=== PATIENT | male | born 1970 | race Caucasian/White ===

== ENCOUNTER → 2023-06-05 | Outpatient (REF) | payer MEDICAID, SELFPAY ==
[2024-01-28 12:02] LABS: Hematocrit 36.5 % (40-54); Hemoglobin 12.1 g/dL (13.0-16.5); Mean Corp Hgb Conc 33.2 g/dL (32-36); Mean Corpuscular Hgb 30.8 pg (27.0-32.0); Mean Corpuscular Volume 92.9 fL (80-94); Red Blood Count 3.93 M/mm3 (4.6-6.2); White Blood Count 4.3 K/mm3 (4.4-11.0)
[2024-01-28 12:03] LABS: Mean Platelet Vol. 10.4 fl (6.2-12.0); Platelet Count 366 K/mm3 (150-450); RBC Distribution Width CV 13.7 % (11.6-14.6); RBC Distribution Width SD 47.2 fl (35.1-43.9)
[2024-01-29 12:04] LABS: BUN 18 mg/dL (7-18); Glucose 86 mg/dL (74-106)
[2024-01-29 12:05] LABS: Albumin, Serum 2.7 g/dL (3.2-5.0); BUN/Creat Ratio 14.4 RATIO (10-20); Creatinine, Serum 1.25 mg/dL (0.70-1.30); EST Glomerular Filtration Rate 64 mL/min (>60); Est Glom Filt Rate - Afr Amer 78 mL/min (>60); Globulin 3.7 g/dL (2.2-4.2); Protein, Total 6.4 g/dL (6.4-8.2)
[2024-01-29 12:06] LABS: ALB/GLOB Ratio 0.7 RATIO (0.9-2.4); AST(SGOT) 11 U/L (15-37); Alanine Aminotransfer ALT/SGPT 19 U/L (16-61); Alkaline Phosphatase 79 U/L (45-117); Calcium,Total 8.5 mg/dL (8.5-10.1)
[2024-01-29 12:07] LABS: Anion Gap 1 (5-15); Chloride 106 mmol/L (98-107); Potassium 3.8 mmol/L (3.5-5.1); Sodium Level 140 mmol/L (136-145)
== END | disposition home or self-care (01) ==
LOC: OLS.SANC 07:45
PROVIDERS: Visit Provider Internal Medicine
DX: Z79.899 Other long term (current) drug therapy (principal)
CPT/HCPCS: 36415; 80053; 85027

== ENCOUNTER → 2023-07-03 | Outpatient (REF) | payer MEDICAID, SELFPAY ==
[2023-07-03 08:46] LABS: Hematocrit 39.8 % (40-54); Hemoglobin 12.8 g/dL (13.0-16.5); Mean Corp Hgb Conc 32.2 g/dL (32-36); Mean Corpuscular Hgb 29.7 pg (27.0-32.0); Mean Corpuscular Volume 92.3 fL (80-94); Mean Platelet Vol. 10.7 fl (6.2-12.0); Platelet Count 201 K/mm3 (150-450); RBC Distribution Width CV 14.3 % (11.6-14.6); RBC Distribution Width SD 48.9 fl (35.1-43.9); Red Blood Count 4.31 M/mm3 (4.6-6.2); White Blood Count 7.8 K/mm3 (4.4-11.0)
[2023-07-03 09:14] LABS: ALB/GLOB Ratio 0.9 RATIO (0.9-2.4); AST(SGOT) 25 U/L (15-37); Alanine Aminotransfer ALT/SGPT 26 U/L (16-61); Albumin, Serum 3.5 g/dL (3.2-5.0); Alkaline Phosphatase 82 U/L (45-117); Anion Gap 6 (5-15); BUN 21 mg/dL (7-18); BUN/Creat Ratio 16.9 RATIO (10-20); Calcium,Total 8.9 mg/dL (8.5-10.1); Chloride 106 mmol/L (98-107); Cholesterol 145 mg/dL (200); Creatinine, Serum 1.24 mg/dL (0.70-1.30); EST Glomerular Filtration Rate 65 mL/min (>60); Est Glom Filt Rate - Afr Amer 79 mL/min (>60); Globulin 3.8 g/dL (2.2-4.2); Glucose 101 mg/dL (74-106); High Density Lipoprotein 37 mg/dL; Potassium 3.8 mmol/L (3.5-5.1); Protein, Total 7.3 g/dL (6.4-8.2); Sodium Level 138 mmol/L (136-145); Triglycerides 99 mg/dL; Very Low Density Lipoprotein 20 mg/dL (5-40)
== END | disposition home or self-care (01) ==
LOC: OLS.SANC 05:00
PROVIDERS: Visit Provider Internal Medicine
DX: N17.1 Acute kidney failure with acute cortical necrosis (principal)
CPT/HCPCS: 36415; 80053; 80061; 82306; 82746; 85027

== ENCOUNTER → 2023-07-13 | Outpatient (REF) | payer MEDICAID, SELFPAY ==
[2023-07-13 10:40] LABS: Thyroid Stim Hormone (TSH) 1.78 uIU/mL (0.358-3.74)
== END | disposition home or self-care (01) ==
LOC: OLS.SANC 04:00
PROVIDERS: Referring Provider Internal Medicine; Visit Provider Internal Medicine
DX: Z79.899 Other long term (current) drug therapy (principal)
CPT/HCPCS: 36415; 84443

== ENCOUNTER → 2023-08-28 | Outpatient (REF) | payer MEDICAID, SELFPAY ==
[2023-08-28 09:08] LABS: Hemoglobin 11.9 g/dL (13.0-16.5); Mean Corp Hgb Conc 33.1 g/dL (32-36); Mean Corpuscular Hgb 31.2 pg (27.0-32.0); Mean Corpuscular Volume 94.2 fL (80-94); Mean Platelet Vol. 10.1 fl (6.2-12.0); Platelet Count 279 K/mm3 (150-450); RBC Distribution Width CV 13.6 % (11.6-14.6); RBC Distribution Width SD 46.5 fl (35.1-43.9); Red Blood Count 3.82 M/mm3 (4.6-6.2); White Blood Count 6.2 K/mm3 (4.4-11.0)
[2023-08-28 09:34] LABS: Anion Gap 6 (5-15); BUN 16 mg/dL (7-18); BUN/Creat Ratio 13.7 RATIO (10-20); Calcium,Total 9.2 mg/dL (8.5-10.1); Chloride 109 mmol/L (98-107); Creatinine, Serum 1.17 mg/dL (0.70-1.30); EST Glomerular Filtration Rate 70 mL/min (>60); Est Glom Filt Rate - Afr Amer 84 mL/min (>60); Glucose 101 mg/dL (74-106); Sodium Level 143 mmol/L (136-145)
== END | disposition home or self-care (01) ==
LOC: OLS.SANC 05:00
PROVIDERS: Visit Provider Internal Medicine
DX: N17.1 Acute kidney failure with acute cortical necrosis (principal); G35 Multiple sclerosis
CPT/HCPCS: 36415; 80048; 85027

== ENCOUNTER → 2023-09-11 | Outpatient (REF) | payer MEDICAID, SELFPAY ==
[2023-09-11 08:43] LABS: Hematocrit 36.9 % (40-54); Mean Corp Hgb Conc 32.5 g/dL (32-36); Mean Corpuscular Hgb 30.8 pg (27.0-32.0); Mean Corpuscular Volume 94.6 fL (80-94); Mean Platelet Vol. 10.6 fl (6.2-12.0); Platelet Count 247 K/mm3 (150-450); RBC Distribution Width CV 13.4 % (11.6-14.6); RBC Distribution Width SD 46.1 fl (35.1-43.9); White Blood Count 6.4 K/mm3 (4.4-11.0)
[2023-09-11 10:58] LABS: Anion Gap 4 (5-15); BUN 19 mg/dL (7-18); BUN/Creat Ratio 15.4 RATIO (10-20); Chloride 109 mmol/L (98-107); Creatinine, Serum 1.23 mg/dL (0.70-1.30); EST Glomerular Filtration Rate 66 mL/min (>60); Est Glom Filt Rate - Afr Amer 79 mL/min (>60); Glucose 96 mg/dL (74-106); Potassium 3.9 mmol/L (3.5-5.1); Sodium Level 140 mmol/L (136-145)
== END | disposition home or self-care (01) ==
LOC: OLS.SANC 05:00
PROVIDERS: Visit Provider Internal Medicine
DX: N17.1 Acute kidney failure with acute cortical necrosis (principal)
CPT/HCPCS: 36415; 80048; 85027

== ENCOUNTER → 2023-10-09 | Outpatient (REF) | payer MEDICAID, SELFPAY ==
[2023-10-09 09:33] LABS: Hematocrit 41.2 % (40-54); Hemoglobin 13.3 g/dL (13.0-16.5); Mean Corp Hgb Conc 32.3 g/dL (32-36); Platelet Count 246 K/mm3 (150-450); RBC Distribution Width CV 12.9 % (11.6-14.6); RBC Distribution Width SD 44.1 fl (35.1-43.9); Red Blood Count 4.43 M/mm3 (4.6-6.2); White Blood Count 7.1 K/mm3 (4.4-11.0)
[2023-10-09 09:43] LABS: Anion Gap 7 (5-15); BUN 15 mg/dL (7-18); BUN/Creat Ratio 12.2 RATIO (10-20); Calcium,Total 9.1 mg/dL (8.5-10.1); Chloride 103 mmol/L (98-107); Creatinine, Serum 1.23 mg/dL (0.70-1.30); EST Glomerular Filtration Rate 66 mL/min (>60); Est Glom Filt Rate - Afr Amer 79 mL/min (>60); Glucose 104 mg/dL (74-106); Potassium 3.9 mmol/L (3.5-5.1); Sodium Level 139 mmol/L (136-145)
== END | disposition home or self-care (01) ==
LOC: OLS.SANC 05:00
PROVIDERS: Visit Provider Internal Medicine
DX: G35 Multiple sclerosis (principal)
CPT/HCPCS: 36415; 80048; 85027

== ENCOUNTER → 2023-12-03 | Outpatient (REF) | payer MEDICAID, SELFPAY ==
[2023-12-03 10:22] LABS: Basophil# 0.04 X10^3/uL; Eosinophil# 0.34 X10^3/uL; Lymphocyte # 1.99 X10^3/ul (0.83-4.51); Monocyte# 0.87 X10^3/uL
[2024-01-29 12:14] LABS: Immunoglobulin A 320 mg/dL (90-386); Immunoglobulin G 1046 mg/dL (603-1613)
[2024-01-29 12:15] LABS: Hemoglobin 13.5 g/dL (13.0-16.5); Immunoglobulin E 112 IU/mL (6-495); Immunoglobulin M 30 mg/dL (20-172); Red Blood Count 4.68 M/mm3 (4.6-6.2); White Blood Count 6.9 K/mm3 (4.4-11.0)
[2024-01-29 12:16] LABS: Hematocrit 42.5 % (40-54); Mean Corp Hgb Conc 31.8 g/dL (32-36); Mean Corpuscular Hgb 28.8 pg (27.0-32.0); Mean Corpuscular Volume 90.8 fL (80-94); Mean Platelet Vol. 10.7 fl (6.2-12.0); Platelet Count 259 K/mm3 (150-450); RBC Distribution Width CV 12.7 % (11.6-14.6); RBC Distribution Width SD 42.1 fl (35.1-43.9)
[2024-01-29 12:17] LABS: Basophil% 0.6 % (0-1); Lymphocyte % 29.1 % (19-41); Monocyte% 12.7 % (0-10); Neutrophil % 51.3 % (47-70)
[2024-01-29 12:18] LABS: Absolute Lymphocyte Count 1.99 X10^3/uL (0.83-4.51); Absolute Neutrophil Count 3.5 X10^3/uL (2.0-7.7); NRBC Flagged by Analyzer 0 % (0-5); Neutrophil # 3.52 X10^3/uL (2.7-7.7)
[2024-01-29 12:19] LABS: BUN 18 mg/dL (7-18); EST Glomerular Filtration Rate 75 mL/min (>60); Est Glom Filt Rate - Afr Amer 91 mL/min (>60); Glucose 85 mg/dL (74-106)
[2024-01-29 12:20] LABS: Albumin, Serum 3.7 g/dL (3.2-5.0); BUN/Creat Ratio 16.4 RATIO (10-20); Globulin 3.6 g/dL (2.2-4.2); Protein, Total 7.3 g/dL (6.4-8.2)
[2024-01-29 12:21] LABS: AST(SGOT) 14 U/L (15-37); Alanine Aminotransfer ALT/SGPT 23 U/L (16-61); Alkaline Phosphatase 80 U/L (45-117); Calcium,Total 9.2 mg/dL (8.5-10.1)
[2024-01-29 12:22] LABS: Anion Gap 4 (5-15); Chloride 108 mmol/L (98-107); Potassium 3.7 mmol/L (3.5-5.1); Sodium Level 139 mmol/L (136-145)
== END | disposition home or self-care (01) ==
LOC: OLS.SANC 05:00
PROVIDERS: Visit Provider Internal Medicine
DX: G35 Multiple sclerosis (principal); N17.1 Acute kidney failure with acute cortical necrosis; M62.82 Rhabdomyolysis
CPT/HCPCS: 36415; 80053; 82784; 82785; 85025

== ENCOUNTER → 2024-01-09 | Outpatient (REF) | payer MEDICAID, SELFPAY ==
[2024-01-29 12:10] LABS: Hemoglobin 13.4 g/dL (13.0-16.5); Red Blood Count 4.74 M/mm3 (4.6-6.2); White Blood Count 7.5 K/mm3 (4.4-11.0)
[2024-01-29 12:11] LABS: Hematocrit 42.6 % (40-54); Mean Corp Hgb Conc 31.5 g/dL (32-36); Mean Corpuscular Hgb 28.3 pg (27.0-32.0); Mean Corpuscular Volume 89.9 fL (80-94); Mean Platelet Vol. 10.2 fl (6.2-12.0); Platelet Count 287 K/mm3 (150-450); RBC Distribution Width CV 13.1 % (11.6-14.6); RBC Distribution Width SD 42.7 fl (35.1-43.9)
[2024-01-29 12:12] LABS: BUN 13 mg/dL (7-18); Creatinine, Serum 1.24 mg/dL (0.70-1.30); EST Glomerular Filtration Rate 65 mL/min (>60); Est Glom Filt Rate - Afr Amer 79 mL/min (>60); Glucose 107 mg/dL (74-106)
[2024-01-29 12:13] LABS: Anion Gap 2 (5-15); BUN/Creat Ratio 10.5 RATIO (10-20); Calcium,Total 9.3 mg/dL (8.5-10.1); Chloride 107 mmol/L (98-107); Potassium 3.7 mmol/L (3.5-5.1); Sodium Level 137 mmol/L (136-145); Thyroid Stim Hormone (TSH) 2.32 uIU/mL (0.358-3.74)
== END | disposition home or self-care (01) ==
LOC: OLS.SANC 05:00
PROVIDERS: Visit Provider Internal Medicine
DX: G35 Multiple sclerosis (principal); Z79.899 Other long term (current) drug therapy
CPT/HCPCS: 36415; 80048; 84443; 85027

== ENCOUNTER → 2024-01-23 | Outpatient (REF) | payer MEDICAID, SELFPAY ==
[2024-01-29 12:10] LABS: Hemoglobin A1c 5.5 % (3.8-5.6)
== END | disposition home or self-care (01) ==
LOC: OLS.SANC 04:00
PROVIDERS: Referring Provider Internal Medicine; Visit Provider Internal Medicine
DX: G35 Multiple sclerosis (principal)
CPT/HCPCS: 36415; 83036

== ENCOUNTER → 2024-01-30 | Outpatient (REF) | payer MEDICAID, SELFPAY ==
[2024-01-30 08:29] LABS: Absolute Lymphocyte Count 1.92 X10^3/uL (0.83-4.51); Absolute Neutrophil Count 4.2 X10^3/uL (2.0-7.7); Basophil# 0.03 X10^3/uL; Basophil% 0.4 % (0-1); Eosinophil# 0.45 X10^3/uL; Hematocrit 40.1 % (40-54); Hemoglobin 12.8 g/dL (13.0-16.5); Lymphocyte # 1.92 X10^3/ul (0.83-4.51); Lymphocyte % 25.7 % (19-41); Mean Corp Hgb Conc 31.9 g/dL (32-36); Mean Corpuscular Volume 90.7 fL (80-94); Mean Platelet Vol. 10.4 fl (6.2-12.0); Monocyte# 0.86 X10^3/uL; Monocyte% 11.5 % (0-10); NRBC Flagged by Analyzer 0 % (0-5); Neutrophil # 4.15 X10^3/uL (2.7-7.7); Neutrophil % 55.5 % (47-70); Platelet Count 288 K/mm3 (150-450); RBC Distribution Width CV 13.3 % (11.6-14.6); RBC Distribution Width SD 44.1 fl (35.1-43.9); Red Blood Count 4.42 M/mm3 (4.6-6.2); White Blood Count 7.5 K/mm3 (4.4-11.0)
[2024-01-30 08:38] LABS: ALB/GLOB Ratio 0.9 RATIO (0.9-2.4); AST(SGOT) 17 U/L (15-37); Alanine Aminotransfer ALT/SGPT 21 U/L (16-61); Albumin, Serum 3.4 g/dL (3.2-5.0); Alkaline Phosphatase 92 U/L (45-117); Anion Gap 6 (5-15); BUN 13 mg/dL (7-18); BUN/Creat Ratio 10.4 RATIO (10-20); Chloride 106 mmol/L (98-107); Creatinine, Serum 1.25 mg/dL (0.70-1.30); EST Glomerular Filtration Rate 64 mL/min (>60); Est Glom Filt Rate - Afr Amer 78 mL/min (>60); Globulin 3.9 g/dL (2.2-4.2); Glucose 115 mg/dL (74-106); Potassium 3.7 mmol/L (3.5-5.1); Protein, Total 7.3 g/dL (6.4-8.2); Sodium Level 139 mmol/L (136-145)
== END | disposition home or self-care (01) ==
LOC: OLS.SANC 05:00
PROVIDERS: Visit Provider Internal Medicine
DX: G35 Multiple sclerosis (principal); G93.32 Myalgic encephalomyelitis/chronic fatigue syndrome; Z79.899 Other long term (current) drug therapy
CPT/HCPCS: 36415; 80053; 85025

== ENCOUNTER → 2024-02-13 | Outpatient (REF) | payer MEDICAID, SELFPAY ==
[2024-02-13 08:16] LABS: Hematocrit 41.7 % (40-54); Mean Corp Hgb Conc 31.2 g/dL (32-36); Mean Corpuscular Hgb 28.4 pg (27.0-32.0); Mean Corpuscular Volume 91.2 fL (80-94); Mean Platelet Vol. 10.3 fl (6.2-12.0); Platelet Count 287 K/mm3 (150-450); RBC Distribution Width CV 13.4 % (11.6-14.6); RBC Distribution Width SD 45.1 fl (35.1-43.9); Red Blood Count 4.57 M/mm3 (4.6-6.2); White Blood Count 7.6 K/mm3 (4.4-11.0)
[2024-02-13 08:27] LABS: Anion Gap 5 (5-15); BUN 10 mg/dL (7-18); BUN/Creat Ratio 8.5 RATIO (10-20); Chloride 108 mmol/L (98-107); Creatinine, Serum 1.18 mg/dL (0.70-1.30); EST Glomerular Filtration Rate 69 mL/min (>60); Est Glom Filt Rate - Afr Amer 83 mL/min (>60); Glucose 98 mg/dL (74-106); Potassium 3.6 mmol/L (3.5-5.1); Sodium Level 140 mmol/L (136-145)
== END | disposition home or self-care (01) ==
LOC: OLS.SANC 05:00
PROVIDERS: Visit Provider Internal Medicine
DX: G35 Multiple sclerosis (principal)
CPT/HCPCS: 36415; 80048; 85027

== ENCOUNTER → 2024-03-04 | Outpatient (REF) | payer MEDICAID, SELFPAY ==
[2024-03-04 09:57] LABS: Hematocrit 42.5 % (40-54); Hemoglobin 13.4 g/dL (13.0-16.5); Mean Corp Hgb Conc 31.5 g/dL (32-36); Mean Corpuscular Hgb 28.6 pg (27.0-32.0); Mean Corpuscular Volume 90.8 fL (80-94); Mean Platelet Vol. 10.3 fl (6.2-12.0); Platelet Count 298 K/mm3 (150-450); RBC Distribution Width CV 13.3 % (11.6-14.6); RBC Distribution Width SD 44.6 fl (35.1-43.9); Red Blood Count 4.68 M/mm3 (4.6-6.2); White Blood Count 7.2 K/mm3 (4.4-11.0)
[2024-03-04 10:09] LABS: Anion Gap 4 (5-15); BUN 12 mg/dL (7-18); BUN/Creat Ratio 9.2 RATIO (10-20); Calcium,Total 9.3 mg/dL (8.5-10.1); Chloride 107 mmol/L (98-107); EST Glomerular Filtration Rate 61 mL/min (>60); Est Glom Filt Rate - Afr Amer 74 mL/min (>60); Glucose 100 mg/dL (74-106); Potassium 4.2 mmol/L (3.5-5.1); Sodium Level 138 mmol/L (136-145)
== END | disposition home or self-care (01) ==
LOC: OLS.SANC 05:30
PROVIDERS: Visit Provider Internal Medicine
DX: G35 Multiple sclerosis (principal)
CPT/HCPCS: 36415; 80048; 85027

== ENCOUNTER → 2024-03-05 | Outpatient (REF) | payer MEDICAID, SELFPAY ==
[2024-03-05 08:33] LABS: Hematocrit 45.2 % (40-54); Hemoglobin 13.9 g/dL (13.0-16.5); Mean Corp Hgb Conc 30.8 g/dL (32-36); Mean Corpuscular Hgb 28.3 pg (27.0-32.0); Mean Corpuscular Volume 92.1 fL (80-94); Mean Platelet Vol. 10.3 fl (6.2-12.0); Platelet Count 310 K/mm3 (150-450); RBC Distribution Width CV 13.4 % (11.6-14.6); Red Blood Count 4.91 M/mm3 (4.6-6.2); White Blood Count 7.9 K/mm3 (4.4-11.0)
[2024-03-05 08:50] LABS: Anion Gap 7 (5-15); BUN 13 mg/dL (7-18); BUN/Creat Ratio 9.9 RATIO (10-20); Calcium,Total 9.5 mg/dL (8.5-10.1); Chloride 106 mmol/L (98-107); Creatinine, Serum 1.31 mg/dL (0.70-1.30); EST Glomerular Filtration Rate 61 mL/min (>60); Est Glom Filt Rate - Afr Amer 74 mL/min (>60); Glucose 93 mg/dL (74-106); Sodium Level 139 mmol/L (136-145)
== END | disposition home or self-care (01) ==
LOC: OLS.SANC 05:00
PROVIDERS: Visit Provider Internal Medicine
DX: G35 Multiple sclerosis (principal); N17.1 Acute kidney failure with acute cortical necrosis
CPT/HCPCS: 36415; 80048; 85027

== ENCOUNTER → 2024-04-07 | Outpatient (REF) | payer MEDICAID, SELFPAY ==
[2024-04-07 08:18] LABS: Hematocrit 44.8 % (40-54); Hemoglobin 13.9 g/dL (13.0-16.5); Mean Corpuscular Hgb 28.1 pg (27.0-32.0); Mean Corpuscular Volume 90.5 fL (80-94); Mean Platelet Vol. 10.2 fl (6.2-12.0); Platelet Count 323 K/mm3 (150-450); RBC Distribution Width CV 13.8 % (11.6-14.6); RBC Distribution Width SD 45.6 fl (35.1-43.9); Red Blood Count 4.95 M/mm3 (4.6-6.2); White Blood Count 8.9 K/mm3 (4.4-11.0)
[2024-04-07 08:34] LABS: Anion Gap 7 (5-15); BUN 14 mg/dL (7-18); BUN/Creat Ratio 11.8 RATIO (10-20); Calcium,Total 9.7 mg/dL (8.5-10.1); Chloride 106 mmol/L (98-107); Creatinine, Serum 1.19 mg/dL (0.70-1.30); EST Glomerular Filtration Rate 68 mL/min (>60); Est Glom Filt Rate - Afr Amer 82 mL/min (>60); Glucose 99 mg/dL (74-106); Potassium 4.2 mmol/L (3.5-5.1); Sodium Level 138 mmol/L (136-145)
== END | disposition home or self-care (01) ==
LOC: OLS.SANC 05:00
PROVIDERS: Visit Provider Internal Medicine
DX: G35 Multiple sclerosis (principal); M62.82 Rhabdomyolysis
CPT/HCPCS: 36415; 80048; 85027

== ENCOUNTER → 2024-04-10 | Outpatient (REF) | payer MEDICAID, SELFPAY ==
[2024-04-10 08:54] LABS: Hematocrit 43.3 % (40-54); Hemoglobin 13.5 g/dL (13.0-16.5); Mean Corp Hgb Conc 31.2 g/dL (32-36); Mean Corpuscular Hgb 28.1 pg (27.0-32.0); Mean Platelet Vol. 10.6 fl (6.2-12.0); Platelet Count 294 K/mm3 (150-450); RBC Distribution Width SD 46.8 fl (35.1-43.9); Red Blood Count 4.81 M/mm3 (4.6-6.2); White Blood Count 8.4 K/mm3 (4.4-11.0)
[2024-04-10 09:06] LABS: Anion Gap 5 (5-15); BUN 15 mg/dL (7-18); BUN/Creat Ratio 11.8 RATIO (10-20); Chloride 109 mmol/L (98-107); Creatinine, Serum 1.27 mg/dL (0.70-1.30); EST Glomerular Filtration Rate 63 mL/min (>60); Est Glom Filt Rate - Afr Amer 76 mL/min (>60); Glucose 97 mg/dL (74-106); Sodium Level 141 mmol/L (136-145)
== END | disposition home or self-care (01) ==
LOC: OLS.SANC 05:00
PROVIDERS: Visit Provider Internal Medicine
DX: G35 Multiple sclerosis (principal)
CPT/HCPCS: 36415; 80048; 85027

== ENCOUNTER → 2024-06-02 | Outpatient (REF) | payer MEDICAID, SELFPAY ==
[2024-06-02 08:31] LABS: Hematocrit 43.9 % (40-54); Hemoglobin 13.8 g/dL (13.0-16.5); Mean Corp Hgb Conc 31.4 g/dL (32-36); Mean Corpuscular Hgb 27.5 pg (27.0-32.0); Mean Corpuscular Volume 87.6 fL (80-94); Mean Platelet Vol. 10.9 fl (6.2-12.0); Platelet Count 322 K/mm3 (150-450); RBC Distribution Width CV 14.4 % (11.6-14.6); RBC Distribution Width SD 46.1 fl (35.1-43.9); Red Blood Count 5.01 M/mm3 (4.6-6.2); White Blood Count 8.9 K/mm3 (4.4-11.0)
[2024-06-02 08:59] LABS: AST(SGOT) 19 U/L (15-37); Alanine Aminotransfer ALT/SGPT 22 U/L (16-61); Albumin, Serum 3.8 g/dL (3.2-5.0); Alkaline Phosphatase 120 U/L (45-117); Anion Gap 7 (5-15); BUN 9 mg/dL (7-18); BUN/Creat Ratio 7.7 RATIO (10-20); Calcium,Total 8.9 mg/dL (8.5-10.1); Chloride 105 mmol/L (98-107); Creatinine, Serum 1.17 mg/dL (0.70-1.30); EST Glomerular Filtration Rate 69 mL/min (>60); Est Glom Filt Rate - Afr Amer 84 mL/min (>60); Globulin 3.8 g/dL (2.2-4.2); Glucose 102 mg/dL (74-106); Potassium 3.8 mmol/L (3.5-5.1); Protein, Total 7.6 g/dL (6.4-8.2); Sodium Level 138 mmol/L (136-145)
[2024-06-03 05:08] LABS: Immunoglobulin G 1047 mg/dL (603-1613)
== END | disposition home or self-care (01) ==
LOC: OLS.SANC 05:00
PROVIDERS: Visit Provider Internal Medicine
DX: G35 Multiple sclerosis (principal); N17.1 Acute kidney failure with acute cortical necrosis; G93.32 Myalgic encephalomyelitis/chronic fatigue syndrome
CPT/HCPCS: 36415; 80053; 82784; 85027

== ENCOUNTER → 2024-06-09 | Outpatient (REF) | payer MEDICAID, SELFPAY ==
[2024-06-09 08:47] LABS: Absolute Lymphocyte Count 2.49 X10^3/uL (0.83-4.51); Absolute Neutrophil Count 3.3 X10^3/uL (2.0-7.7); Basophil# 0.05 X10^3/uL; Basophil% 0.7 % (0-1); Eosinophil# 0.55 X10^3/uL; Eosinophils% 7.7 % (0-5); Hematocrit 45.4 % (40-54); Hemoglobin 14.2 g/dL (13.0-16.5); Lymphocyte # 2.49 X10^3/ul (0.83-4.51); Mean Corp Hgb Conc 31.3 g/dL (32-36); Mean Corpuscular Hgb 27.4 pg (27.0-32.0); Mean Corpuscular Volume 87.5 fL (80-94); Mean Platelet Vol. 10.4 fl (6.2-12.0); Monocyte# 0.71 X10^3/uL; NRBC Flagged by Analyzer 0 % (0-5); Neutrophil # 3.26 X10^3/uL (2.7-7.7); Neutrophil % 45.9 % (47-70); Platelet Count 335 K/mm3 (150-450); RBC Distribution Width CV 14.5 % (11.6-14.6); RBC Distribution Width SD 46.3 fl (35.1-43.9); Red Blood Count 5.19 M/mm3 (4.6-6.2); White Blood Count 7.1 K/mm3 (4.4-11.0)
== END | disposition home or self-care (01) ==
LOC: OLS.SANC 05:00
PROVIDERS: Visit Provider Internal Medicine
DX: N17.1 Acute kidney failure with acute cortical necrosis (principal); G35 Multiple sclerosis; Z79.899 Other long term (current) drug therapy
CPT/HCPCS: 36415; 85025

== ENCOUNTER → 2024-07-07 | Outpatient (REF) | payer MEDICAID, SELFPAY ==
[2024-07-07 08:39] LABS: Hematocrit 43.3 % (40-54); Hemoglobin 13.5 g/dL (13.0-16.5); Mean Corp Hgb Conc 31.2 g/dL (32-36); Mean Corpuscular Hgb 27.6 pg (27.0-32.0); Mean Corpuscular Volume 88.5 fL (80-94); Mean Platelet Vol. 10.2 fl (6.2-12.0); Platelet Count 320 K/mm3 (150-450); RBC Distribution Width CV 14.7 % (11.6-14.6); RBC Distribution Width SD 47.8 fl (35.1-43.9); Red Blood Count 4.89 M/mm3 (4.6-6.2); White Blood Count 7.7 K/mm3 (4.4-11.0)
[2024-07-07 08:59] LABS: Anion Gap 5 (5-15); BUN 11 mg/dL (7-18); BUN/Creat Ratio 11.4 RATIO (10-20); Chloride 107 mmol/L (98-107); Creatinine, Serum 0.96 mg/dL (0.70-1.30); EST Glomerular Filtration Rate 87 mL/min (>60); Est Glom Filt Rate - Afr Amer 105 mL/min (>60); Glucose 109 mg/dL (74-106); Potassium 3.5 mmol/L (3.5-5.1); Sodium Level 139 mmol/L (136-145)
== END | disposition home or self-care (01) ==
LOC: OLS.SANC 05:00
PROVIDERS: Visit Provider Internal Medicine
DX: G35 Multiple sclerosis (principal)
CPT/HCPCS: 36415; 80048; 85027

== ENCOUNTER → 2024-07-28 | Outpatient (REF) | payer MEDICAID, SELFPAY ==
[2024-07-28 10:03] LABS: Hemoglobin A1c 5.8 % (3.8-5.6)
== END | disposition home or self-care (01) ==
LOC: OLS.SANC 04:00
PROVIDERS: Referring Provider Internal Medicine; Visit Provider Internal Medicine
DX: E11.9 Type 2 diabetes mellitus without complications (principal)
CPT/HCPCS: 36415; 83036

== ENCOUNTER → 2024-08-07 | Outpatient (REF) | payer MEDICAID, SELFPAY ==
[2024-08-07 08:40] LABS: Hematocrit 43.2 % (40-54); Hemoglobin 13.5 g/dL (13.0-16.5); Mean Corp Hgb Conc 31.3 g/dL (32-36); Mean Corpuscular Hgb 27.2 pg (27.0-32.0); Mean Corpuscular Volume 87.1 fL (80-94); Mean Platelet Vol. 10.5 fl (6.2-12.0); Platelet Count 328 K/mm3 (150-450); RBC Distribution Width CV 14.6 % (11.6-14.6); RBC Distribution Width SD 46.7 fl (35.1-43.9); Red Blood Count 4.96 M/mm3 (4.6-6.2); White Blood Count 5.8 K/mm3 (4.4-11.0)
[2024-08-07 08:53] LABS: Anion Gap 6 (5-15); BUN 10 mg/dL (7-18); BUN/Creat Ratio 8.8 RATIO (10-20); Calcium,Total 9.5 mg/dL (8.5-10.1); Chloride 106 mmol/L (98-107); Creatinine, Serum 1.13 mg/dL (0.70-1.30); EST Glomerular Filtration Rate 72 mL/min (>60); Est Glom Filt Rate - Afr Amer 87 mL/min (>60); Glucose 92 mg/dL (74-106); Potassium 3.8 mmol/L (3.5-5.1); Sodium Level 138 mmol/L (136-145)
== END | disposition home or self-care (01) ==
LOC: OLS.SANC 05:00
PROVIDERS: Visit Provider Internal Medicine
DX: N17.1 Acute kidney failure with acute cortical necrosis (principal); K21.9 Gastro-esophageal reflux disease without esophagitis; G35 Multiple sclerosis
CPT/HCPCS: 36415; 80048; 85027

== ENCOUNTER → 2024-09-02 | Outpatient (REF) | payer MEDICAID, SELFPAY ==
[2024-09-02 08:32] LABS: Hematocrit 41.9 % (40-54); Hemoglobin 13.3 g/dL (13.0-16.5); Mean Corp Hgb Conc 31.7 g/dL (32-36); Mean Corpuscular Hgb 27.9 pg (27.0-32.0); Mean Platelet Vol. 10.3 fl (6.2-12.0); Platelet Count 358 K/mm3 (150-450); RBC Distribution Width CV 14.6 % (11.6-14.6); RBC Distribution Width SD 47.1 fl (35.1-43.9); Red Blood Count 4.76 M/mm3 (4.6-6.2); White Blood Count 7.3 K/mm3 (4.4-11.0)
[2024-09-02 08:56] LABS: Anion Gap 8 (5-15); BUN 10 mg/dL (7-18); BUN/Creat Ratio 9.3 RATIO (10-20); Chloride 105 mmol/L (98-107); Creatinine, Serum 1.07 mg/dL (0.70-1.30); EST Glomerular Filtration Rate 77 mL/min (>60); Est Glom Filt Rate - Afr Amer 93 mL/min (>60); Glucose 95 mg/dL (74-106); Potassium 3.8 mmol/L (3.5-5.1); Sodium Level 140 mmol/L (136-145)
== END | disposition home or self-care (01) ==
LOC: OLS.SANC 04:00
PROVIDERS: Referring Provider Internal Medicine; Visit Provider Internal Medicine
DX: G35 Multiple sclerosis (principal); N17.1 Acute kidney failure with acute cortical necrosis
CPT/HCPCS: 36415; 80048; 85027

== ENCOUNTER → 2024-11-05 | Outpatient (REF) | payer MEDICAID, SELFPAY ==
[2024-11-05 09:11] LABS: Hemoglobin 12.9 g/dL (13.0-16.5); Mean Corp Hgb Conc 31.5 g/dL (32-36); Mean Corpuscular Hgb 27.6 pg (27.0-32.0); Mean Corpuscular Volume 87.8 fL (80-94); Mean Platelet Vol. 10.8 fl (6.2-12.0); Platelet Count 306 K/mm3 (150-450); RBC Distribution Width CV 15.7 % (11.6-14.6); RBC Distribution Width SD 50.1 fl (35.1-43.9); Red Blood Count 4.67 M/mm3 (4.6-6.2); White Blood Count 7.4 K/mm3 (4.4-11.0)
[2024-11-05 09:36] LABS: Anion Gap 11 (5-15); BUN 9 mg/dL (4-19); BUN/Creat Ratio 7.6 RATIO (10-20); Calcium,Total 9.1 mg/dL (7.6-11.0); Carbon Dioxide 24.5 mmol/L (21.0-32.0); Chloride 107 mmol/L (98-108); Creatinine, Serum 1.12 mg/dL (0.70-1.20); EST Glomerular Filtration Rate 79 (>60); Glucose 105 mg/dL (70-99); Potassium 3.9 mmol/L (3.3-5.1); Sodium Level 142 mmol/L (133-145)
== END | disposition home or self-care (01) ==
LOC: OLS.SANC 05:00
PROVIDERS: Visit Provider Internal Medicine
DX: G35 Multiple sclerosis (principal); G93.32 Myalgic encephalomyelitis/chronic fatigue syndrome
CPT/HCPCS: 36415; 80048; 85027

== ENCOUNTER → 2024-12-01 | Outpatient (REF) | payer MEDICAID, SELFPAY ==
[2024-12-01 08:52] LABS: Absolute Lymphocyte Count 2.43 X10^3/uL (0.83-4.51); Absolute Neutrophil Count 4.8 X10^3/uL (2.0-7.7); Basophil# 0.04 X10^3/uL; Basophil% 0.5 % (0-1); Eosinophil# 0.29 X10^3/uL; Eosinophils% 3.4 % (0-5); Hematocrit 41.4 % (40-54); Hemoglobin 13.3 g/dL (13.0-16.5); Lymphocyte # 2.43 X10^3/ul (0.83-4.51); Lymphocyte % 28.7 % (19-41); Mean Corp Hgb Conc 32.1 g/dL (32-36); Mean Corpuscular Hgb 27.8 pg (27.0-32.0); Mean Corpuscular Volume 86.6 fL (80-94); Mean Platelet Vol. 10.6 fl (6.2-12.0); Monocyte# 0.82 X10^3/uL; Monocyte% 9.7 % (0-10); NRBC Flagged by Analyzer 0 % (0-5); Neutrophil # 4.83 X10^3/uL (2.7-7.7); Neutrophil % 57.1 % (47-70); Platelet Count 326 K/mm3 (150-450); RBC Distribution Width CV 15.4 % (11.6-14.6); RBC Distribution Width SD 49.5 fl (35.1-43.9); Red Blood Count 4.78 M/mm3 (4.6-6.2); White Blood Count 8.5 K/mm3 (4.4-11.0)
[2024-12-01 09:05] LABS: ALB/GLOB Ratio 1.3 RATIO (0.9-2.4); AST(SGOT) 23 U/L (<=37); Alanine Aminotransfer ALT/SGPT 13 U/L (<=46); Alkaline Phosphatase 120 U/L (40-129); Anion Gap 10 (5-15); BUN 7 mg/dL (4-19); BUN/Creat Ratio 7.2 RATIO (10-20); Calcium,Total 9.5 mg/dL (7.6-11.0); Carbon Dioxide 23.7 mmol/L (21.0-32.0); Chloride 104 mmol/L (98-108); Creatinine, Serum 1.02 mg/dL (0.70-1.20); EST Glomerular Filtration Rate 88 (>60); Globulin 3.1 g/dL (2.2-4.2); Glucose 90 mg/dL (70-99); Potassium 3.9 mmol/L (3.3-5.1); Protein, Total 7.1 g/dL (5.9-8.4); Sodium Level 138 mmol/L (133-145); Total Bilirubin 0.28 mg/dL (0.00-1.30)
[2024-12-02 05:07] LABS: Immunoglobulin G 949 mg/dL (603-1613)
== END | disposition home or self-care (01) ==
LOC: OLS.SANC 05:00
PROVIDERS: Visit Provider Internal Medicine
DX: G35 Multiple sclerosis (principal)
CPT/HCPCS: 36415; 80053; 82784; 85025

== ENCOUNTER → 2024-12-04 | Outpatient (REF) | payer MEDICAID, SELFPAY ==
[2024-12-04 07:42] LABS: Hematocrit 41.1 % (40-54); Hemoglobin 13.1 g/dL (13.0-16.5); Mean Corp Hgb Conc 31.9 g/dL (32-36); Mean Corpuscular Volume 87.8 fL (80-94); Mean Platelet Vol. 10.6 fl (6.2-12.0); Platelet Count 296 K/mm3 (150-450); RBC Distribution Width CV 15.7 % (11.6-14.6); RBC Distribution Width SD 50.6 fl (35.1-43.9); Red Blood Count 4.68 M/mm3 (4.6-6.2); White Blood Count 6.6 K/mm3 (4.4-11.0)
[2024-12-04 11:20] LABS: Anion Gap 10 (5-15); BUN 9 mg/dL (4-19); BUN/Creat Ratio 8.2 RATIO (10-20); Calcium,Total 9.2 mg/dL (7.6-11.0); Chloride 104 mmol/L (98-108); Creatinine, Serum 1.16 mg/dL (0.70-1.20); EST Glomerular Filtration Rate 75 (>60); Glucose 106 mg/dL (70-99); Sodium Level 140 mmol/L (133-145)
== END | disposition home or self-care (01) ==
LOC: OLS.SANC 05:00
PROVIDERS: Visit Provider Internal Medicine
DX: G35 Multiple sclerosis (principal); M62.82 Rhabdomyolysis
CPT/HCPCS: 36415; 80048; 85027

== ENCOUNTER → 2025-01-26 | Outpatient (REF) | payer MEDICAID, SELFPAY ==
--- OUTSIDE RECORDS SUMMARY | 2025-01-26 03:51 | XMS RPT_ITS | CCD ---
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 [address] [place], [address] Glucose [Mass/Vol] 90 mg/dL Normal 70-99 [facility] Comment on above: Order Comment: 112.2 Performed By: #### L 100.0500, L500.2500 #### [facility] [address] [place], [address] Potassium [Moles/Vol] 3.9 mmol/L Normal 3.3-5.1 [facility] Comment on above: Order Comment: 112.2 Result Comment: Hemo lysis present, Results??could be affected. ?? Performed By: #### L 100.0500, L500.2500 #### [facility] [address] [place], [address] Sodium [Moles/Vol] 138 mmol/L Normal 133-145 [facility] Comment on above: Order Comment: 112.2 Performed By: #### L 100.0500, L500.2500 #### [facility] [address] [place], [address] T PROT 7.1 g/dL Normal 5.9-8.4 [facility] Comment on above: Order Comment: 112.2 Performed By: #### L 100.0500, L500.2500 #### [facility] [address] [place], [address] Urea nitrogen [Mass/Vol] 7 mg/dL Normal 4-19 [facility] Comment on above: Order Comment: 112.2 Performed By: #### L 100.0500, L500.2500 #### [facility] [address] [place], [address] Eosinophil percentageOrdered By: Willie Regalado on 12-01-2024 Eosinophils/100 WBC (Bld) 3.4 % 0-5 [facility] Erythrocyte distribution wid th ratioOrdered By: Willie Regalado on 12-01-2024 Erythrocyte distribution width (RBC) [Ratio] 15.4 % High 11.6-14.6 [facility] Erythrocyte distribution wid th standard deviationOrdered By: Willie Regalado on 12-01-2024 Erythrocyte distribution width (RBC) [Ratio] 49.5 fl High 35.1-43.9 [facility] Glomerular filtration rate ( GFR) estimation/1.73 sq m using serum, plasma, or whole bOrdered By: Willie Regalado on 12-01-2024 GFR/1.73 sq M.predicted among non-blacks MDRD (S/P/Bld) [Vol rate/Area] 88 mL/min/{1.73_m2} >60 [facility] Comment on above: mL/min/1.73m2 CKD-EP I Creatinine Equation (2020) Hematocrit Auto (Bld) [Volum e fraction]Ordered By: Willie Regalado on 12-01-2024 Hematocrit (Bld) [Volume fraction] 41.4 % 40-54 [facility] Hemoglobin measurementOrdere d By: Willie Regalado on 12-01-2024 Hemoglobin (Bld) [Mass/Vol] 13.3 g/dL 13.0-16.5 [facility] Immature granulocytes/100 WB C Auto (Bld)Ordered By: Willie Regalado on 12-01-2024 Immature granulocytes/100 WBC (Bld) 0.600 % 0.0-0.9 [facility] Comment on above: IG% - Immature Granu locytes (promyelocytes, myelocytes and metamyelocytes) > 1% indicates that a LEFT SHIFT is Present. Laboratory - Chemistry and C hemistry - challengeOrdered By: Willie Regalado on 12-01-2024 AST [Catalytic activity/Vol] 23 U/L <38 [facility] Comment on above: Hemolysis present, R esults could be affected. MCV (mean corpuscular volume ) determinationOrdered By: Willie Regalado on 12-01-2024 MCV (RBC) [Entitic vol] 86.6 fL 80-94 [facility] Mean corpuscular hemoglobin (MCH) determinationOrdered By: Willie Regalado on 12-01-2024 MCH (RBC) [Entitic mass] 27.8 pg 27.0-32.0 [facility] Mean corpuscular hemoglobin concentration (MCHC) determinationOrdered By: Willie Regalado on 12-01-2024 MCHC (RBC) [Mass/Vol] 32.1 g/dL 32-36 [facility] Mean platelet volume determi nationOrdered By: Willie Regalado on 12-01-2024 Platelet mean volume (Bld) [Entitic vol] 10.6 fL 6.2-12.0 [facility] Monocyte percentageOrdered B y: Willie Regalado on 12-01-2024 Monocytes/100 WBC (Bld) 9.7 % 0-10 [facility] Neutrophil percentageOrdered By: Willie Regalado on 12-01-2024 Neutrophils/100 WBC (Bld) 57.1 % 47-70 [facility] Nucleated red blood cell per centageOrdered By: Willie Regalado on 12-01-2024 Nucleated RBC/100 WBC (Bld) [Ratio] 0 % 0-5 [facility] Platelet countOrdered By: Jatin Sandra on 12-01-2024 Platelets (Bld) [#/Vol] 326 10*3/uL 150-450 [facility] Potassium measurement (mass/ volume)Ordered By: Willie Regalado on 12-01-2024 Potassium (Unsp spec) [Mass/Vol] 3.9 mmol/L 3.3-5.1 [facility] Comment on above: Hemolysis present, R esults could be affected. RBC Auto (Bld) [#/Vol]Ordere d By: Willie Regalado on 12-01-2024 RBC (Bld) [#/Vol] 4.78 10*6/uL 4.6-6.2 [facility] Serum creatinine measurement (mass/volume)Ordered By: Willie Regalado on 12-01-2024 Creatinine [Mass/Vol] 1.02 mg/dL 0.70-1.20 [facility] Serum globulin measurementOr dered By: Willie Regalado on 12-01-2024 Globulin (S) [Mass/Vol] 3.1 g/dL 2.2-4.2 [facility] Serum glucose measurement (m ass/volume)Ordered By: Willie Regalado on 12-01-2024 Glucose [Mass/Vol] 90 mg/dL 70-99 [facility] Serum or plasma IgG measurem ent (mass/volume)Ordered By: Willie Regalado on 12-01-2024 IgG [Mass/Vol] 949 mg/dL 603-1613 [facility] Comment on above: Performed at: [address] [id number] Director: Abiodun Bolton PhD, Phone: [phone] Serum or plasma alanine thomas otransferase (ALT) measurementOrdered By: Willie Regalado on 12-01-2024 ALT [Catalytic activity/Vol] 13 U/L <47 [facility] Serum or plasma albumin emerita urement (mass/volume)Ordered By: Willie Regalado on 12-01-2024 Albumin [Mass/Vol] 4.0 g/dL 3.5-5.0 [facility] Serum or plasma albumin/glob ulin mass ratioOrdered By: Willie Regalado on 12-01-2024 Albumin/Globulin [Mass ratio] 1.3 {ratio} 0.9-2.4 [facility] Serum or plasma alkaline leah sphatase measurementOrdered By: Willie Regalado on 12-01-2024 ALP [Catalytic activity/Vol] 120 U/L 40-129 [facility] Serum or plasma calcium emerita urement (mass/volume)Ordered By: Willie Regalado on 12-01-2024 Calcium [Mass/Vol] 9.5 mg/dL 7.6-11.0 [facility] Serum or plasma urea nitroge n measurement (mass/volume)Ordered By: Willie Regalado on 12-01-2024 Urea nitrogen [Mass/Vol] 7 mg/dL 4-19 [facility] Sodium levelOrdered By: Merrick Regalado on 12-01-2024 Sodium [Moles/Vol] 138 mmol/L 133-145 [facility] Total proteinOrdered By: Daniele Regalado on 12-01-2024 Protein [Mass/Vol] 7.1 g/dL 5.9-8.4 [facility] White blood cell (WBC) count Ordered By: Willie Regalado on 12-01-2024 WBC (Bld) [#/Vol] 8.5 10*3/uL 4.4-11.0 [facility] Anion gap in Serum or Plasma Ordered By: Willie Regalado on 11-05-2024 Anion gap [Moles/Vol] 11 mmol/L 5-15 [facility] Automated blood erythrocyte countOrdered By: Willie Regalado on 11-05-2024 RBC (Bld) [#/Vol] 4.67 10*6/uL Normal 4.6-6.2 [facility] Comment on above: Order Comment: 112.2 Performed By: #### L 500.2500, L100.0500 #### [facility] [address] [place], [address] Automated blood hematocrit ( percentage)Ordered By: Willie Regalado on 11-05-2024 Hematocrit (Bld) [Volume fraction] 41.0 % Normal 40-54 [facility] Comment on above: Order Comment: 112.2 Performed By: #### L 500.2500, L100.0500 #### [facility] [address] [place], [address] BUN/creatinine ratioOrdered By: Willie Regalado on 11-05-2024 Urea nitrogen/Creatinine [Mass ratio] 7.6 mg/mg Low 10-20 [facility] Basic Metabolic Profile (BMP )on 11-05-2024 BUN/CRE 7.6 RATIO Low 10-20 [facility] Comment on above: Order Comment: 112.2 Performed By: #### L 500.2500, L100.0500 #### [facility] [address] [place], [address] GAP 11 Normal 5-15 [facility] Comment on above: Order Comment: 112.2 Performed By: #### L 500.2500, L100.0500 #### [facility] [address] [place], [address] Potassium [Moles/Vol] 3.9 mmol/L Normal 3.3-5.1 [facility] Comment on above: Order Comment: 112.2 Performed By: #### L 500.2500, L100.0500 #### [facility] [address] [place], [address] CBC-Complete Blood Cnt No Di ffon 11-05-2024 RDW SD 50.1 fl High 35.1-43.9 [facility] Comment on above: Order Comment: 112.2 Performed By: #### L 500.2500, L100.0500 #### [facility] [address] [place], [address] Carbon dioxide, total [Moles /volume] in Central venous bloodOrdered By: Willie Regalado on 11-05-2024 CO2 [Moles/Vol] 24.5 mmol/L Normal 21.0-32.0 [facility] Comment on above: Order Comment: 112.2 Performed By: #### L 500.2500, L100.0500 #### [facility] [address] [place], [address] Chloride assayOrdered By: Jatin Sandra on 11-05-2024 Chloride [Moles/Vol] 107 mmol/L Normal 98-108 [facility] Comment on above: Order Comment: 112.2 Performed By: #### L 500.2500, L100.0500 #### [facility] [address] [place], [address] Erythrocyte distribution wid th ratioOrdered By: Willie Regalado on 11-05-2024 Erythrocyte distribution width (RBC) [Ratio] 15.7 % High 11.6-14.6 [facility] Comment on above: Order Comment: 112.2 Performed By: #### L 500.2500, L100.0500 #### [facility] [address] [place], [address] Erythrocyte distribution wid th standard deviationOrdered By: Willie Regalado on 11-05-2024 Erythrocyte distribution width (RBC) [Ratio] 50.1 fl High 35.1-43.9 [facility] Glomerular filtration rate ( GFR) estimation/1.73 sq m using serum, plasma, or whole bOrdered By: Willie Regalado on 11-05-2024 GFR/1.73 sq M.predicted among non-blacks MDRD (S/P/Bld) [Vol rate/Area] 79 mL/min/{1.73_m2} Normal >60 [facility] Comment on above: mL/min/1.73m2 CKD-EP I Creatinine Equation (2020) Order Comment: 112.2 Result Comment: mL/m in/1.73m2 CKD-EPI Creatinine Equation (2020) Performed By: #### L 500.2500, L100.0500 #### [facility] [address] [place], [address] Hemoglobin measurementOrdere d By: Willie Regalado on 11-05-2024 Hemoglobin (Bld) [Mass/Vol] 12.9 g/dL Low 13.0-16.5 [facility] Comment on above: Order Comment: 112.2 Performed By: #### L 500.2500, L100.0500 #### [facility] [address] [place], [address] MCV (mean corpuscular volume ) determinationOrdered By: Willie Regalado on 11-05-2024 MCV (RBC) [Entitic vol] 87.8 fL Normal 80-94 [facility] Comment on above: Order Comment: 112.2 Performed By: #### L 500.2500, L100.0500 #### [facility] [address] [place], [address] Mean corpuscular hemoglobin (MCH) determinationOrdered By: Willie Regalado on 11-05-2024 MCH (RBC) [Entitic mass] 27.6 pg Normal 27.0-32.0 [facility] Comment on above: Order Comment: 112.2 Performed By: #### L 500.2500, L100.0500 #### [facility] [address] [place], [address] Mean corpuscular hemoglobin concentration (MCHC) determinationOrdered By: Willie Regalado on 11-05-2024 MCHC (RBC) [Mass/Vol] 31.5 g/dL Low 32-36 [facility] Comment on above: Order Comment: 112.2 Performed By: #### L 500.2500, L100.0500 #### [facility] [address] [place], [address] Mean platelet volume determi nationOrdered By: Willie Regalado on 11-05-2024 Platelet mean volume (Bld) [Entitic vol] 10.8 fL Normal 6.2-12.0 [facility] Comment on above: Order Comment: 112.2 Performed By: #### L 500.2500, L100.0500 #### [facility] [address] [place], [address] Platelet countOrdered By: Jatin Sandra on 11-05-2024 Platelets (Bld) [#/Vol] 306 10*3/uL Normal 150-450 [facility] Comment on above: Order Comment: 112.2 Performed By: #### L 500.2500, L100.0500 #### [facility] [address] [place], [address] Potassium measurement (mass/ volume)Ordered By: Willie Regalado on 11-05-2024 Potassium (Unsp spec) [Mass/Vol] 3.9 mmol/L 3.3-5.1 [facility] Serum creatinine measurement (mass/volume)Ordered By: Willie Regalado on 11-05-2024 Creatinine [Mass/Vol] 1.12 mg/dL Normal 0.70-1.20 [facility] Comment on above: Order Comment: 112.2 Performed By: #### L 500.2500, L100.0500 #### [facility] [address] [place], [address] Serum glucose measurement (m ass/volume)Ordered By: Willie Regalado on 11-05-2024 Glucose [Mass/Vol] 105 mg/dL High 70-99 [facility] Comment on above: Order Comment: 112.2 Performed By: #### L 500.2500, L100.0500 #### [facility] [address] [place], [address] Serum or plasma calcium emerita urement (mass/volume)Ordered By: Willie Regalado on 11-05-2024 Calcium [Mass/Vol] 9.1 mg/dL Normal 7.6-11.0 [facility] Comment on above: Order Comment: 112.2 Performed By: #### L 500.2500, L100.0500 #### [facility] [address] [place], [address] Serum or plasma urea nitroge n measurement (mass/volume)Ordered By: Willie Regalado on 11-05-2024 Urea nitrogen [Mass/Vol] 9 mg/dL Normal 4-19 [facility] Comment on above: Order Comment: 112.2 Performed By: #### L 500.2500, L100.0500 #### [facility] [address] [place], [address] Sodium levelOrdered By: Merrick Regalado on 11-05-2024 Sodium [Moles/Vol] 142 mmol/L Normal 133-145 [facility] Comment on above: Order Comment: 112.2 Performed By: #### L 500.2500, L100.0500 #### [facility] [address] [place], [address] White blood cell (WBC) count Ordered By: Willie Regalado on 11-05-2024 WBC (Bld) [#/Vol] 7.4 10*3/uL Normal 4.4-11.0 [facility] Comment on above: Order Comment: 112.2 Performed By: #### L 500.2500, L100.0500 #### [facility] [address] [place], [address] Basic Metabolic Profile (BMP )on 09-02-2024 BUN/CRE 9.3 RATIO Low 10-20 [facility] Comment on above: Order Comment: 112.2 Performed By: #### L 100.0500, L500.2500 #### [facility] [address] [place], [address] CA,Total 9.0 mg/dL Normal 8.5-10.1 [facility] Comment on above: Order Comment: 112.2 Performed By: #### L 100.0500, L500.2500 #### [facility] [address] [place], [address] Chloride [Moles/Vol] 105 mmol/L Normal 98-107 [facility] Comment on above: Order Comment: 112.2 Performed By: #### L 100.0500, L500.2500 #### [facility] [address] [place], [address] CO2 [Moles/Vol] 27.0 mmol/L Normal 21.0-32.0 [facility] Comment on above: Order Comment: 112.2 Performed By: #### L 100.0500, L500.2500 #### [facility] [address] [place], [address] Creatinine [Mass/Vol] 1.07 mg/dL Normal 0.70-1.30 [facility] Comment on above: Order Comment: 112.2 Result Comment: The validity of the calculated GFR GFRAA in patients over 70 years has not been determined. Clinical correlation is essential. Performed By: #### L 100.0500, L500.2500 #### [facility] [address] [place], [address] EST GFR - AA 93 mL/min Normal >60 [facility] Comment on above: Order Comment: 112.2 Result Comment: Afri can Somali GFR Calc Performed By: #### L 100.0500, L500.2500 #### [facility] [address] [place], [address] GAP 8 Normal 5-15 [facility] Comment on above: Order Comment: 112.2 Performed By: #### L 100.0500, L500.2500 #### [facility] [address] [place], [address] GFR/1.73 sq M.predicted among non-blacks MDRD (S/P/Bld) [Vol rate/Area] 77 mL/min/{1.73_m2} Normal >60 [facility] Comment on above: Order Comment: 112.2 Result Comment: Non- GFR Calc Performed By: #### L 100.0500, L500.2500 #### [facility] [address] [place], [address] Glucose [Mass/Vol] 95 mg/dL Normal 74-106 [facility] Comment on above: Order Comment: 112.2 Performed By: #### L 100.0500, L500.2500 #### [facility] [address] [place], [address] Potassium [Moles/Vol] 3.8 mmol/L Normal 3.5-5.1 [facility] Comment on above: Order Comment: 112.2 Performed By: #### L 100.0500, L500.2500 #### [facility] [address] [place], [address] Sodium [Moles/Vol] 140 mmol/L Normal 136-145 [facility] Comment on above: Order Comment: 112.2 Performed By: #### L 100.0500, L500.2500 #### [facility] [address] [place], [address] Urea nitrogen [Mass/Vol] 10 mg/dL Normal 7-18 [facility] Comment on above: Order Comment: 112.2 Performed By: #### L 100.0500, L500.2500 #### [facility] [address] [place], [address] Blood urea nitrogen (BUN)/cr eatinine ratioOrdered By: Willie Regalado on 09-02-2024 Urea nitrogen/Creatinine [Mass ratio] 9.3 mg/mg Low 10-20 [facility] CBC-Complete Blood Cnt No Di ffon 09-02-2024 Erythrocyte distribution width (RBC) [Ratio] 14.6 % Normal 11.6-14.6 [facility] Comment on above: Order Comment: 112.2 Performed By: #### L 100.0500, L500.2500 #### [facility] [address] [place], [address] Hematocrit (Bld) [Volume fraction] 41.9 % Normal 40-54 [facility] Comment on above: Order Comment: 112.2 Performed By: #### L 100.0500, L500.2500 #### [facility] [address] [place], [address] Hemoglobin (Bld) [Mass/Vol] 13.3 g/dL Normal 13.0-16.5 [facility] Comment on above: Order Comment: 112.2 Performed By: #### L 100.0500, L500.2500 #### [facility] [address] [place], [address] MCH (RBC) [Entitic mass] 27.9 pg Normal 27.0-32.0 [facility] Comment on above: Order Comment: 112.2 Performed By: #### L 100.0500, L500.2500 #### [facility] [address] [place], [address] MCHC (RBC) [Mass/Vol] 31.7 g/dL Low 32-36 [facility] Comment on above: Order Comment: 112.2 Performed By: #### L 100.0500, L500.2500 #### [facility] [address] [place], [address] MCV (RBC) [Entitic vol] 88.0 fL Normal 80-94 [facility] Comment on above: Order Comment: 112.2 Performed By: #### L 100.0500, L500.2500 #### [facility] [address] [place], [address] Platelet mean volume (Bld) [Entitic vol] 10.3 fL Normal 6.2-12.0 [facility] Comment on above: Order Comment: 112.2 Performed By: #### L 100.0500, L500.2500 #### [facility] [address] [place], [address] Platelets (Bld) [#/Vol] 358 10*3/uL Normal 150-450 [facility] Comment on above: Order Comment: 112.2 Performed By: #### L 100.0500, L500.2500 #### [facility] [address] [place], [address] RBC (Bld) [#/Vol] 4.76 10*6/uL Normal 4.6-6.2 [facility] Comment on above: Order Comment: 112.2 Performed By: #### L 100.0500, L500.2500 #### [facility] [address] [place], [address] RDW SD 47.1 fl High 35.1-43.9 [facility] Comment on above: Order Comment: 112.2 Performed By: #### L 100.0500, L500.2500 #### [facility] [address] [place], [address] WBC (Bld) [#/Vol] 7.3 10*3/uL Normal 4.4-11.0 [facility] Comment on above: Order Comment: 112.2 Performed By: #### L 100.0500, L500.2500 #### [facility] [address] [place], [address] Carbon dioxide measurementOr dered By: Willie Regalado on 09-02-2024 CO2 [Moles/Vol] 27.0 mmol/L 21.0-32.0 [facility] Chloride measurementOrdered By: Willie Regalado on 09-02-2024 Chloride [Moles/Vol] 105 mmol/L 98-107 [facility] Erythrocyte distribution wid th ratioOrdered By: Willie Regalado on 09-02-2024 Erythrocyte distribution width (RBC) [Ratio] 14.6 % 11.6-14.6 [facility] Erythrocyte distribution wid th standard deviationOrdered By: Willie Regalado on 09-02-2024 Erythrocyte distribution width (RBC) [Entitic vol] 47.1 fL High 35.1-43.9 [facility] Erythrocyte distribution width (RBC) [Ratio] 47.1 fl High 35.1-43.9 [facility] Estimated glomerular filtrat ion rate (GFR) AmericanOrdered By: Willie Regalado on 09-02-2024 Estimated GFR (MDRD) Amer 93 mL/min >60 [facility] Comment on above: GFR Calc Glomerular filtration rate ( GFR) estimationOrdered By: Willie Regalado on 09-02-2024 Estimated GFR (MDRD) Non-Af Amer 77 mL/min >60 [facility] Comment on above: Non- GFR Calc GFR/1.73 sq M.predicted among non-blacks MDRD (S/P/Bld) [Vol rate/Area] 77 mL/min/{1.73_m2} >60 [facility] Comment on above: Non- GFR Calc Glucose measurementOrdered B y: Willie Regalado on 09-02-2024 Glucose [Mass/Vol] 95 mg/dL 74-106 [facility] Hematocrit Auto (Bld) [Volum e fraction]Ordered By: Willie Regalado on 09-02-2024 Hematocrit (Bld) [Volume fraction] 41.9 % 40-54 [facility] Hemoglobin measurementOrdere d By: Willie Regalado on 09-02-2024 Hemoglobin (Bld) [Mass/Vol] 13.3 g/dL 13.0-16.5 [facility] MCV (mean corpuscular volume ) determinationOrdered By: Willie Regalado on 09-02-2024 MCV (RBC) [Entitic vol] 88.0 fL 80-94 [facility] Mean corpuscular hemoglobin (MCH) determinationOrdered By: Willie Regalado on 09-02-2024 MCH (RBC) [Entitic mass] 27.9 pg 27.0-32.0 [facility] Mean corpuscular hemoglobin concentration (MCHC) determinationOrdered By: Willie Regalado on 09-02-2024 MCHC (RBC) [Mass/Vol] 31.7 g/dL Low 32-36 [facility] Mean platelet volume determi nationOrdered By: Willie Regalado on 09-02-2024 Platelet mean volume (Bld) [Entitic vol] 10.3 fL 6.2-12.0 [facility] Platelet countOrdered By: Jatin Sandra on 09-02-2024 Platelets (Bld) [#/Vol] 358 10*3/uL 150-450 [facility] Potassium measurementOrdered By: Willie Regalado on 09-02-2024 Potassium [Moles/Vol] 3.8 mmol/L 3.5-5.1 [facility] RBC Auto (Bld) [#/Vol]Ordere d By: Willie Regalado on 09-02-2024 RBC (Bld) [#/Vol] 4.76 10*6/uL 4.6-6.2 [facility] Serum anion gap measurementO rdered By: Willie Regalado on 09-02-2024 Anion gap [Moles/Vol] 8 mmol/L 5-15 [facility] Serum or plasma calcium emerita urement (mass/volume)Ordered By: Willie Regalado on 09-02-2024 Calcium [Mass/Vol] 9.0 mg/dL 8.5-10.1 [facility] Serum or plasma creatinine m easurement (mass/volume)Ordered By: Willie Regalado on 09-02-2024 Creatinine [Mass/Vol] 1.07 mg/dL 0.70-1.30 [facility] Comment on above: The validity of the calculated GFR & GFRAA in patients over 70 years has not been determined. Clinical correlation is essential. Serum or plasma urea nitroge n measurement (mass/volume)Ordered By: Willie Regalado on 09-02-2024 Urea nitrogen [Mass/Vol] 10 mg/dL -18 [facility] Sodium levelOrdered By: Merrick Regalado on 09-02-2024 Sodium [Moles/Vol] 140 mmol/L 136-145 [facility] White blood cell (WBC) count Ordered By: Willie Regalado on 09-02-2024 WBC (Bld) [#/Vol] 7.3 10*3/uL 4.4-11.0 [facility] Automated blood erythrocyte countOrdered By: Willie Regalado on 08-07-2024 RBC (Bld) [#/Vol] 4.96 10*6/uL Normal 4.6-6.2 [facility] Comment on above: Order Comment: 112.2 Performed By: #### L 100.0500, L500.2500 #### [facility] [address] [place], [address] Automated blood hematocrit ( percentage)Ordered By: Willie Regalado on 08-07-2024 Hematocrit (Bld) [Volume fraction] 43.2 % Normal 40-54 [facility] Comment on above: Order Comment: 112.2 Performed By: #### L 100.0500, L500.2500 #### [facility] [address] [place], [address] Basic Metabolic Profile (BMP )on 08-07-2024 BUN/CRE 8.8 RATIO Low 10-20 [facility] Comment on above: Order Comment: 112.2 Performed By: #### L 100.0500, L500.2500 #### [facility] [address] [place], [address] CA,Total 9.5 mg/dL Normal 8.5-10.1 [facility] Comment on above: Order Comment: 112.2 Performed By: #### L 100.0500, L500.2500 #### [facility] [address] [place], [address] EST GFR - AA 87 mL/min Normal >60 [facility] Comment on above: Order Comment: 112.2 Result Comment: Afri can Somali GFR Calc Performed By: #### L 100.0500, L500.2500 #### [facility] [address] [place], [address] GAP 6 Normal 5-15 [facility] Comment on above: Order Comment: 112.2 Performed By: #### L 100.0500, L500.2500 #### [facility] [address] [place], [address] GFR/1.73 sq M.predicted among non-blacks MDRD (S/P/Bld) [Vol rate/Area] 72 mL/min/{1.73_m2} Normal >60 [facility] Comment on above: Order Comment: 112.2 Result Comment: Non- GFR Calc Performed By: #### L 100.0500, L500.2500 #### [facility] [address] [place], [address] Blood urea nitrogen (BUN)/cr eatinine ratioOrdered By: Willie Regalado on 08-07-2024 Urea nitrogen/Creatinine [Mass ratio] 8.8 mg/mg Low 10-20 [facility] CBC-Complete Blood Cnt No Di ffon 08-07-2024 RDW SD 46.7 fl High 35.1-43.9 [facility] Comment on above: Order Comment: 112.2 Performed By: #### L 100.0500, L500.2500 #### [facility] [address] [place], [address] Carbon dioxide measurementOr dered By: Willie Regalado on 08-07-2024 CO2 [Moles/Vol] 26.0 mmol/L Normal 21.0-32.0 [facility] Comment on above: Order Comment: 112.2 Performed By: #### L 100.0500, L500.2500 #### [facility] [address] [place], [address] Chloride measurementOrdered By: Willie Regalado on 08-07-2024 Chloride [Moles/Vol] 106 mmol/L Normal 98-107 [facility] Comment on above: Order Comment: 112.2 Performed By: #### L 100.0500, L500.2500 #### [facility] [address] [place], [address] Erythrocyte distribution wid th ratioOrdered By: Willie Regalado on 08-07-2024 Erythrocyte distribution width (RBC) [Ratio] 14.6 % Normal 11.6-14.6 [facility] Comment on above: Order Comment: 112.2 Performed By: #### L 100.0500, L500.2500 #### [facility] [address] [facility] [phone] Erythrocyte distribution wid th standard deviationOrdered By: Willie Regalado on 08-07-2024 Erythrocyte distribution width (RBC) [Entitic vol] 46.7 fL High 35.1-43.9 [facility] Estimated glomerular filtrat ion rate (GFR) AmericanOrdered By: Willie Regalado on 08-07-2024 Estimated GFR (MDRD) Amer 87 mL/min >60 [facility] Comment on above: GFR Calc Glomerular filtration rate ( GFR) estimationOrdered By: Willie Regalado on 08-07-2024 Estimated GFR (MDRD) Non-Af Amer 72 mL/min >60 [facility] Comment on above: Non- GFR Calc Glucose measurementOrdered B y: Willie Regalado on 08-07-2024 Glucose [Mass/Vol] 92 mg/dL Normal 74-106 [facility] Comment on above: Order Comment: 112.2 Performed By: #### L 100.0500, L500.2500 #### [facility] [address] [facility] [phone] Hemoglobin measurementOrdere d By: Willie Regalado on 08-07-2024 Hemoglobin (Bld) [Mass/Vol] 13.5 g/dL Normal 13.0-16.5 [facility] Comment on above: Order Comment: 112.2 Performed By: #### L 100.0500, L500.2500 #### [facility] [address] [place], [address] MCV (mean corpuscular volume ) determinationOrdered By: Willie Regalado on 08-07-2024 MCV (RBC) [Entitic vol] 87.1 fL Normal 80-94 [facility] Comment on above: Order Comment: 112.2 Performed By: #### L 100.0500, L500.2500 #### [facility] [address] [place], [address] Mean corpuscular hemoglobin (MCH) determinationOrdered By: Willie Regalado on 08-07-2024 MCH (RBC) [Entitic mass] 27.2 pg Normal 27.0-32.0 [facility] Comment on above: Order Comment: 112.2 Performed By: #### L 100.0500, L500.2500 #### [facility] [address] [place], [address] Mean corpuscular hemoglobin concentration (MCHC) determinationOrdered By: Willie Regalado on 08-07-2024 MCHC (RBC) [Mass/Vol] 31.3 g/dL Low 32-36 [facility] Comment on above: Order Comment: 112.2 Performed By: #### L 100.0500, L500.2500 #### [facility] [address] [place], [address] Mean platelet volume determi nationOrdered By: Willie Regalado on 08-07-2024 Platelet mean volume (Bld) [Entitic vol] 10.5 fL Normal 6.2-12.0 [facility] Comment on above: Order Comment: 112.2 Performed By: #### L 100.0500, L500.2500 #### [facility] [address] [place], [address] Platelet countOrdered By: Jatin Sandra on 08-07-2024 Platelets (Bld) [#/Vol] 328 10*3/uL Normal 150-450 [facility] Comment on above: Order Comment: 112.2 Performed By: #### L 100.0500, L500.2500 #### [facility] [address] [place], [address] Potassium measurementOrdered By: Willie Regalado on 08-07-2024 Potassium [Moles/Vol] 3.8 mmol/L Normal 3.5-5.1 [facility] Comment on above: Order Comment: 112.2 Performed By: #### L 100.0500, L500.2500 #### [facility] [address] [place], [address] Serum anion gap measurementO rdered By: Willie Regalado on 08-07-2024 Anion gap [Moles/Vol] 6 mmol/L 5-15 [facility] Serum or plasma calcium emerita urement (mass/volume)Ordered By: Willie Regalado on 08-07-2024 Calcium [Mass/Vol] 9.5 mg/dL 8.5-10.1 [facility] Serum or plasma creatinine m easurement (mass/volume)Ordered By: Willie Regalado on 08-07-2024 Creatinine [Mass/Vol] 1.13 mg/dL Normal 0.70-1.30 [facility] Comment on above: The validity of the calculated GFR & GFRAA in patients over 70 years has not been determined. Clinical correlation is essential. Order Comment: 112.2 Result Comment: The validity of the calculated GFR GFRAA in patients over 70 years has not been determined. Clinical correlation is essential. Performed By: #### L 100.0500, L500.2500 #### [facility] [address] [place], [address] Serum or plasma urea nitroge n measurement (mass/volume)Ordered By: Willie Regalado on 08-07-2024 Urea nitrogen [Mass/Vol] 10 mg/dL Normal 7-18 [facility] Comment on above: Order Comment: 112.2 Performed By: #### L 100.0500, L500.2500 #### [facility] [address] [place], [address] Sodium levelOrdered By: Merrick Regalado on 08-07-2024 Sodium [Moles/Vol] 138 mmol/L Normal 136-145 [facility] Comment on above: Order Comment: 112.2 Performed By: #### L 100.0500, L500.2500 #### [facility] [address] [place], [address] White blood cell (WBC) count Ordered By: Willie Regalado on 08-07-2024 WBC (Bld) [#/Vol] 5.8 10*3/uL Normal 4.4-11.0 [facility] Comment on above: Order Comment: 112.2 Performed By: #### L 100.0500, L500.2500 #### [facility] [address] [place], [address] Hemoglobin A1con 07-28-2024 HbA1c (Bld) [Mass fraction] 5.8 % High 3.8-5.6 [facility] Comment on above: Order Comment: 112.2 Result Comment: Norm al < 5.7 % Prediabetic 5.7 - 6.4 % Diabetic >or= 6.5 % Please note range changes. Performed By: #### L 500.2500, L100.0500 #### [facility] [address] [place], [address] Hemoglobin A1c percentageOrd ered By: Willie Regalado on 07-28-2024 HbA1c (Bld) [Mass fraction] 5.8 % High 3.8-5.6 [facility] Comment on above: Normal < 5.7 % Predi abetic 5.7 - 6.4 % Diabetic >or= 6.5 % Please note range changes. Basic Metabolic Profile (BMP )on 07-07-2024 BUN/CRE 11.4 RATIO Normal 10-20 [facility] Comment on above: Order Comment: 112.2 Performed By: #### L 100.0500, L500.2500 #### [facility] [address] [place], [address] CA,Total 9.0 mg/dL Normal 8.5-10.1 [facility] Comment on above: Order Comment: 112.2 Performed By: #### L 100.0500, L500.2500 #### [facility] [address] [place], [address] Chloride [Moles/Vol] 107 mmol/L Normal 98-107 [facility] Comment on above: Order Comment: 112.2 Performed By: #### L 100.0500, L500.2500 #### [facility] [address] [place], [address] CO2 [Moles/Vol] 27.0 mmol/L Normal 21.0-32.0 [facility] Comment on above: Order Comment: 112.2 Performed By: #### L 100.0500, L500.2500 #### [facility] [address] [place], [address] Creatinine [Mass/Vol] 0.96 mg/dL Normal 0.70-1.30 [facility] Comment on above: Order Comment: 112.2 Result Comment: The validity of the calculated GFR GFRAA in patients over 70 years has not been determined. Clinical correlation is essential. Performed By: #### L 100.0500, L500.2500 #### [facility] [address] [place], [address] EST GFR - AA 105 mL/min Normal >60 [facility] Comment on above: Order Comment: 112.2 Result Comment: Afri can Somali GFR Calc Performed By: #### L 100.0500, L500.2500 #### [facility] [address] [place], [address] GAP 5 Normal 5-15 [facility] Comment on above: Order Comment: 112.2 Performed By: #### L 100.0500, L500.2500 #### [facility] [address] [place], [address] GFR/1.73 sq M.predicted among non-blacks MDRD (S/P/Bld) [Vol rate/Area] 87 mL/min/{1.73_m2} Normal >60 [facility] Comment on above: Order Comment: 112.2 Result Comment: Non- GFR Calc Performed By: #### L 100.0500, L500.2500 #### [facility] [address] [place], [address] Glucose [Mass/Vol] 109 mg/dL High 74-106 [facility] Comment on above: Order Comment: 112.2 Result Comment: Fast ing Glucose result from 100 to 125 mg/dL suggests IMPAIRED HOMEOSTASIS per A.D.A. criteria. Performed By: #### L 100.0500, L500.2500 #### [facility] [address] [place], [address] Potassium [Moles/Vol] 3.5 mmol/L Normal 3.5-5.1 [facility] Comment on above: Order Comment: 112.2 Performed By: #### L 100.0500, L500.2500 #### [facility] [address] [place], [address] Sodium [Moles/Vol] 139 mmol/L Normal 136-145 [facility] Comment on above: Order Comment: 112.2 Performed By: #### L 100.0500, L500.2500 #### [facility] [address] [place], [address] Urea nitrogen [Mass/Vol] 11 mg/dL Normal 7-18 [facility] Comment on above: Order Comment: 112.2 Performed By: #### L 100.0500, L500.2500 #### [facility] [address] [place], [address] Blood urea nitrogen (BUN)/cr eatinine ratioOrdered By: Willie Regalado on 07-07-2024 Urea nitrogen/Creatinine [Mass ratio] 11.4 mg/mg 10-20 [facility] CBC-Complete Blood Cnt No Di ffon 07-07-2024 Erythrocyte distribution width (RBC) [Ratio] 14.7 % High 11.6-14.6 [facility] Comment on above: Order Comment: 112.2 Performed By: #### L 100.0500, L500.2500 #### [facility] [address] [place], [address] Hematocrit (Bld) [Volume fraction] 43.3 % Normal 40-54 [facility] Comment on above: Order Comment: 112.2 Performed By: #### L 100.0500, L500.2500 #### [facility] [address] [place], [address] Hemoglobin (Bld) [Mass/Vol] 13.5 g/dL Normal 13.0-16.5 [facility] Comment on above: Order Comment: 112.2 Performed By: #### L 100.0500, L500.2500 #### [facility] [address] [place], [address] MCH (RBC) [Entitic mass] 27.6 pg Normal 27.0-32.0 [facility] Comment on above: Order Comment: 112.2 Performed By: #### L 100.0500, L500.2500 #### [facility] [address] [place], [address] MCHC (RBC) [Mass/Vol] 31.2 g/dL Low 32-36 [facility] Comment on above: Order Comment: 112.2 Performed By: #### L 100.0500, L500.2500 #### [facility] [address] [place], [address] MCV (RBC) [Entitic vol] 88.5 fL Normal 80-94 [facility] Comment on above: Order Comment: 112.2 Performed By: #### L 100.0500, L500.2500 #### [facility] [address] [place], [address] Platelet mean volume (Bld) [Entitic vol] 10.2 fL Normal 6.2-12.0 [facility] Comment on above: Order Comment: 112.2 Performed By: #### L 100.0500, L500.2500 #### [facility] [address] [place], [address] Platelets (Bld) [#/Vol] 320 10*3/uL Normal 150-450 [facility] Comment on above: Order Comment: 112.2 Performed By: #### L 100.0500, L500.2500 #### [facility] [address] [place], [address] RBC (Bld) [#/Vol] 4.89 10*6/uL Normal 4.6-6.2 [facility] Comment on above: Order Comment: 112.2 Performed By: #### L 100.0500, L500.2500 #### [facility] [address] [place], [address] RDW SD 47.8 fl High 35.1-43.9 [facility] Comment on above: Order Comment: 112.2 Performed By: #### L 100.0500, L500.2500 #### [facility] [address] [place], [address] WBC (Bld) [#/Vol] 7.7 10*3/uL Normal 4.4-11.0 [facility] Comment on above: Order Comment: 112.2 Performed By: #### L 100.0500, L500.2500 #### [facility] [address] [place], [address] Carbon dioxide measurementOr dered By: Willie Regalado on 07-07-2024 CO2 [Moles/Vol] 27.0 mmol/L 21.0-32.0 [facility] Chloride measurementOrdered By: Willie Regalado on 07-07-2024 Chloride [Moles/Vol] 107 mmol/L 98-107 [facility] Erythrocyte distribution wid th ratioOrdered By: Willie Regalado on 07-07-2024 Erythrocyte distribution width (RBC) [Ratio] 14.7 % High 11.6-14.6 [facility] Erythrocyte distribution wid th standard deviationOrdered By: Willie Regalado on 07-07-2024 Erythrocyte distribution width (RBC) [Entitic vol] 47.8 fL High 35.1-43.9 [facility] Estimated glomerular filtrat ion rate (GFR) AmericanOrdered By: Willie Regalado on 07-07-2024 Estimated GFR (MDRD) Amer 105 mL/min >60 [facility] Comment on above: GFR Calc Glomerular filtration rate ( GFR) estimationOrdered By: Willie Regalado on 07-07-2024 Estimated GFR (MDRD) Non-Af Amer 87 mL/min >60 [facility] Comment on above: Non- GFR Calc Glucose measurementOrdered B y: Willie Regalado on 07-07-2024 Glucose [Mass/Vol] 109 mg/dL High 74-106 [facility] Comment on above: Fasting Glucose resu lt from 100 to 125 mg/dL suggests IMPAIRED HOMEOSTASIS per A.D.A. criteria. Hematocrit Auto (Bld) [Volum e fraction]Ordered By: Willie Regalado on 07-07-2024 Hematocrit (Bld) [Volume fraction] 43.3 % 40-54 [facility] Hemoglobin measurementOrdere d By: Willie Regalado on 07-07-2024 Hemoglobin (Bld) [Mass/Vol] 13.5 g/dL 13.0-16.5 [facility] MCV (mean corpuscular volume ) determinationOrdered By: Willie Regalado on 07-07-2024 MCV (RBC) [Entitic vol] 88.5 fL 80-94 [facility] Mean corpuscular hemoglobin (MCH) determinationOrdered By: Willie Regalado on 07-07-2024 MCH (RBC) [Entitic mass] 27.6 pg 27.0-32.0 [facility] Mean corpuscular hemoglobin concentration (MCHC) determinationOrdered By: Willie Regalado on 07-07-2024 MCHC (RBC) [Mass/Vol] 31.2 g/dL Low 32-36 [facility] Mean platelet volume determi nationOrdered By: Willie Regalado on 07-07-2024 Platelet mean volume (Bld) [Entitic vol] 10.2 fL 6.2-12.0 [facility] Platelet countOrdered By: Jatin Sandra on 07-07-2024 Platelets (Bld) [#/Vol] 320 10*3/uL 150-450 [facility] Potassium measurementOrdered By: Willie Regalado on 07-07-2024 Potassium [Moles/Vol] 3.5 mmol/L 3.5-5.1 [facility] RBC Auto (Bld) [#/Vol]Ordere d By: Willie Regalado on 07-07-2024 RBC (Bld) [#/Vol] 4.89 10*6/uL 4.6-6.2 [facility] Serum anion gap measurementO rdered By: Willie Regalado on 07-07-2024 Anion gap [Moles/Vol] 5 mmol/L 5-15 [facility] Serum or plasma calcium emerita urement (mass/volume)Ordered By: Willie Regalado on 07-07-2024 Calcium [Mass/Vol] 9.0 mg/dL 8.5-10.1 [facility] Serum or plasma creatinine m easurement (mass/volume)Ordered By: Willie Regalado on 07-07-2024 Creatinine [Mass/Vol] 0.96 mg/dL 0.70-1.30 [facility] Comment on above: The validity of the calculated GFR & GFRAA in patients over 70 years has not been determined. Clinical correlation is essential. Serum or plasma urea nitroge n measurement (mass/volume)Ordered By: Willie Regalado on 07-07-2024 Urea nitrogen [Mass/Vol] 11 mg/dL 7-18 [facility] Sodium levelOrdered By: Merrick Regalado on 07-07-2024 Sodium [Moles/Vol] 139 mmol/L 136-145 [facility] White blood cell (WBC) count Ordered By: Willie Regalado on 07-07-2024 WBC (Bld) [#/Vol] 7.7 10*3/uL 4.4-11.0 [facility] Absolute neutrophil countOrd ered By: Willie Regalado on 06-09-2024 Neutrophils (Bld) [#/Vol] 3.3 10*3/uL 2.0-7.7 [facility] Basophil percentageOrdered B y: Willie Regalado on 06-09-2024 Basophils/100 WBC (Bld) 0.7 % 0-1 [facility] CBC W/Diff, Automatedon 11-2 5-2023 Absolute Lymph 2.49 X10 3/uL Normal 0.83-4.51 [facility] Comment on above: Order Comment: 112.2 Performed By: #### L 500.2500, L100.0500 #### [facility] [address] [place], [address] Absolute Neut 3.3 X10 3/uL Normal 2.0-7.7 [facility] Comment on above: Order Comment: 112.2 Performed By: #### L 500.2500, L100.0500 #### [facility] [address] [place], [address] Basophils/100 WBC (Bld) 0.7 % Normal 0-1 [facility] Comment on above: Order Comment: 112.2 Performed By: #### L 500.2500, L100.0500 #### [facility] [address] [place], [address] Eosinophils/100 WBC (Bld) 7.7 % High 0-5 [facility] Comment on above: Order Comment: 112.2 Performed By: #### L 500.2500, L100.0500 #### [facility] [address] [place], [address] Erythrocyte distribution width (RBC) [Ratio] 14.5 % Normal 11.6-14.6 [facility] Comment on above: Order Comment: 112.2 Performed By: #### L 500.2500, L100.0500 #### [facility] [address] [place], [address] Hematocrit (Bld) [Volume fraction] 45.4 % Normal 40-54 [facility] Comment on above: Order Comment: 112.2 Performed By: #### L 500.2500, L100.0500 #### [facility] [address] [place], [address] Hemoglobin (Bld) [Mass/Vol] 14.2 g/dL Normal 13.0-16.5 [facility] Comment on above: Order Comment: 112.2 Performed By: #### L 500.2500, L100.0500 #### [facility] [address] [place], [address] IG% 0.700 Normal 0.0-0.9 [facility] Comment on above: Order Comment: 112.2 Result Comment: IG% - Immature Granulocytes (promyelocytes, myelocytes and metamyelocytes) > 1% indicates that a LEFT SHIFT is Present. Performed By: #### L 500.2500, L100.0500 #### [facility] [address] [place], [address] Lymphocytes/100 WBC (Bld) 35.0 % Normal 19-41 [facility] Comment on above: Order Comment: 112.2 Performed By: #### L 500.2500, L100.0500 #### [facility] [address] [place], [address] MCH (RBC) [Entitic mass] 27.4 pg Normal 27.0-32.0 [facility] Comment on above: Order Comment: 112.2 Performed By: #### L 500.2500, L100.0500 #### [facility] [address] [place], [address] MCHC (RBC) [Mass/Vol] 31.3 g/dL Low 32-36 [facility] Comment on above: Order Comment: 112.2 Performed By: #### L 500.2500, L100.0500 #### [facility] [address] [place], [address] MCV (RBC) [Entitic vol] 87.5 fL Normal 80-94 [facility] Comment on above: Order Comment: 112.2 Performed By: #### L 500.2500, L100.0500 #### [facility] [address] [place], [address] Monocytes/100 WBC (Bld) 10.0 % Normal 0-10 [facility] Comment on above: Order Comment: 112.2 Performed By: #### L 500.2500, L100.0500 #### [facility] [address] [place], [address] Neutrophils/100 WBC (Bld) 45.9 % Low 47-70 [facility] Comment on above: Order Comment: 112.2 Performed By: #### L 500.2500, L100.0500 #### [facility] [address] [place], [address] Nucleated RBC (Bld) [#/Vol] 0 10*3/uL Normal 0-5 [facility] Comment on above: Order Comment: 112.2 Performed By: #### L 500.2500, L100.0500 #### [facility] [address] [place], [address] Platelet mean volume (Bld) [Entitic vol] 10.4 fL Normal 6.2-12.0 [facility] Comment on above: Order Comment: 112.2 Performed By: #### L 500.2500, L100.0500 #### [facility] [address] [place], [address] Platelets (Bld) [#/Vol] 335 10*3/uL Normal 150-450 [facility] Comment on above: Order Comment: 112.2 Performed By: #### L 500.2500, L100.0500 #### [facility] [address] [place], [address] RBC (Bld) [#/Vol] 5.19 10*6/uL Normal 4.6-6.2 [facility] Comment on above: Order Comment: 112.2 Performed By: #### L 500.2500, L100.0500 #### [facility] [address] [place], [address] RDW SD 46.3 fl High 35.1-43.9 [facility] Comment on above: Order Comment: 112.2 Performed By: #### L 500.2500, L100.0500 #### [facility] [address] [place], [address] WBC (Bld) [#/Vol] 7.1 10*3/uL Normal 4.4-11.0 [facility] Comment on above: Order Comment: 112.2 Performed By: #### L 500.2500, L100.0500 #### [facility] [address] [place], [address] Eosinophil percentageOrdered By: Willie Regalado on 06-09-2024 Eosinophils/100 WBC (Bld) 7.7 % High 0-5 [facility] Erythrocyte distribution wid th ratioOrdered By: Willie Regalado on 06-09-2024 Erythrocyte distribution width (RBC) [Ratio] 14.5 % 11.6-14.6 [facility] Erythrocyte distribution wid th standard deviationOrdered By: Willie Regalado on 06-09-2024 Erythrocyte distribution width (RBC) [Entitic vol] 46.3 fL High 35.1-43.9 [facility] Hematocrit Auto (Bld) [Volum e fraction]Ordered By: Willie Regalado on 06-09-2024 Hematocrit (Bld) [Volume fraction] 45.4 % 40-54 [facility] Hemoglobin measurementOrdere d By: Willie Regalado on 06-09-2024 Hemoglobin (Bld) [Mass/Vol] 14.2 g/dL 13.0-16.5 [facility] Immature granulocytes/100 WB C Auto (Bld)Ordered By: Willie Regalado on 06-09-2024 Immature granulocytes/100 WBC (Bld) 0.700 % 0.0-0.9 [facility] Comment on above: IG% - Immature Granu locytes (promyelocytes, myelocytes and metamyelocytes) > 1% indicates that a LEFT SHIFT is Present. Lymphocytes Auto (Unsp spec) [#/Vol]Ordered By: Willie Regalado on 06-09-2024 Lymphocytes (Bld) [#/Vol] 2.49 10*3/uL 0.83-4.51 [facility] Lymphocytes/100 WBC Auto (Un sp spec)Ordered By: Willie Regalado on 06-09-2024 Lymphocytes/100 WBC (Bld) 35.0 % 19-41 [facility] MCV (mean corpuscular volume ) determinationOrdered By: Willie Regalado on 06-09-2024 MCV (RBC) [Entitic vol] 87.5 fL 80-94 [facility] Mean corpuscular hemoglobin (MCH) determinationOrdered By: Willie Regalado on 06-09-2024 MCH (RBC) [Entitic mass] 27.4 pg 27.0-32.0 [facility] Mean corpuscular hemoglobin concentration (MCHC) determinationOrdered By: Willie Regalado on 06-09-2024 MCHC (RBC) [Mass/Vol] 31.3 g/dL Low 32-36 [facility] Mean platelet volume determi nationOrdered By: Willie Regalado on 06-09-2024 Platelet mean volume (Bld) [Entitic vol] 10.4 fL 6.2-12.0 [facility] Monocyte percentageOrdered B y: Willie Regalado on 06-09-2024 Monocytes/100 WBC (Bld) 10.0 % 0-10 [facility] Neutrophil percentageOrdered By: Willie Regalado on 06-09-2024 Neutrophils/100 WBC (Bld) 45.9 % Low 47-70 [facility] Nucleated red blood cell per centageOrdered By: Willie Regalado on 06-09-2024 Nucleated RBC/100 WBC (Bld) [Ratio] 0 % 0-5 [facility] Platelet countOrdered By: Jatin Sandra on 06-09-2024 Platelets (Bld) [#/Vol] 335 10*3/uL 150-450 [facility] RBC Auto (Bld) [#/Vol]Ordere d By: Willie Regalado on 06-09-2024 RBC (Bld) [#/Vol] 5.19 10*6/uL 4.6-6.2 [facility] White blood cell (WBC) count Ordered By: Willie Regalado on 06-09-2024 WBC (Bld) [#/Vol] 7.1 10*3/uL 4.4-11.0 [facility] Immunoglobulin Tyron 4 IMMUNOGLOB G QN 1047 mg/dL Normal 603-1613 [facility] Comment on above: Order Comment: 112.2 Result Comment: Perf ormed at: [facility] [address] [id number] Ingot Supervisor: Abiodun Bolton PhD, Phone: [phone] Performed By: #### L 100.0500, L500.2500 #### [facility] [address] [place], [place], [id number] Albumin to globulin ratioOrd ered By: Willie Regalado on 2024 Albumin/Globulin [Mass ratio] 1.0 {ratio} 0.9-2.4 [facility] Bilirubin, totalOrdered By: Willie Regalado on 2024 Bilirubin [Mass/Vol] 0.30 mg/dL 0.20-1.00 [facility] Comment on above: For patients on eltr ombopag therapy, use of Dimension [place] TBIL is not recommended. Blood urea nitrogen (BUN)/cr eatinine ratioOrdered By: Willie Regalado on 2024 Urea nitrogen/Creatinine [Mass ratio] 7.7 mg/mg Low 10-20 [facility] CBC-Complete Blood Cnt No Di ffon 2024 Erythrocyte distribution width (RBC) [Ratio] 14.4 % Normal 11.6-14.6 [facility] Comment on above: Order Comment: 112.2 Performed By: #### L 100.0500, L500.2500 #### [facility] [address] [place], [place], [id number] Hematocrit (Bld) [Volume fraction] 43.9 % Normal 40-54 [facility] Comment on above: Order Comment: 112.2 Performed By: #### L 100.0500, L500.2500 #### [facility] [address] [place], [address] Hemoglobin (Bld) [Mass/Vol] 13.8 g/dL Normal 13.0-16.5 [facility] Comment on above: Order Comment: 112.2 Performed By: #### L 100.0500, L500.2500 #### [facility] [address] [place], [address] MCH (RBC) [Entitic mass] 27.5 pg Normal 27.0-32.0 [facility] Comment on above: Order Comment: 112.2 Performed By: #### L 100.0500, L500.2500 #### [facility] [address] [place], [address] MCHC (RBC) [Mass/Vol] 31.4 g/dL Low 32-36 [facility] Comment on above: Order Comment: 112.2 Performed By: #### L 100.0500, L500.2500 #### [facility] [address] [place], [address] MCV (RBC) [Entitic vol] 87.6 fL Normal 80-94 [facility] Comment on above: Order Comment: 112.2 Performed By: #### L 100.0500, L500.2500 #### [facility] [address] [place], [address] Platelet mean volume (Bld) [Entitic vol] 10.9 fL Normal 6.2-12.0 [facility] Comment on above: Order Comment: 112.2 Performed By: #### L 100.0500, L500.2500 #### [facility] [address] [place], [address] Platelets (Bld) [#/Vol] 322 10*3/uL Normal 150-450 [facility] Comment on above: Order Comment: 112.2 Performed By: #### L 100.0500, L500.2500 #### [facility] [address] [place], [address] RBC (Bld) [#/Vol] 5.01 10*6/uL Normal 4.6-6.2 [facility] Comment on above: Order Comment: 112.2 Performed By: #### L 100.0500, L500.2500 #### [facility] [address] [place], [address] RDW SD 46.1 fl High 35.1-43.9 [facility] Comment on above: Order Comment: 112.2 Performed By: #### L 100.0500, L500.2500 #### [facility] [address] [place], [address] WBC (Bld) [#/Vol] 8.9 10*3/uL Normal 4.4-11.0 [facility] Comment on above: Order Comment: 112.2 Performed By: #### L 100.0500, L500.2500 #### [facility] [address] [place], [address] Carbon dioxide measurementOr dered By: Willie Regalado on 2024 CO2 [Moles/Vol] 27.0 mmol/L 21.0-32.0 [facility] Chloride measurementOrdered By: Willie Regalado on 2024 Chloride [Moles/Vol] 105 mmol/L 98-107 [facility] Comprehensive Metabolic Prof ilon 2024 Albumin [Mass/Vol] 3.8 g/dL Normal 3.2-5.0 [facility] Comment on above: Order Comment: 112.2 Performed By: #### L 100.0500, L500.2500 #### [facility] [address] [place], [address] Albumin/Globulin [Mass ratio] 1.0 {ratio} Normal 0.9-2.4 [facility] Comment on above: Order Comment: 112.2 Performed By: #### L 100.0500, L500.2500 #### [facility] [address] [place], [address] ALK P 120 U/L High 45-117 [facility] Comment on above: Order Comment: 112.2 Performed By: #### L 100.0500, L500.2500 #### [facility] [address] [place], [address] ALT [Catalytic activity/Vol] 22 U/L Normal 16-61 [facility] Comment on above: Order Comment: 112.2 Performed By: #### L 100.0500, L500.2500 #### [facility] [address] [place], [address] AST [Catalytic activity/Vol] 19 U/L Normal 15-37 [facility] Comment on above: Order Comment: 112.2 Result Comment: Slig ht Hemolysis, Result may be falsely increased. Performed By: #### L 100.0500, L500.2500 #### [facility] [address] [place], [address] Bilirubin [Mass/Vol] 0.30 mg/dL Normal 0.20-1.00 [facility] Comment on above: Order Comment: 112.2 Result Comment: For patients on eltrombopag therapy, use of Dimension [place] TBIL is not recommended. Performed By: #### L 100.0500, L500.2500 #### [facility] [address] [place], [address] BUN/CRE 7.7 RATIO Low 10-20 [facility] Comment on above: Order Comment: 112.2 Performed By: #### L 100.0500, L500.2500 #### [facility] [address] [place], [address] CA,Total 8.9 mg/dL Normal 8.5-10.1 [facility] Comment on above: Order Comment: 112.2 Performed By: #### L 100.0500, L500.2500 #### [facility] [address] [place], [address] Chloride [Moles/Vol] 105 mmol/L Normal 98-107 [facility] Comment on above: Order Comment: 112.2 Performed By: #### L 100.0500, L500.2500 #### [facility] [address] [place], [address] CO2 [Moles/Vol] 27.0 mmol/L Normal 21.0-32.0 [facility] Comment on above: Order Comment: 112.2 Performed By: #### L 100.0500, L500.2500 #### [facility] [address] [place], [address] Creatinine [Mass/Vol] 1.17 mg/dL Normal 0.70-1.30 [facility] Comment on above: Order Comment: 112.2 Result Comment: The validity of the calculated GFR GFRAA in patients over 70 years has not been determined. Clinical correlation is essential. Performed By: #### L 100.0500, L500.2500 #### [facility] [address] [place], [address] EST GFR - AA 84 mL/min Normal >60 [facility] Comment on above: Order Comment: 112.2 Result Comment: Afri can Somali GFR Calc Performed By: #### L 100.0500, L500.2500 #### [facility] [address] [place], [address] GAP 7 Normal 5-15 [facility] Comment on above: Order Comment: 112.2 Performed By: #### L 100.0500, L500.2500 #### [facility] [address] [place], [address] GFR/1.73 sq M.predicted among non-blacks MDRD (S/P/Bld) [Vol rate/Area] 69 mL/min/{1.73_m2} Normal >60 [facility] Comment on above: Order Comment: 112.2 Result Comment: Non- GFR Calc Performed By: #### L 100.0500, L500.2500 #### [facility] [address] [place], [address] Globulin (S) [Mass/Vol] 3.8 g/dL Normal 2.2-4.2 [facility] Comment on above: Order Comment: 112.2 Performed By: #### L 100.0500, L500.2500 #### [facility] [address] [place], [address] Glucose [Mass/Vol] 102 mg/dL Normal 74-106 [facility] Comment on above: Order Comment: 112.2 Result Comment: Fast ing Glucose result from 100 to 125 mg/dL suggests IMPAIRED HOMEOSTASIS per A.D.A. criteria. Performed By: #### L 100.0500, L500.2500 #### [facility] [address] [place], [address] Potassium [Moles/Vol] 3.8 mmol/L Normal 3.5-5.1 [facility] Comment on above: Order Comment: 112.2 Result Comment: Slig ht Hemolysis, Result may be falsely increased. Performed By: #### L 100.0500, L500.2500 #### [facility] [address] [place], [address] Sodium [Moles/Vol] 138 mmol/L Normal 136-145 [facility] Comment on above: Order Comment: 112.2 Performed By: #### L 100.0500, L500.2500 #### [facility] [address] [place], [address] T PROT 7.6 g/dL Normal 6.4-8.2 [facility] Comment on above: Order Comment: 112.2 Performed By: #### L 100.0500, L500.2500 #### [facility] [address] [place], [address] Urea nitrogen [Mass/Vol] 9 mg/dL Normal 7-18 [facility] Comment on above: Order Comment: 112.2 Performed By: #### L 100.0500, L500.2500 #### [facility] [address] [place], [address] Erythrocyte distribution wid th ratioOrdered By: Willie Regalado on 2024 Erythrocyte distribution width (RBC) [Ratio] 14.4 % 11.6-14.6 [facility] Erythrocyte distribution wid th standard deviationOrdered By: Willie Regalado on 2024 Erythrocyte distribution width (RBC) [Entitic vol] 46.1 fL High 35.1-43.9 [facility] Estimated glomerular filtrat ion rate (GFR) AmericanOrdered By: Willie Regalado on 2024 Estimated GFR (MDRD) Amer 84 mL/min >60 [facility] Comment on above: GFR Calc Glomerular filtration rate ( GFR) estimationOrdered By: Willie Regalado on 2024 Estimated GFR (MDRD) Non-Af Amer 69 mL/min >60 [facility] Comment on above: Non- GFR Calc Glucose measurementOrdered B y: Willie Regalado on 2024 Glucose [Mass/Vol] 102 mg/dL 74-106 [facility] Comment on above: Fasting Glucose resu lt from 100 to 125 mg/dL suggests IMPAIRED HOMEOSTASIS per A.D.A. criteria. Hematocrit Auto (Bld) [Volum e fraction]Ordered By: Willie Regalado on 2024 Hematocrit (Bld) [Volume fraction] 43.9 % 40-54 [facility] Hemoglobin measurementOrdere d By: Willie Regalado on 2024 Hemoglobin (Bld) [Mass/Vol] 13.8 g/dL 13.0-16.5 [facility] IgG [Mass/Vol]Ordered By: Jatin Sandra on 2024 Immunoglobulin G 1047 mg/dL 603-1612 [facility] Comment on above: Performed at: [address] [id number] Director: Abiodun Bolton PhD, Phone: [phone] Laboratory - Chemistry and C hemistry - challengeOrdered By: Willie Regalado on 2024 AST [Catalytic activity/Vol] 19 U/L 15-37 [facility] Comment on above: Slight Hemolysis, Re sult may be falsely increased. MCV (mean corpuscular volume ) determinationOrdered By: Willie Regalado on 2024 MCV (RBC) [Entitic vol] 87.6 fL 80-94 [facility] Mean corpuscular hemoglobin (MCH) determinationOrdered By: Willie Regalado on 2024 MCH (RBC) [Entitic mass] 27.5 pg 27.0-32.0 [facility] Mean corpuscular hemoglobin concentration (MCHC) determinationOrdered By: Willie Regalado on 2024 MCHC (RBC) [Mass/Vol] 31.4 g/dL Low 32-36 [facility] Mean platelet volume determi nationOrdered By: Willie Regalado on 2024 Platelet mean volume (Bld) [Entitic vol] 10.9 fL 6.2-12.0 [facility] Platelet countOrdered By: Jatin Sandra on 2024 Platelets (Bld) [#/Vol] 322 10*3/uL 150-450 [facility] Potassium measurementOrdered By: Willie Regalado on 2024 Potassium [Moles/Vol] 3.8 mmol/L 3.5-5.1 [facility] Comment on above: Slight Hemolysis, Re sult may be falsely increased. RBC Auto (Bld) [#/Vol]Ordere d By: Willie Regalado on 2024 RBC (Bld) [#/Vol] 5.01 10*6/uL 4.6-6.2 [facility] Serum anion gap measurementO rdered By: Willie Regalado on 2024 Anion gap [Moles/Vol] 7 mmol/L 5-15 [facility] Serum globulin measurementOr dered By: Willie Regalado on 2024 Globulin (S) [Mass/Vol] 3.8 g/dL 2.2-4.2 [facility] Serum or plasma alanine thomas otransferase (ALT) measurementOrdered By: Willie Regalado on 2024 ALT [Catalytic activity/Vol] 22 U/L 16-61 [facility] Serum or plasma albumin emerita urement (mass/volume)Ordered By: Willie Regalado on 2024 Albumin [Mass/Vol] 3.8 g/dL 3.2-5.0 [facility] Serum or plasma alkaline leah sphatase measurementOrdered By: Willie Regalado on 2024 ALP [Catalytic activity/Vol] 120 U/L High 45-117 [facility] Serum or plasma calcium emerita urement (mass/volume)Ordered By: Willie Regalado on 2024 Calcium [Mass/Vol] 8.9 mg/dL 8.5-10.1 [facility] Serum or plasma creatinine m easurement (mass/volume)Ordered By: Willie Regalado on 2024 Creatinine [Mass/Vol] 1.17 mg/dL 0.70-1.30 [facility] Comment on above: The validity of the calculated GFR & GFRAA in patients over 70 years has not been determined. Clinical correlation is essential. Serum or plasma urea nitroge n measurement (mass/volume)Ordered By: Willie Regalado on 2024 Urea nitrogen [Mass/Vol] 9 mg/dL - [facility] Sodium levelOrdered By: Merrick Regalado on 2024 Sodium [Moles/Vol] 138 mmol/L 136-145 [facility] Total proteinOrdered By: Daniele Regalado on 2024 Protein [Mass/Vol] 7.6 g/dL 6.4-8.2 [facility] White blood cell (WBC) count Ordered By: Willie Regalado on 2024 WBC (Bld) [#/Vol] 8.9 10*3/uL 4.4-11.0 [facility] Basic Metabolic Profile (BMP )on 04-10-2024 BUN/CRE 11.8 RATIO Normal 10-20 [facility] Comment on above: Order Comment: 112.2 Performed By: #### L 500.2500, L100.0500 #### [facility] [address] [place], [address] CA,Total 9.0 mg/dL Normal 8.5-10.1 [facility] Comment on above: Order Comment: 112.2 Performed By: #### L 500.2500, L100.0500 #### [facility] [address] [place], [address] Chloride [Moles/Vol] 109 mmol/L High 98-107 [facility] Comment on above: Order Comment: 112.2 Performed By: #### L 500.2500, L100.0500 #### [facility] [address] [place], [address] CO2 [Moles/Vol] 27.0 mmol/L Normal 21.0-32.0 [facility] Comment on above: Order Comment: 112.2 Performed By: #### L 500.2500, L100.0500 #### [facility] [address] [place], [address] Creatinine [Mass/Vol] 1.27 mg/dL Normal 0.70-1.30 [facility] Comment on above: Order Comment: 112.2 Result Comment: The validity of the calculated GFR GFRAA in patients over 70 years has not been determined. Clinical correlation is essential. Performed By: #### L 500.2500, L100.0500 #### [facility] [address] [place], [address] EST GFR - AA 76 mL/min Normal >60 [facility] Comment on above: Order Comment: 112.2 Result Comment: Afri can Somali GFR Calc Performed By: #### L 500.2500, L100.0500 #### [facility] [address] [place], [address] GAP 5 Normal 5-15 [facility] Comment on above: Order Comment: 112.2 Performed By: #### L 500.2500, L100.0500 #### [facility] [address] [place], [address] GFR/1.73 sq M.predicted among non-blacks MDRD (S/P/Bld) [Vol rate/Area] 63 mL/min/{1.73_m2} Normal >60 [facility] Comment on above: Order Comment: 112.2 Result Comment: Non- GFR Calc Performed By: #### L 500.2500, L100.0500 #### [facility] [address] [place], [address] Glucose [Mass/Vol] 97 mg/dL Normal 74-106 [facility] Comment on above: Order Comment: 112.2 Performed By: #### L 500.2500, L100.0500 #### [facility] [address] [place], [address] Potassium [Moles/Vol] 4.0 mmol/L Normal 3.5-5.1 [facility] Comment on above: Order Comment: 112.2 Performed By: #### L 500.2500, L100.0500 #### [facility] [address] [place], [address] Sodium [Moles/Vol] 141 mmol/L Normal 136-145 [facility] Comment on above: Order Comment: 112.2 Performed By: #### L 500.2500, L100.0500 #### [facility] [address] [place], [address] Urea nitrogen [Mass/Vol] 15 mg/dL Normal 7-18 [facility] Comment on above: Order Comment: 112.2 Performed By: #### L 500.2500, L100.0500 #### [facility] [address] [place], [address] CBC-Complete Blood Cnt No Di ffon 04-10-2024 Erythrocyte distribution width (RBC) [Ratio] 14.0 % Normal 11.6-14.6 [facility] Comment on above: Order Comment: 112.2 Performed By: #### L 500.2500, L100.0500 #### [facility] [address] [place], [address] Hematocrit (Bld) [Volume fraction] 43.3 % Normal 40-54 [facility] Comment on above: Order Comment: 112.2 Performed By: #### L 500.2500, L100.0500 #### [facility] [address] [place], [address] Hemoglobin (Bld) [Mass/Vol] 13.5 g/dL Normal 13.0-16.5 [facility] Comment on above: Order Comment: 112.2 Performed By: #### L 500.2500, L100.0500 #### [facility] [address] [place], [address] MCH (RBC) [Entitic mass] 28.1 pg Normal 27.0-32.0 [facility] Comment on above: Order Comment: 112.2 Performed By: #### L 500.2500, L100.0500 #### [facility] [address] [place], [address] MCHC (RBC) [Mass/Vol] 31.2 g/dL Low 32-36 [facility] Comment on above: Order Comment: 112.2 Performed By: #### L 500.2500, L100.0500 #### [facility] [address] [place], [address] MCV (RBC) [Entitic vol] 90.0 fL Normal 80-94 [facility] Comment on above: Order Comment: 112.2 Performed By: #### L 500.2500, L100.0500 #### [facility] [address] [place], [address] Platelet mean volume (Bld) [Entitic vol] 10.6 fL Normal 6.2-12.0 [facility] Comment on above: Order Comment: 112.2 Performed By: #### L 500.2500, L100.0500 #### [facility] [address] [place], [address] Platelets (Bld) [#/Vol] 294 10*3/uL Normal 150-450 [facility] Comment on above: Order Comment: 112.2 Performed By: #### L 500.2500, L100.0500 #### [facility] [address] [place], [address] RBC (Bld) [#/Vol] 4.81 10*6/uL Normal 4.6-6.2 [facility] Comment on above: Order Comment: 112.2 Performed By: #### L 500.2500, L100.0500 #### [facility] [address] [place], [address] RDW SD 46.8 fl High 35.1-43.9 [facility] Comment on above: Order Comment: 112.2 Performed By: #### L 500.2500, L100.0500 #### [facility] [address] [place], [address] WBC (Bld) [#/Vol] 8.4 10*3/uL Normal 4.4-11.0 [facility] Comment on above: Order Comment: 112.2 Performed By: #### L 500.2500, L100.0500 #### [facility] [address] [place], [address] Basic Metabolic Profile (BMP )on 04-07-2024 BUN/CRE 11.8 RATIO Normal 10-20 [facility] Comment on above: Order Comment: 112-2 Performed By: #### L 500.2500, L100.0500 #### [facility] [address] [place], [address] CA,Total 9.7 mg/dL Normal 8.5-10.1 [facility] Comment on above: Order Comment: 112-2 Performed By: #### L 500.2500, L100.0500 #### [facility] [address] [place], [address] Chloride [Moles/Vol] 106 mmol/L Normal 98-107 [facility] Comment on above: Order Comment: 112-2 Performed By: #### L 500.2500, L100.0500 #### [facility] [address] [place], [address] CO2 [Moles/Vol] 25.0 mmol/L Normal 21.0-32.0 [facility] Comment on above: Order Comment: 112-2 Performed By: #### L 500.2500, L100.0500 #### [facility] [address] [place], [address] Creatinine [Mass/Vol] 1.19 mg/dL Normal 0.70-1.30 [facility] Comment on above: Order Comment: 112-2 Result Comment: The validity of the calculated GFR GFRAA in patients over 70 years has not been determined. Clinical correlation is essential. Performed By: #### L 500.2500, L100.0500 #### [facility] [address] [place], [address] EST GFR - AA 82 mL/min Normal >60 [facility] Comment on above: Order Comment: 112-2 Result Comment: Afri can Somali GFR Calc Performed By: #### L 500.2500, L100.0500 #### [facility] [address] [place], [address] GAP 7 Normal 5-15 [facility] Comment on above: Order Comment: 112-2 Performed By: #### L 500.2500, L100.0500 #### [facility] [address] [place], [address] GFR/1.73 sq M.predicted among non-blacks MDRD (S/P/Bld) [Vol rate/Area] 68 mL/min/{1.73_m2} Normal >60 [facility] Comment on above: Order Comment: 112-2 Result Comment: Non- GFR Calc Performed By: #### L 500.2500, L100.0500 #### [facility] [address] [place], [address] Glucose [Mass/Vol] 99 mg/dL Normal 74-106 [facility] Comment on above: Order Comment: 112-2 Performed By: #### L 500.2500, L100.0500 #### [facility] [address] [place], [address] Potassium [Moles/Vol] 4.2 mmol/L Normal 3.5-5.1 [facility] Comment on above: Order Comment: 112-2 Performed By: #### L 500.2500, L100.0500 #### [facility] [address] [place], [address] Sodium [Moles/Vol] 138 mmol/L Normal 136-145 [facility] Comment on above: Order Comment: 112-2 Performed By: #### L 500.2500, L100.0500 #### [facility] [address] [place], [address] Urea nitrogen [Mass/Vol] 14 mg/dL Normal 7-18 [facility] Comment on above: Order Comment: 112-2 Performed By: #### L 500.2500, L100.0500 #### [facility] [address] [place], [address] CBC-Complete Blood Cnt No Di ffon 04-07-2024 Erythrocyte distribution width (RBC) [Ratio] 13.8 % Normal 11.6-14.6 [facility] Comment on above: Order Comment: 112-2 Performed By: #### L 500.2500, L100.0500 #### [facility] [address] [place], [address] Hematocrit (Bld) [Volume fraction] 44.8 % Normal 40-54 [facility] Comment on above: Order Comment: 112-2 Performed By: #### L 500.2500, L100.0500 #### [facility] [address] [place], [address] Hemoglobin (Bld) [Mass/Vol] 13.9 g/dL Normal 13.0-16.5 [facility] Comment on above: Order Comment: 112-2 Performed By: #### L 500.2500, L100.0500 #### [facility] [address] [place], [address] MCH (RBC) [Entitic mass] 28.1 pg Normal 27.0-32.0 [facility] Comment on above: Order Comment: 112-2 Performed By: #### L 500.2500, L100.0500 #### [facility] [address] [place], [address] MCHC (RBC) [Mass/Vol] 31.0 g/dL Low 32-36 [facility] Comment on above: Order Comment: 112-2 Performed By: #### L 500.2500, L100.0500 #### [facility] [address] [place], [address] MCV (RBC) [Entitic vol] 90.5 fL Normal 80-94 [facility] Comment on above: Order Comment: 112-2 Performed By: #### L 500.2500, L100.0500 #### [facility] [address] [place], [address] Platelet mean volume (Bld) [Entitic vol] 10.2 fL Normal 6.2-12.0 [facility] Comment on above: Order Comment: 112-2 Performed By: #### L 500.2500, L100.0500 #### [facility] [address] [place], [address] Platelets (Bld) [#/Vol] 323 10*3/uL Normal 150-450 [facility] Comment on above: Order Comment: 112-2 Performed By: #### L 500.2500, L100.0500 #### [facility] [address] [place], [address] RBC (Bld) [#/Vol] 4.95 10*6/uL Normal 4.6-6.2 [facility] Comment on above: Order Comment: 112-2 Performed By: #### L 500.2500, L100.0500 #### [facility] [address] [place], [address] RDW SD 45.6 fl High 35.1-43.9 [facility] Comment on above: Order Comment: 112-2 Performed By: #### L 500.2500, L100.0500 #### [facility] [address] [place], [address] WBC (Bld) [#/Vol] 8.9 10*3/uL Normal 4.4-11.0 [facility] Comment on above: Order Comment: 112-2 Performed By: #### L 500.2500, L100.0500 #### [facility] [address] [place], [address] Basic Metabolic Profile (BMP )on 03-05-2024 BUN/CRE 9.9 RATIO Low 10-20 [facility] Comment on above: Order Comment: 112.2 Performed By: #### L 500.2500, L100.0500 #### [facility] [address] [place], [address] CA,Total 9.5 mg/dL Normal 8.5-10.1 [facility] Comment on above: Order Comment: 112.2 Performed By: #### L 500.2500, L100.0500 #### [facility] [address] [place], [address] Chloride [Moles/Vol] 106 mmol/L Normal 98-107 [facility] Comment on above: Order Comment: 112.2 Performed By: #### L 500.2500, L100.0500 #### [facility] [address] [place], [address] CO2 [Moles/Vol] 26.0 mmol/L Normal 21.0-32.0 [facility] Comment on above: Order Comment: 112.2 Performed By: #### L 500.2500, L100.0500 #### [facility] [address] [place], [address] Creatinine [Mass/Vol] 1.31 mg/dL High 0.70-1.30 [facility] Comment on above: Order Comment: 112.2 Result Comment: The validity of the calculated GFR GFRAA in patients over 70 years has not been determined. Clinical correlation is essential. Performed By: #### L 500.2500, L100.0500 #### [facility] [address] [place], [address] EST GFR - AA 74 mL/min Normal >60 [facility] Comment on above: Order Comment: 112.2 Result Comment: Afri can Somali GFR Calc Performed By: #### L 500.2500, L100.0500 #### [facility] [address] [place], [address] GAP 7 Normal 5-15 [facility] Comment on above: Order Comment: 112.2 Performed By: #### L 500.2500, L100.0500 #### [facility] [address] [place], [address] GFR/1.73 sq M.predicted among non-blacks MDRD (S/P/Bld) [Vol rate/Area] 61 mL/min/{1.73_m2} Normal >60 [facility] Comment on above: Order Comment: 112.2 Result Comment: Non- GFR Calc Performed By: #### L 500.2500, L100.0500 #### [facility] [address] [place], [address] Glucose [Mass/Vol] 93 mg/dL Normal 74-106 [facility] Comment on above: Order Comment: 112.2 Performed By: #### L 500.2500, L100.0500 #### [facility] [address] [place], [address] Potassium [Moles/Vol] 4.0 mmol/L Normal 3.5-5.1 [facility] Comment on above: Order Comment: 112.2 Performed By: #### L 500.2500, L100.0500 #### [facility] [address] [place], [address] Sodium [Moles/Vol] 139 mmol/L Normal 136-145 [facility] Comment on above: Order Comment: 112.2 Performed By: #### L 500.2500, L100.0500 #### [facility] [address] [place], [address] Urea nitrogen [Mass/Vol] 13 mg/dL Normal 7-18 [facility] Comment on above: Order Comment: 112.2 Performed By: #### L 500.2500, L100.0500 #### [facility] [address] [place], [address] CBC-Complete Blood Cnt No Di ffon 03-05-2024 Erythrocyte distribution width (RBC) [Ratio] 13.4 % Normal 11.6-14.6 [facility] Comment on above: Order Comment: 112.2 Performed By: #### L 500.2500, L100.0500 #### [facility] [address] [place], [address] Hematocrit (Bld) [Volume fraction] 45.2 % Normal 40-54 [facility] Comment on above: Order Comment: 112.2 Performed By: #### L 500.2500, L100.0500 #### [facility] [address] [place], [address] Hemoglobin (Bld) [Mass/Vol] 13.9 g/dL Normal 13.0-16.5 [facility] Comment on above: Order Comment: 112.2 Performed By: #### L 500.2500, L100.0500 #### [facility] [address] [place], [address] MCH (RBC) [Entitic mass] 28.3 pg Normal 27.0-32.0 [facility] Comment on above: Order Comment: 112.2 Performed By: #### L 500.2500, L100.0500 #### [facility] [address] [place], [address] MCHC (RBC) [Mass/Vol] 30.8 g/dL Low 32-36 [facility] Comment on above: Order Comment: 112.2 Performed By: #### L 500.2500, L100.0500 #### [facility] [address] [place], [address] MCV (RBC) [Entitic vol] 92.1 fL Normal 80-94 [facility] Comment on above: Order Comment: 112.2 Performed By: #### L 500.2500, L100.0500 #### [facility] [address] [place], [address] Platelet mean volume (Bld) [Entitic vol] 10.3 fL Normal 6.2-12.0 [facility] Comment on above: Order Comment: 112.2 Performed By: #### L 500.2500, L100.0500 #### [facility] [address] [place], [address] Platelets (Bld) [#/Vol] 310 10*3/uL Normal 150-450 [facility] Comment on above: Order Comment: 112.2 Performed By: #### L 500.2500, L100.0500 #### [facility] [address] [place], [address] RBC (Bld) [#/Vol] 4.91 10*6/uL Normal 4.6-6.2 [facility] Comment on above: Order Comment: 112.2 Performed By: #### L 500.2500, L100.0500 #### [facility] [address] [place], [address] RDW SD 46.0 fl High 35.1-43.9 [facility] Comment on above: Order Comment: 112.2 Performed By: #### L 500.2500, L100.0500 #### [facility] [address] [place], [address] WBC (Bld) [#/Vol] 7.9 10*3/uL Normal 4.4-11.0 [facility] Comment on above: Order Comment: 112.2 Performed By: #### L 500.2500, L100.0500 #### [facility] [address] [place], [address] Basic Metabolic Profile (BMP )on 03-04-2024 BUN/CRE 9.2 RATIO Low - [facility] Comment on above: Performed By: #### L 100.0500, L500.2500 #### [facility] [address] [place], [address] CA,Total 9.3 mg/dL Normal 8.5-10.1 [facility] Comment on above: Performed By: #### L 100.0500, L500.2500 #### [facility] [address] [place], [address] Chloride [Moles/Vol] 107 mmol/L Normal 98-107 [facility] Comment on above: Performed By: #### L 100.0500, L500.2500 #### [facility] [address] [place], [address] CO2 [Moles/Vol] 27.0 mmol/L Normal 21.0-32.0 [facility] Comment on above: Performed By: #### L 100.0500, L500.2500 #### [facility] [address] [place], [address] Creatinine [Mass/Vol] 1.30 mg/dL Normal 0.70-1.30 [facility] Comment on above: Result Comment: The validity of the calculated GFR GFRAA in patients over 70 years has not been determined. Clinical correlation is essential. Performed By: #### L 100.0500, L500.2500 #### [facility] [address] [place], [address] EST GFR - AA 74 mL/min Normal >60 [facility] Comment on above: Result Comment: Afri can Somali GFR Calc Performed By: #### L 100.0500, L500.2500 #### [facility] [address] [place], [address] GAP 4 Low 5-15 [facility] Comment on above: Performed By: #### L 100.0500, L500.2500 #### [facility] [address] [place], [address] GFR/1.73 sq M.predicted among non-blacks MDRD (S/P/Bld) [Vol rate/Area] 61 mL/min/{1.73_m2} Normal >60 [facility] Comment on above: Result Comment: Non- GFR Calc Performed By: #### L 100.0500, L500.2500 #### [facility] [address] [place], [address] Glucose [Mass/Vol] 100 mg/dL Normal 74-106 [facility] Comment on above: Result Comment: Fast ing Glucose result from 100 to 125 mg/dL suggests IMPAIRED HOMEOSTASIS per A.D.A. criteria. Performed By: #### L 100.0500, L500.2500 #### [facility] [address] [place], [address] Potassium [Moles/Vol] 4.2 mmol/L Normal 3.5-5.1 [facility] Comment on above: Performed By: #### L 100.0500, L500.2500 #### [facility] [address] [place], [address] Sodium [Moles/Vol] 138 mmol/L Normal 136-145 [facility] Comment on above: Performed By: #### L 100.0500, L500.2500 #### [facility] [address] [place], [address] Urea nitrogen [Mass/Vol] 12 mg/dL Normal 7-18 [facility] Comment on above: Performed By: #### L 100.0500, L500.2500 #### [facility] [address] [place], [address] CBC-Complete Blood Cnt No Di ffon 03-04-2024 Erythrocyte distribution width (RBC) [Ratio] 13.3 % Normal 11.6-14.6 [facility] Comment on above: Performed By: #### L 100.0500, L500.2500 #### [facility] [address] [place], [address] Hematocrit (Bld) [Volume fraction] 42.5 % Normal 40-54 [facility] Comment on above: Performed By: #### L 100.0500, L500.2500 #### [facility] [address] [place], [address] Hemoglobin (Bld) [Mass/Vol] 13.4 g/dL Normal 13.0-16.5 [facility] Comment on above: Performed By: #### L 100.0500, L500.2500 #### [facility] [address] [place], [address] MCH (RBC) [Entitic mass] 28.6 pg Normal 27.0-32.0 [facility] Comment on above: Performed By: #### L 100.0500, L500.2500 #### [facility] [address] [place], [address] MCHC (RBC) [Mass/Vol] 31.5 g/dL Low 32-36 [facility] Comment on above: Performed By: #### L 100.0500, L500.2500 #### [facility] [address] [place], [address] MCV (RBC) [Entitic vol] 90.8 fL Normal 80-94 [facility] Comment on above: Performed By: #### L 100.0500, L500.2500 #### [facility] [address] [place], [address] Platelet mean volume (Bld) [Entitic vol] 10.3 fL Normal 6.2-12.0 [facility] Comment on above: Performed By: #### L 100.0500, L500.2500 #### [facility] [address] [place], [address] Platelets (Bld) [#/Vol] 298 10*3/uL Normal 150-450 [facility] Comment on above: Performed By: #### L 100.0500, L500.2500 #### [facility] [address] [place], [address] RBC (Bld) [#/Vol] 4.68 10*6/uL Normal 4.6-6.2 [facility] Comment on above: Performed By: #### L 100.0500, L500.2500 #### [facility] [address] [place], [address] RDW SD 44.6 fl High 35.1-43.9 [facility] Comment on above: Performed By: #### L 100.0500, L500.2500 #### [facility] [address] [place], [address] WBC (Bld) [#/Vol] 7.2 10*3/uL Normal 4.4-11.0 [facility] Comment on above: Performed By: #### L 100.0500, L500.2500 #### [facility] [address] [place], [address] Basic Metabolic Profile (BMP )on 02-13-2024 BUN/CRE 8.5 RATIO Low 10-20 [facility] Comment on above: Order Comment: 415-2 Performed By: #### L 100.0500, L500.2500 #### [facility] [address] [place], [address] CA,Total 9.0 mg/dL Normal 8.5-10.1 [facility] Comment on above: Order Comment: 415-2 Performed By: #### L 100.0500, L500.2500 #### [facility] [address] [place], [address] Chloride [Moles/Vol] 108 mmol/L High 98-107 [facility] Comment on above: Order Comment: 415-2 Performed By: #### L 100.0500, L500.2500 #### [facility] [address] [place], [address] CO2 [Moles/Vol] 27.0 mmol/L Normal 21.0-32.0 [facility] Comment on above: Order Comment: 415-2 Performed By: #### L 100.0500, L500.2500 #### [facility] [address] [place], [address] Creatinine [Mass/Vol] 1.18 mg/dL Normal 0.70-1.30 [facility] Comment on above: Order Comment: 415-2 Result Comment: The validity of the calculated GFR GFRAA in patients over 70 years has not been determined. Clinical correlation is essential. Performed By: #### L 100.0500, L500.2500 #### [facility] [address] [place], [address] EST GFR - AA 83 mL/min Normal >60 [facility] Comment on above: Order Comment: 415-2 Result Comment: Afri can Somali GFR Calc Performed By: #### L 100.0500, L500.2500 #### [facility] [address] [place], [address] GAP 5 Normal 5-15 [facility] Comment on above: Order Comment: 415-2 Performed By: #### L 100.0500, L500.2500 #### [facility] [address] [place], [address] GFR/1.73 sq M.predicted among non-blacks MDRD (S/P/Bld) [Vol rate/Area] 69 mL/min/{1.73_m2} Normal >60 [facility] Comment on above: Order Comment: 415-2 Result Comment: Non- GFR Calc Performed By: #### L 100.0500, L500.2500 #### [facility] [address] [place], [address] Glucose [Mass/Vol] 98 mg/dL Normal 74-106 [facility] Comment on above: Order Comment: 415-2 Performed By: #### L 100.0500, L500.2500 #### [facility] [address] [place], [address] Potassium [Moles/Vol] 3.6 mmol/L Normal 3.5-5.1 [facility] Comment on above: Order Comment: 415-2 Performed By: #### L 100.0500, L500.2500 #### [facility] [address] [place], [address] Sodium [Moles/Vol] 140 mmol/L Normal 136-145 [facility] Comment on above: Order Comment: 415-2 Performed By: #### L 100.0500, L500.2500 #### [facility] [address] [place], [address] Urea nitrogen [Mass/Vol] 10 mg/dL Normal 7-18 [facility] Comment on above: Order Comment: 415-2 Performed By: #### L 100.0500, L500.2500 #### [facility] [address] [place], [address] CBC-Complete Blood Cnt No Di ffon 02-13-2024 Erythrocyte distribution width (RBC) [Ratio] 13.4 % Normal 11.6-14.6 [facility] Comment on above: Order Comment: 415-2 Performed By: #### L 100.0500, L500.2500 #### [facility] [address] [place], [address] Hematocrit (Bld) [Volume fraction] 41.7 % Normal 40-54 [facility] Comment on above: Order Comment: 415-2 Performed By: #### L 100.0500, L500.2500 #### [facility] [address] [place], [address] Hemoglobin (Bld) [Mass/Vol] 13.0 g/dL Normal 13.0-16.5 [facility] Comment on above: Order Comment: 415-2 Performed By: #### L 100.0500, L500.2500 #### [facility] [address] [place], [address] MCH (RBC) [Entitic mass] 28.4 pg Normal 27.0-32.0 [facility] Comment on above: Order Comment: 415-2 Performed By: #### L 100.0500, L500.2500 #### [facility] [address] [place], [address] MCHC (RBC) [Mass/Vol] 31.2 g/dL Low 32-36 [facility] Comment on above: Order Comment: 415-2 Performed By: #### L 100.0500, L500.2500 #### [facility] [address] [place], [address] MCV (RBC) [Entitic vol] 91.2 fL Normal 80-94 [facility] Comment on above: Order Comment: 415-2 Performed By: #### L 100.0500, L500.2500 #### [facility] [address] [place], [address] Platelet mean volume (Bld) [Entitic vol] 10.3 fL Normal 6.2-12.0 [facility] Comment on above: Order Comment: 415-2 Performed By: #### L 100.0500, L500.2500 #### [facility] [address] [place], [address] Platelets (Bld) [#/Vol] 287 10*3/uL Normal 150-450 [facility] Comment on above: Order Comment: 415-2 Performed By: #### L 100.0500, L500.2500 #### [facility] [address] [place], [address] RBC (Bld) [#/Vol] 4.57 10*6/uL Low 4.6-6.2 [facility] Comment on above: Order Comment: 415-2 Performed By: #### L 100.0500, L500.2500 #### [facility] [address] [place], [address] RDW SD 45.1 fl High 35.1-43.9 [facility] Comment on above: Order Comment: 415-2 Performed By: #### L 100.0500, L500.2500 #### [facility] [address] [place], [address] WBC (Bld) [#/Vol] 7.6 10*3/uL Normal 4.4-11.0 [facility] Comment on above: Order Comment: 415-2 Performed By: #### L 100.0500, L500.2500 #### [facility] [address] [place], [address] CBC W/Diff, Automatedon - Absolute Lymph 1.92 X10 3/uL Normal 0.83-4.51 [facility] Comment on above: Order Comment: 112.2 Performed By: #### L 500.2500, L100.0500 #### [facility] [address] [place], [address] Absolute Neut 4.2 X10 3/uL Normal 2.0-7.7 [facility] Comment on above: Order Comment: 112.2 Performed By: #### L 500.2500, L100.0500 #### [facility] [address] [place], [address] Basophils/100 WBC (Bld) 0.4 % Normal 0-1 [facility] Comment on above: Order Comment: 112.2 Performed By: #### L 500.2500, L100.0500 #### [facility] [address] [place], [address] Eosinophils/100 WBC (Bld) 6.0 % High 0-5 [facility] Comment on above: Order Comment: 112.2 Performed By: #### L 500.2500, L100.0500 #### [facility] [address] [place], [address] Erythrocyte distribution width (RBC) [Ratio] 13.3 % Normal 11.6-14.6 [facility] Comment on above: Order Comment: 112.2 Performed By: #### L 500.2500, L100.0500 #### [facility] [address] [place], [address] Hematocrit (Bld) [Volume fraction] 40.1 % Normal 40-54 [facility] Comment on above: Order Comment: 112.2 Performed By: #### L 500.2500, L100.0500 #### [facility] [address] [place], [address] Hemoglobin (Bld) [Mass/Vol] 12.8 g/dL Low 13.0-16.5 [facility] Comment on above: Order Comment: 112.2 Performed By: #### L 500.2500, L100.0500 #### [facility] [address] [place], [address] IG% 0.900 Normal 0.0-0.9 [facility] Comment on above: Order Comment: 112.2 Result Comment: IG% - Immature Granulocytes (promyelocytes, myelocytes and metamyelocytes) > 1% indicates that a LEFT SHIFT is Present. Performed By: #### L 500.2500, L100.0500 #### [facility] [address] [place], [address] Lymphocytes/100 WBC (Bld) 25.7 % Normal 19-41 [facility] Comment on above: Order Comment: 112.2 Performed By: #### L 500.2500, L100.0500 #### [facility] [address] [place], [address] MCH (RBC) [Entitic mass] 29.0 pg Normal 27.0-32.0 [facility] Comment on above: Order Comment: 112.2 Performed By: #### L 500.2500, L100.0500 #### [facility] [address] [place], [address] MCHC (RBC) [Mass/Vol] 31.9 g/dL Low 32-36 [facility] Comment on above: Order Comment: 112.2 Performed By: #### L 500.2500, L100.0500 #### [facility] [address] [place], [address] MCV (RBC) [Entitic vol] 90.7 fL Normal 80-94 [facility] Comment on above: Order Comment: 112.2 Performed By: #### L 500.2500, L100.0500 #### [facility] [address] [place], [address] Monocytes/100 WBC (Bld) 11.5 % High 0-10 [facility] Comment on above: Order Comment: 112.2 Performed By: #### L 500.2500, L100.0500 #### [facility] [address] [place], [address] Neutrophils/100 WBC (Bld) 55.5 % Normal 47-70 [facility] Comment on above: Order Comment: 112.2 Performed By: #### L 500.2500, L100.0500 #### [facility] [address] [place], [address] Nucleated RBC (Bld) [#/Vol] 0 10*3/uL Normal 0-5 [facility] Comment on above: Order Comment: 112.2 Performed By: #### L 500.2500, L100.0500 #### [facility] [address] [place], [address] Platelet mean volume (Bld) [Entitic vol] 10.4 fL Normal 6.2-12.0 [facility] Comment on above: Order Comment: 112.2 Performed By: #### L 500.2500, L100.0500 #### [facility] [address] [place], [address] Platelets (Bld) [#/Vol] 288 10*3/uL Normal 150-450 [facility] Comment on above: Order Comment: 112.2 Performed By: #### L 500.2500, L100.0500 #### [facility] [address] [place], [address] RBC (Bld) [#/Vol] 4.42 10*6/uL Low 4.6-6.2 [facility] Comment on above: Order Comment: 112.2 Performed By: #### L 500.2500, L100.0500 #### [facility] [address] [place], [address] RDW SD 44.1 fl High 35.1-43.9 [facility] Comment on above: Order Comment: 112.2 Performed By: #### L 500.2500, L100.0500 #### [facility] [address] [place], [address] WBC (Bld) [#/Vol] 7.5 10*3/uL Normal 4.4-11.0 [facility] Comment on above: Order Comment: 112.2 Performed By: #### L 500.2500, L100.0500 #### [facility] [address] [place], [address] Comprehensive Metabolic Prof [facility] 01-30-2024 Albumin [Mass/Vol] 3.4 g/dL Normal 3.2-5.0 [facility] Comment on above: Order Comment: 112.2 Performed By: #### L 500.2500, L100.0500 #### [facility] [address] [place], [address] Albumin/Globulin [Mass ratio] 0.9 {ratio} Normal 0.9-2.4 [facility] Comment on above: Order Comment: 112.2 Performed By: #### L 500.2500, L100.0500 #### [facility] [address] [place], [address] ALK P 92 U/L Normal 45-117 [facility] Comment on above: Order Comment: 112.2 Performed By: #### L 500.2500, L100.0500 #### [facility] [address] [place], [address] ALT [Catalytic activity/Vol] 21 U/L Normal 16-61 [facility] Comment on above: Order Comment: 112.2 Performed By: #### L 500.2500, L100.0500 #### [facility] [address] [place], [address] AST [Catalytic activity/Vol] 17 U/L Normal 15-37 [facility] Comment on above: Order Comment: 112.2 Performed By: #### L 500.2500, L100.0500 #### [facility] [address] [place], [address] Bilirubin [Mass/Vol] 0.30 mg/dL Normal 0.20-1.00 [facility] Comment on above: Order Comment: 112.2 Result Comment: For patients on eltrombopag therapy, use of Dimension [place] TBIL is not recommended. Performed By: #### L 500.2500, L100.0500 #### [facility] [address] [place], [address] BUN/CRE 10.4 RATIO Normal 10-20 [facility] Comment on above: Order Comment: 112.2 Performed By: #### L 500.2500, L100.0500 #### [facility] [address] [place], [address] CA,Total 9.0 mg/dL Normal 8.5-10.1 [facility] Comment on above: Order Comment: 112.2 Performed By: #### L 500.2500, L100.0500 #### [facility] [address] [place], [address] Chloride [Moles/Vol] 106 mmol/L Normal 98-107 [facility] Comment on above: Order Comment: 112.2 Performed By: #### L 500.2500, L100.0500 #### [facility] [address] [place], [address] CO2 [Moles/Vol] 27.0 mmol/L Normal 21.0-32.0 [facility] Comment on above: Order Comment: 112.2 Performed By: #### L 500.2500, L100.0500 #### [facility] [address] [place], [address] Creatinine [Mass/Vol] 1.25 mg/dL Normal 0.70-1.30 [facility] Comment on above: Order Comment: 112.2 Result Comment: The validity of the calculated GFR GFRAA in patients over 70 years has not been determined. Clinical correlation is essential. Performed By: #### L 500.2500, L100.0500 #### [facility] [address] [place], [address] EST GFR - AA 78 mL/min Normal >60 [facility] Comment on above: Order Comment: 112.2 Result Comment: Afri can Somali GFR Calc Performed By: #### L 500.2500, L100.0500 #### [facility] [address] [place], [address] GAP 6 Normal 5-15 [facility] Comment on above: Order Comment: 112.2 Performed By: #### L 500.2500, L100.0500 #### [facility] [address] [place], [address] GFR/1.73 sq M.predicted among non-blacks MDRD (S/P/Bld) [Vol rate/Area] 64 mL/min/{1.73_m2} Normal >60 [facility] Comment on above: Order Comment: 112.2 Result Comment: Non- GFR Calc Performed By: #### L 500.2500, L100.0500 #### [facility] [address] [place], [address] Globulin (S) [Mass/Vol] 3.9 g/dL Normal 2.2-4.2 [facility] Comment on above: Order Comment: 112.2 Performed By: #### L 500.2500, L100.0500 #### [facility] [address] [place], [address] Glucose [Mass/Vol] 115 mg/dL High 74-106 [facility] Comment on above: Order Comment: 112.2 Result Comment: Fast ing Glucose result from 100 to 125 mg/dL suggests IMPAIRED HOMEOSTASIS per A.D.A. criteria. Performed By: #### L 500.2500, L100.0500 #### [facility] [address] [place], [address] Potassium [Moles/Vol] 3.7 mmol/L Normal 3.5-5.1 [facility] Comment on above: Order Comment: 112.2 Performed By: #### L 500.2500, L100.0500 #### [facility] [address] [place], [address] Sodium [Moles/Vol] 139 mmol/L Normal 136-145 [facility] Comment on above: Order Comment: 112.2 Performed By: #### L 500.2500, L100.0500 #### [facility] [address] [place], [address] T PROT 7.3 g/dL Normal 6.4-8.2 [facility] Comment on above: Order Comment: 112.2 Performed By: #### L 500.2500, L100.0500 #### [facility] [address] [place], [address] Urea nitrogen [Mass/Vol] 13 mg/dL Normal 7-18 [facility] Comment on above: Order Comment: 112.2 Performed By: #### L 500.2500, L100.0500 #### [facility] [address] [place], [address] Hemoglobin A1con 01-29-2024 HbA1c (Bld) [Mass fraction] 5.5 % Normal 3.8-5.6 [facility] Comment on above: Order Comment: 112.2 Result Comment: . Normal < 5.7 % Prediabetic 5.7 - 6.4 % Diabetic >or= 6.5 % Please note range changes. AMENDED REPORT 01/29/24 1210 HGB A1C previously reported as: 5.5 % Performed By: #### L 500.2500, L100.0500 #### [facility] [address] [place], [address] Basophil percentageOrdered B y: Willie Regalado on 10-09-2023 Chloride [Moles/Vol] 103 mmol/L 98-107 [facility] Glucose [Mass/Vol] 104 mg/dL 74-106 [facility] Comment on above: Fasting Glucose resu lt from 100 to 125 mg/dL suggests IMPAIRED HOMEOSTASIS per A.D.A. criteria. Hemoglobin (Bld) [Mass/Vol] 13.3 g/dL 13.0-16.5 [facility] Potassium [Moles/Vol] 3.9 mmol/L 3.5-5.1 [facility] Sodium [Moles/Vol] 139 mmol/L 136-145 [facility] WBC (Bld) [#/Vol] 7.1 10*3/uL 4.4-11.0 [facility] Determination of erythrocyte mean corpuscular volume (MCV)Ordered By: Willie Regalado on 10-09-2023 MCV (RBC) [Entitic vol] 93.0 fL 80-94 [facility] Erythrocyte distribution wid th ratioOrdered By: Willie Regalado on 10-09-2023 Erythrocyte distribution width (RBC) [Ratio] 12.9 % 11.6-14.6 [facility] Erythrocyte distribution wid th standard deviationOrdered By: Willie Regalado on 10-09-2023 Erythrocyte distribution width (RBC) [Entitic vol] 44.1 fL 35.1-43.9 [facility] Hematocrit Auto (Bld) [Volum e fraction]Ordered By: Willie Regalado on 10-09-2023 Hematocrit (Bld) [Volume fraction] 41.2 % 40-54 [facility] - Chemistry and C hemistry - challengeOrdered By: Willie Regalado on 03-26-2024 CO2 [Moles/Vol] 29.0 mmol/L 21.0-32.0 [facility] Urea nitrogen/Creatinine [Mass ratio] 12.2 mg/mg 10-20 [facility] - Hematology and Cell countsOrdered By: Willie Regalado on 10-09-2023 MCH (RBC) [Entitic mass] 30.0 pg 27.0-32.0 [facility] MCHC (RBC) [Mass/Vol] 32.3 g/dL 32-36 [facility] Platelet mean volume (Bld) [Entitic vol] 10.0 fL 6.2-12.0 [facility] Platelets (Bld) [#/Vol] 246 10*3/uL 150-450 [facility] No Panel InformationOrdered By: Willie Regalado on 10-09-2023 Estimated GFR (MDRD) Amer 79 mL/min >60 [facility] Comment on above: GFR Calc Estimated GFR (MDRD) Non-Af Amer 66 mL/min >60 [facility] Comment on above: Non- GFR Calc RBC Auto (Bld) [#/Vol]Ordere d By: Willie Regalado on 10-09-2023 RBC (Bld) [#/Vol] 4.43 10*6/uL 4.6-6.2 [facility] Serum or plasma calcium emerita urement (mass/volume)Ordered By: Willie Regalado on 10-09-2023 Calcium [Mass/Vol] 9.1 mg/dL 8.5-10.1 [facility] Serum or plasma creatinine m easurement (mass/volume)Ordered By: Willie Regalado on 10-09-2023 Creatinine [Mass/Vol] 1.23 mg/dL 0.70-1.30 [facility] Comment on above: The validity of the calculated GFR & GFRAA in patients over 70 years has not been determined. Clinical correlation is essential. Serum or plasma urea nitroge n measurement (mass/volume)Ordered By: Willie Regalado on 10-09-2023 Urea nitrogen [Mass/Vol] 15 mg/dL 7-18 [facility] Thin prep Papanicolaou smear with manual screeningOrdered By: Willie Regalado on 10-09-2023 Thin prep Papanicolaou smear with manual screening 7 5-15 [facility] Basophil percentageOrdered B y: Willie Regalado on 09-11-2023 Chloride [Moles/Vol] 109 mmol/L 98-107 [facility] Glucose [Mass/Vol] 96 mg/dL 74-106 [facility] Hemoglobin (Bld) [Mass/Vol] 12.0 g/dL 13.0-16.5 [facility] Potassium [Moles/Vol] 3.9 mmol/L 3.5-5.1 [facility] Sodium [Moles/Vol] 140 mmol/L 136-145 [facility] WBC (Bld) [#/Vol] 6.4 10*3/uL 4.4-11.0 [facility] Determination of erythrocyte mean corpuscular volume (MCV)Ordered By: Willie Regalado on 09-11-2023 MCV (RBC) [Entitic vol] 94.6 fL 80-94 [facility] Erythrocyte distribution wid th ratioOrdered By: Willie Regalado on 09-11-2023 Erythrocyte distribution width (RBC) [Ratio] 13.4 % 11.6-14.6 [facility] Erythrocyte distribution wid th standard deviationOrdered By: Willie Regalado on 09-11-2023 Erythrocyte distribution width (RBC) [Entitic vol] 46.1 fL 35.1-43.9 [facility] Hematocrit Auto (Bld) [Volum e fraction]Ordered By: Willie Regalado on 09-11-2023 Hematocrit (Bld) [Volume fraction] 36.9 % 40-54 [facility] - Chemistry and C hemistry - challengeOrdered By: Willie Regalado on 09-11-2023 CO2 [Moles/Vol] 27.0 mmol/L 21.0-32.0 [facility] Urea nitrogen/Creatinine [Mass ratio] 15.4 mg/mg 10-20 [facility] - Hematology and Cell countsOrdered By: Willie Regalado on 09-11-2023 MCH (RBC) [Entitic mass] 30.8 pg 27.0-32.0 [facility] MCHC (RBC) [Mass/Vol] 32.5 g/dL 32-36 [facility] Platelet mean volume (Bld) [Entitic vol] 10.6 fL 6.2-12.0 [facility] Platelets (Bld) [#/Vol] 247 10*3/uL 150-450 [facility] No Panel InformationOrdered By: Willie Regalado on 09-11-2023 Estimated GFR (MDRD) Amer 79 mL/min >60 [facility] Comment on above: GFR Calc Estimated GFR (MDRD) Non-Af Amer 66 mL/min >60 [facility] Comment on above: Non- GFR Calc RBC Auto (Bld) [#/Vol]Ordere d By: Willie Regalado on 09-11-2023 RBC (Bld) [#/Vol] 3.90 10*6/uL 4.6-6.2 [facility] Serum or plasma calcium emerita urement (mass/volume)Ordered By: Willie Regalado on 09-11-2023 Calcium [Mass/Vol] 9.0 mg/dL 8.5-10.1 [facility] Serum or plasma creatinine m easurement (mass/volume)Ordered By: Willie Regalado on 09-11-2023 Creatinine [Mass/Vol] 1.23 mg/dL 0.70-1.30 [facility] Comment on above: The validity of the calculated GFR & GFRAA in patients over 70 years has not been determined. Clinical correlation is essential. Serum or plasma urea nitroge n measurement (mass/volume)Ordered By: Willie Regalado on 09-11-2023 Urea nitrogen [Mass/Vol] 19 mg/dL 7-18 [facility] Thin prep Papanicolaou smear with manual screeningOrdered By: Willie Regalado on 09-11-2023 Thin prep Papanicolaou smear with manual screening 4 5-15 [facility] Basophil percentageOrdered B y: Willie Regalado on 08-28-2023 Chloride [Moles/Vol] 109 mmol/L 98-107 [facility] Glucose [Mass/Vol] 101 mg/dL 74-106 [facility] Comment on above: Fasting Glucose resu lt from 100 to 125 mg/dL suggests IMPAIRED HOMEOSTASIS per A.D.A. criteria. Hemoglobin (Bld) [Mass/Vol] 11.9 g/dL 13.0-16.5 [facility] Potassium [Moles/Vol] 4.0 mmol/L 3.5-5.1 [facility] Sodium [Moles/Vol] 143 mmol/L 136-145 [facility] WBC (Bld) [#/Vol] 6.2 10*3/uL 4.4-11.0 [facility] Determination of erythrocyte mean corpuscular volume (MCV)Ordered By: Willie Regalado on 08-28-2023 MCV (RBC) [Entitic vol] 94.2 fL 80-94 [facility] Erythrocyte distribution wid th ratioOrdered By: Willie Regalado on 08-28-2023 Erythrocyte distribution width (RBC) [Ratio] 13.6 % 11.6-14.6 [facility] Erythrocyte distribution wid th standard deviationOrdered By: Willie Regalado on 08-28-2023 Erythrocyte distribution width (RBC) [Entitic vol] 46.5 fL 35.1-43.9 [facility] Hematocrit Auto (Bld) [Volum e fraction]Ordered By: Willie Regalado on 08-28-2023 Hematocrit (Bld) [Volume fraction] 36.0 % 40-54 [facility] - Chemistry and C hemistry - challengeOrdered By: Willie Regalado on 08-28-2023 CO2 [Moles/Vol] 28.0 mmol/L 21.0-32.0 [facility] Urea nitrogen/Creatinine [Mass ratio] 13.7 mg/mg 10-20 [facility] - Hematology and Cell countsOrdered By: Willie Regalado on 08-28-2023 MCH (RBC) [Entitic mass] 31.2 pg 27.0-32.0 [facility] MCHC (RBC) [Mass/Vol] 33.1 g/dL 32-36 [facility] Platelet mean volume (Bld) [Entitic vol] 10.1 fL 6.2-12.0 [facility] Platelets (Bld) [#/Vol] 279 10*3/uL 150-450 [facility] No Panel InformationOrdered By: Willie Regalado on 08-28-2023 Estimated GFR (MDRD) Amer 84 mL/min >60 [facility] Comment on above: GFR Calc Estimated GFR (MDRD) Non-Af Amer 70 mL/min >60 [facility] Comment on above: Non- GFR Calc RBC Auto (Bld) [#/Vol]Ordere d By: Willie Regalado on 08-28-2023 RBC (Bld) [#/Vol] 3.82 10*6/uL 4.6-6.2 [facility] Serum or plasma calcium emerita urement (mass/volume)Ordered By: Willie Regalado on 08-28-2023 Calcium [Mass/Vol] 9.2 mg/dL 8.5-10.1 [facility] Serum or plasma creatinine m easurement (mass/volume)Ordered By: Willie Regalado on 08-28-2023 Creatinine [Mass/Vol] 1.17 mg/dL 0.70-1.30 [facility] Comment on above: The validity of the calculated GFR & GFRAA in patients over 70 years has not been determined. Clinical correlation is essential. Serum or plasma urea nitroge n measurement (mass/volume)Ordered By: Willie Regalado on 08-28-2023 Urea nitrogen [Mass/Vol] 16 mg/dL 7-18 [facility] Thin prep Papanicolaou smear with manual screeningOrdered By: Willie Regalado on 08-28-2023 Thin prep Papanicolaou smear with manual screening 6 -15 [facility] No Panel InformationOrdered By: Willie Regalado on 07-13-2023 Thyroid Stimulating Hormone (TSH) 1.78 uIU/mL 0.358-3.74 [facility] Basophil percentageOrdered B y: Willie Regalado on 07-03-2023 Bilirubin [Mass/Vol] 0.30 mg/dL 0.20-1.00 [facility] Comment on above: For patients on eltr ombopag therapy, use of Dimension [place] TBIL is not recommended. Chloride [Moles/Vol] 106 mmol/L 98-107 [facility] Cholesterol [Mass/Vol] 145 mg/dL <200 [facility] Comment on above: <200 mg/dL Desirable 200-240 mg/dL Borderline >240 mg/dL High Risk Glucose [Mass/Vol] 101 mg/dL 74-106 [facility] Comment on above: Fasting Glucose resu lt from 100 to 125 mg/dL suggests IMPAIRED HOMEOSTASIS per A.D.A. criteria. Potassium [Moles/Vol] 3.8 mmol/L 3.5-5.1 [facility] Protein [Mass/Vol] 7.3 g/dL 6.4-8.2 [facility] Sodium [Moles/Vol] 138 mmol/L 136-145 [facility] Triglyceride [Mass/Vol] 99 mg/dL <199 [facility] Comment on above: The drugs N-Acetylcy steine and Metamizole may falsely depress this assay.Serum Triglycerides Reference Interval Normal <150 mg/dL Borderline high 150 - 199 mg/dL High 200 - 499 mg/dL Very High > or = 500 mg/dL WBC (Bld) [#/Vol] 7.8 10*3/uL 4.4-11.0 [facility] Blood erythrocytes count (nu mber/volume)Ordered By: Willie Regalado on 07-03-2023 RBC (Bld) [#/Vol] 4.31 10*6/uL 4.6-6.2 [facility] Blood hemoglobin measurement (mass/volume)Ordered By: Willie Regalado on 07-03-2023 Hemoglobin (Bld) [Mass/Vol] 12.8 g/dL 13.0-16.5 [facility] Blood platelet mean volumeOr dered By: Willie Regalado on 07-03-2023 Platelet mean volume (Bld) [Entitic vol] 10.7 fL 6.2-12.0 [facility] Determination of erythrocyte mean corpuscular volume (MCV)Ordered By: Willie Regalado on 07-03-2023 MCV (RBC) [Entitic vol] 92.3 fL 80-94 [facility] Hematocrit Auto (Bld) [Volum e fraction]Ordered By: Willie Regalado on 07-03-2023 Hematocrit (Bld) [Volume fraction] 39.8 % 40-54 [facility] Laboratory - Chemistry and C hemistry - challengeOrdered By: Willie Regalado on 07-03-2023 ALP [Catalytic activity/Vol] 82 U/L 45-117 [facility] ALT [Catalytic activity/Vol] 26 U/L 16-61 [facility] CO2 [Moles/Vol] 26.0 mmol/L 21.0-32.0 [facility] Globulin (S) [Mass/Vol] 3.8 g/dL 2.2-4.2 [facility] Urea nitrogen/Creatinine [Mass ratio] 16.9 mg/mg 10-20 [facility] Laboratory - Hematology and Cell countsOrdered By: Willie Regalado on 07-03-2023 Erythrocyte distribution width (RBC) [Entitic vol] 48.9 fL 35.1-43.9 [facility] Erythrocyte distribution width (RBC) [Ratio] 14.3 % 11.6-14.6 [facility] MCH (RBC) [Entitic mass] 29.7 pg 27.0-32.0 [facility] MCHC Auto (RBC) [Mass/Vol]Or dered By: Willie Regalado on 07-03-2023 MCHC (RBC) [Mass/Vol] 32.2 g/dL 32-36 [facility] No Panel InformationOrdered By: Willie Regalado on 07-03-2023 Estimated GFR (MDRD) Amer 79 mL/min >60 [facility] Comment on above: GFR Calc Estimated GFR (MDRD) Non-Af Amer 65 mL/min >60 [facility] Comment on above: Non- GFR Calc Vitamin D 25-Hydroxy 18.0 ng/mL [facility] Comment on above: Vitamin D 25(OH) Sta tus Range Deficiency <20 ng/mL (50nmol/L) Insufficiency 20 - 30 ng/mL (50 - 75 nmol/L) Sufficiency 30 - 100 ng/mL (75 - 250 nmol/L) Toxicity >100 ng/mL (>250 nmol/L) Platelets bldOrdered By: Daniele Regalado on 07-03-2023 Platelets (Bld) [#/Vol] 201 10*3/uL 150-450 [facility] Serum or plasma albumin emerita urement (mass/volume)Ordered By: Willie Regalado on 07-03-2023 Albumin [Mass/Vol] 3.5 g/dL 3.2-5.0 [facility] Serum or plasma albumin/glob ulin mass ratioOrdered By: Willie Regalado on 07-03-2023 Albumin/Globulin [Mass ratio] 0.9 {ratio} 0.9-2.4 [facility] Serum or plasma calcium emerita urement (mass/volume)Ordered By: Willie Regalado on 07-03-2023 Calcium [Mass/Vol] 8.9 mg/dL 8.5-10.1 [facility] Serum or plasma cholesterol in HDL measurement (mass/volume)Ordered By: Willie Regalado on 07-03-2023 Cholesterol in HDL [Mass/Vol] 37 mg/dL >40 [facility] Comment on above: The drugs N-Acetylcy steine and Metamizole may falsely depress this assay. Reference Range HDL <40 mg/dL Low HDL Cholesterol HDL >or= 60 mg/dL High HDL Cholesterol Serum or plasma cholesterol in VLDL measurement (mass/volume)Ordered By: Willie Regalado on 07-03-2023 Cholesterol in VLDL [Mass/Vol] 20 mg/dL 5-40 [facility] Serum or plasma creatinine m easurement (mass/volume)Ordered By: Willie Regalado on 07-03-2023 Creatinine [Mass/Vol] 1.24 mg/dL 0.70-1.30 [facility] Comment on above: The validity of the calculated GFR & GFRAA in patients over 70 years has not been determined. Clinical correlation is essential. Serum or plasma folate measu rement (mass/volume)Ordered By: Willie Regalado on 07-03-2023 Folate [Mass/Vol] 11.80 ng/mL 3.1-55.4 [facility] Serum or plasma low density lipoprotein (LDL) cholesterol measurement (mass/volume)Ordered By: Willie Regalado on 07-03-2023 Cholesterol in LDL [Mass/Vol] 88 mg/dL 0-130 [facility] Serum or plasma urea nitroge n measurement (mass/volume)Ordered By: Willie Regaaldo on 07-03-2023 Urea nitrogen [Mass/Vol] 21 mg/dL 7-18 [facility] Thin prep Papanicolaou smear with manual screeningOrdered By: Willie Regalado on 07-03-2023 Thin prep Papanicolaou smear with manual screening 25 U/L 15-37 [facility] Thin prep Papanicolaou smear with manual screening 6 5-15 [facility] CARECOORDon 06-16-2023 [facility] Patient Choice Patient Name: ALVARO BARRIOSYAYA CEJA Date of : 1970 [facility] Basophil percentageOrdered B y: Willie Regalado on 06-05-2023 Bilirubin [Mass/Vol] 0.50 mg/dL 0.20-1.00 [facility] Comment on above: For patients on eltr ombopag therapy, use of Dimension [place] TBIL is not recommended. Chloride [Moles/Vol] 106 mmol/L 98-107 [facility] Glucose [Mass/Vol] 86 mg/dL 74-106 [facility] Potassium [Moles/Vol] 3.8 mmol/L 3.5-5.1 [facility] Protein [Mass/Vol] 6.4 g/dL 6.4-8.2 [facility] Sodium [Moles/Vol] 140 mmol/L 136-145 [facility] WBC (Bld) [#/Vol] 4.3 10*3/uL 4.4-11.0 [facility] Blood erythrocytes count (nu mber/volume)Ordered By: Willie Regalado on 06-05-2023 RBC (Bld) [#/Vol] 3.93 10*6/uL 4.6-6.2 [facility] Blood hemoglobin measurement (mass/volume)Ordered By: Willie Regalado on 06-05-2023 Hemoglobin (Bld) [Mass/Vol] 12.1 g/dL 13.0-16.5 [facility] Blood platelet mean volumeOr dered By: Willie Regalado on 06-05-2023 Platelet mean volume (Bld) [Entitic vol] 10.4 fL 6.2-12.0 [facility] Determination of erythrocyte mean corpuscular volume (MCV)Ordered By: Willie Regalado on 06-05-2023 MCV (RBC) [Entitic vol] 92.9 fL 80-94 [facility] Hematocrit Auto (Bld) [Volum e fraction]Ordered By: Willie Regalado on 06-05-2023 Hematocrit (Bld) [Volume fraction] 36.5 % 40-54 [facility] Laboratory - Chemistry and C hemistry - challengeOrdered By: Willie Regalado on 06-05-2023 ALP [Catalytic activity/Vol] 79 U/L 45-117 [facility] ALT [Catalytic activity/Vol] 19 U/L 16-61 [facility] CO2 [Moles/Vol] 33.0 mmol/L 21.0-32.0 [facility] Globulin (S) [Mass/Vol] 3.7 g/dL 2.2-4.2 [facility] Urea nitrogen/Creatinine [Mass ratio] 14.4 mg/mg 10-20 [facility] Laboratory - Hematology and Cell countsOrdered By: Willie Regalado on 06-05-2023 Erythrocyte distribution width (RBC) [Entitic vol] 47.2 fL 35.1-43.9 [facility] Erythrocyte distribution width (RBC) [Ratio] 13.7 % 11.6-14.6 [facility] MCH (RBC) [Entitic mass] 30.8 pg 27.0-32.0 [facility] MCHC Auto (RBC) [Mass/Vol]Or dered By: Willie Regalado on 06-05-2023 MCHC (RBC) [Mass/Vol] 33.2 g/dL 32-36 [facility] No Panel InformationOrdered By: Willie Regalado on 06-05-2023 Estimated GFR (MDRD) Amer 78 mL/min >60 [facility] Comment on above: GFR Calc Estimated GFR (MDRD) Non-Af Amer 65 mL/min >60 [facility] Comment on above: Non- GFR Calc Platelets bldOrdered By: Daniele Regalado on 06-05-2023 Platelets (Bld) [#/Vol] 366 10*3/uL 150-450 [facility] Serum or plasma albumin emerita urement (mass/volume)Ordered By: Willie Regalado on 06-05-2023 Albumin [Mass/Vol] 2.7 g/dL 3.2-5.0 [facility] Serum or plasma albumin/glob ulin mass ratioOrdered By: Willie Regalado on 06-05-2023 Albumin/Globulin [Mass ratio] 0.7 {ratio} 0.9-2.4 [facility] Serum or plasma calcium emerita urement (mass/volume)Ordered By: Willie Regalado on 06-05-2023 Calcium [Mass/Vol] 8.5 mg/dL 8.5-10.1 [facility] Serum or plasma creatinine m easurement (mass/volume)Ordered By: Willie Regalado on 06-05-2023 Creatinine [Mass/Vol] 1.25 mg/dL 0.70-1.30 [facility] Comment on above: The validity of the calculated GFR & GFRAA in patients over 70 years has not been determined. Clinical correlation is essential. Serum or plasma urea nitroge n measurement (mass/volume)Ordered By: Willie Regalado on 06-05-2023 Urea nitrogen [Mass/Vol] 18 mg/dL 7-18 [facility] Thin prep Papanicolaou smear with manual screeningOrdered By: Willie Regalado on 06-05-2023 Thin prep Papanicolaou smear with manual screening 11 U/L 15-37 [facility] Thin prep Papanicolaou smear with manual screening 1 5-15 [facility] Basic metabolic 1998 panelon 05-22-2023 Anion gap [Moles/Vol] 20 mmol/L High 3 - 13 mmol/L [facility] Calcium [Mass/Vol] 9.9 mg/dL 8.4 - 10. 4 mg/dL [facility] Chloride [Moles/Vol] 101 mmol/L 98 - 10 7 mmol/L [facility] CO2 [Moles/Vol] 21 mmol/L Low 22 - 30 mmol/L [facility] Creatinine [Mass/Vol] 2.72 mg/dL High 0.66 - 1.25 mg/dL [facility] GFR/1.73 sq M.predicted MDRD (S/P/Bld) [Vol rate/Area] 27.4 mL/min/{1.73_m2} Low - PINF [facility] Comment on above: Calculation based on the Chronic Kidney Disease Epidemiology Collaboration (CKD-EPI) equation refit without adjustment for race Glucose [Mass/Vol] 111 mg/dL High 70 - 100 mg/dL [facility] Interpretation and review of laboratory results Abnormal [facility] Potassium [Moles/Vol] 4.4 mmol/L 3.5 - 5.1 mmol/L [facility] Sodium [Moles/Vol] 141 mmol/L 135 - 145 mmol/L [facility] Urea nitrogen [Mass/Vol] 82 mg/dL High 9 - 20 mg/d L [facility] CARECOORD 05-22-2023 [place]ORD Next Site of Care Admission Date: 05/21/2023 08:39 PM Patient Name: SADIE BARRIOS JR Location: [address] [id number] Date of : 1970 ---- Placement Information ---- Referral Type:Group Home Acute Care [facility] - New Referral ID:[id number] Provider Name:[facility] Address 1:[address] Address 2: City:[place] Selection Factors:Patient/Fam watson Choice State:[facility] [place] S/W, follow up I did visit patient in room to notify of transport time to [facility]. Patient did provide me with the correct number to his father, , to notify of transport tonight. I did speak with patient Father. He is aware and in agreement with transfer to [facility] [place]. Patient Father did note the patient the patient was active with [facility]. The Father could not tell me any contact other than the name Elisabeth I did call [facility] to inquire about Services. I was informed that they discharged the patient on 03/30, due to some issues with patient Father being verbal with their aides. [facility] did inform me that the patient is active with [facility] and his Casemanager is Elisabeth Duque at . I did call Elisabeth, I did LVM informing her of patient transfer this evening and did leave my contact info. Normal [facility] CAR[place]OORD S/W, transport Patient discharged to [facility] [place]. Transport set via [facility] at 630p. 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 DC med list sent via [facility] to [facility]. I did visit patyient in his room to notify of transport time. Normal [facility] CKon 05-22-2023 CK [Catalytic activity/Vol] 7331 U/L High 30-170 [facility] Comment on above: Performed By: #### L [id number], [id number] ####Jailor: SO SOSA ([phone])[facility] ([facility])[address] [place] [address] CK [Catalytic activity/Vol] 7331 U/L High 30 - 170 U/L [facility] COMPLETE URINALYSISon 2022 BACTERIA (#/HPF) IN URINE Few Abnormal Negative [facility] Comment on above: Performed By: #### L [id number] ####Jailor: SO SOSA ([phone])[facility] ([facility])[address] [place] [address] BILIRUBIN, TOTAL PRESENCE IN URINE Negative Normal Negative [facility] Comment on above: Performed By: #### L [id number] ####Jailor: SO FRANKSNAI ([phone])[facility] ([facility])[address] Clarity (U) Slightly Cloudy Abnormal [facility] Comment on above: Performed By: #### L [id number] ####Jailor: SO FRANKSNAI ([phone])[facility] ([facility])[address] Color (U) Yellow Normal Lt. Yellow [facility] Comment on above: Performed By: #### L [id number] ####Jailor: SO SOSA ([phone])[facility] ([facility])[address] GLUCOSE (MG/DL) IN URINE Normal Normal Normal (<70 ) [facility] Comment on above: Performed By: #### L [id number] ####Jailor: SO SOSA ([phone])[facility] ([facility])[address] GRANULAR CASTS (#/LPF) IN URINE 3-5 Abnormal Negative [facility] Comment on above: Performed By: #### L [id number] ####Jailor: SO FRANKSNAI ([phone])[facility] ([facility])[address] HEMOGLOBIN PRESENCE IN URINE >1.0 Abnormal Negative [facility] Comment on above: Performed By: #### L [id number] ####Jailor: SO FRANKSNAI ([phone])[facility] ([facility])[address] HYALINE CASTS (#/LPF) IN URINE SEDIMENT BY MICROSCOPY 11-25 Abnormal Negative [facility] Comment on above: Performed By: #### L [id number] ####Jailor: SO SOSA ([phone])[facility] ([facility])[address] [place] [address] [place] Ketones Ql (U) Trace Abnormal Negative [facility] Comment on above: Performed By: #### L [id number] ####Jailor: SO SOSA ([phone])[facility] ([facility])[address] LEUKOCYTE ESTERASE PRESENCE IN URINE BY TEST STRIP Negative Normal Negative [facility] Comment on above: Performed By: #### L [id number] ####Jailor: SO SOSA ([phone])[facility] ([facility])[address] MUCUS (#/LPF) IN URINE SEDIMENT Moderate Abnormal Negative [facility] Comment on above: Performed By: #### L [id number] ####Jailor: SO SOSA ([phone])[facility] NITRITE PRESENCE IN URINE Negative Normal Negative [facility] Comment on above: Performed By: #### L [id number] ####Jailor: SO SOSA ([phone])[facility] ([facility])[address] pH (U) 5.5 [pH] Normal 5.0-8.0 [facility] Comment on above: Performed By: #### L [id number] ####Jailor: SO SOSA ([phone])[facility] ([facility])[address] Protein (U) [Mass/Vol] 50 mg/dL Abnormal Negative [facility] Comment on above: Performed By: #### L [id number] ####Jailor: SO SOSA ([phone])[facility] ([facility])[address] [place] [address] [place] RBC (#/HPF) IN URINE SEDIMENT 0-2 Normal 0-2 [facility] Comment on above: Performed By: #### L [id number] ####Jailor: SO SOSA ([phone])[facility] ([facility])[address] Specific gravity (U) [Rel density] 1.023 Normal 1.005-1.030 [facility] Comment on above: Performed By: #### L [id number] ####Jailor: SO SOSA ([phone])[facility])[address] SQUAMOUS EPITHELIAL CELLS (#/HPF) IN URINE SEDIMENT 0-2 Normal 3-5 [facility] Comment on above: Performed By: #### L [id number] ####Jailor: SO IAN ([phone])[facility] ([facility])[address] [place] [address] UROBILINOGEN (MG/DL) IN URINE Normal Normal Normal (0-1) [facility] Comment on above: Performed By: #### L [id number] ####Jailor: SO IAN ([phone])[facility] ([facility])[address] [place] [address] WBC (LEUKOCYTE) (#/HPF) IN URINE SEDIMENT 3-5 Normal 0-5 [facility] Comment on above: Performed By: #### L [id number] ####Jailor: SO SOSA ([phone])[facility] ([facility])[address] [place] [address] CT ABDOMEN PELVIS WO IV CONT [facility] 05-22-2023 CT ABDOMEN PELVIS WO IV CONTRAST Patient Name: SADIE BARRIOS JR : 1970 Exam Date/Time: 05/21/2023 22:38 Procedure: CT ABDOMEN PELVIS WO IV CONTRAST Ordering Provider: CLAROS NICHOLAS Reason For Exam: fall,anterior chest/abd injury and wound INDICATION: 52-year-old; fall; anterior chest and abdominal wall pain Scan Parameters: Multiple axial 1mm images were obtained of the chest and 3mm images of the abdomen and pelvis. Coronal and sagittal reconstructions were reviewed as well. Dose reduction was employed with automated exposure control. CONTRAST: No IV contrast COMPARISON: No comparison CT chest, abdomen, pelvis FINDINGS: CHEST: Mild centrilobular emphysema is present. There is no pneumothorax and no confluent consolidation. Scattered subsegmental atelectasis is present. The osseous structures appear intact. The sternum is intact. The thoracic vertebral bodies are intact. The ribs appear intact. There is curvature of the thoracic spine. The thyroid gland contour is normal. The airway is patent. The esophagus is decompressed. The heart is not enlarged. There is no mediastinal or hilar adenopathy. No axillary adenopathy. The patient's hand overlies the thorax, history: Artifact and limiting evaluation. ABDOMEN AND PELVIS: The liver, gallbladder, pancreas, spleen, and adrenal glands are within normal limits. Mild hyperplasia of the adrenal glands without a discrete nodule. There is no hydronephrosis. There is no obstructing ureteral calculus. The bladder contour is within normal limits. The prostate gland is enlarged, correlate with PSA. Fecal retention is present within a distended rectum. The appendix is not clearly identified in the right lower quadrant. Lack of GI contrast likely of intra-abdominal fat limits overall evaluation. A small sliding-type hiatal hernia is present. The lumbar vertebral bodies are intact. The pelvis appears intact. There is curvature of the thoracic spine. A sclerotic focus left sacrum, possible bone island. The aorta contour is within normal limits. The paraspinous muscles are within normal limits. IMPRESSION: CHEST: 1. No acute intrathoracic process. 2. Emphysema. ABDOMEN/PELVIS: No acute intra-abdominal or intrapelvic process, as above. Report Dictated on Electronically Signed By: Radha Farrell MD Electronically Signed Date/Time: 05/21/2023 11:02 PM EST C/o fall earlier today. Pt on ground for unknown amount of time. Voice is raspy. Pt is A&Ox4 a baseline, pt lives alone at home. Normal [facility] CT CERVICAL SPINE WO IV CONT [facility] 05-22-2023 CT CERVICAL SPINE WO IV CONTRAST Patient Name: SADIE BARRIOS JR : 1970 Exam Date/Time: 05/21/2023 22:37 Procedure: CT CERVICAL SPINE WO IV CONTRAST Ordering Provider: CLAROS NICHOLAS Reason For Exam: fall, head injury CT HEAD: CLINICAL INDICATION: Trauma TECHNIQUE: Transaxial CT sequence performed through the head with 3 mm reconstruction. Sagittal and Coronal reconstruction images included. Dose reduction employed with automated exposure control. COMPARISON: 10/09/2017 FINDINGS: Ventricles and Extra-axial spaces: Generalized enlargement of the ventricles and sulci is noted. No abnormal extracerebral collection identified. Cerebral and cerebellar parenchyma: Periventricular low attenuation areas are noted bilaterally, corresponding to chronic microvascular ischemic change, although degenerative or demyelinating changes may be considered. No additional focal mass lesion or evidence for acute infarct is identified throughout the cerebrum or cerebellum. Brainstem: Normal Visualized Paranasal sinuses: Normal. Mastoid air cells: Normal Visualized Orbits: Normal Calvarium and skull base: Normal CT CERVICAL SPINE: TECHNIQUE: Transaxial sequence through the cervical spine. Coronal and sagittal reconstructions included. Dose reduction was employed with automated exposure control. COMPARISON: None FINDINGS: Cervical vertebrae and joints: No fracture, subluxation or other malalignment. Normal cervical lordosis is observed. Facet joints and uncovertebral joints are unremarkable. No suspicious osseous lesion identified. Intervertebral disc spaces and spinal canal: Multilevel discogenic degenerative changes of the cervical spine is noted with anterior predominant osteophytosis observed. No bony encroachment upon the cervical spinal canal. Soft tissues: Surrounding soft tissues of the neck are unremarkable on this noncontrast study. Other: Lung apices are unremarkable. IMPRESSION: Diminished cerebral volume and evidence of chronic microvascular ischemic, degenerative, and/or demyelinating change without acute intracranial abnormality. No acute abnormality identified throughout the cervical spine. Multilevel degenerative changes of the cervical spine as discussed. Report Dictated on Electronically Signed By: Warner Taylor MD Electronically Signed Date/Time: 05/21/2023 10:52 PM EST C/o fall earlier today. Pt on ground for unknown amount of time. Voice is raspy. Pt is A&Ox4 a baseline, pt lives alone at home. Normal [facility] CT CHEST WO IV CONTRASTon CT CHEST WO IV CONTRAST [facility] 1970 [id number] Exam Date/Time: 05/21/2023 22:37 Procedure: CT CHEST WO IV CONTRAST Ordering Provider: CLAROS NICHOLAS Reason For Exam: fall,anterior chest/abd injury and wound INDICATION: 52-year-old; fall; anterior chest and abdominal wall pain Scan Parameters: Multiple axial 1mm images were obtained of the chest and 3mm images of the abdomen and pelvis. Coronal and sagittal reconstructions were reviewed as well. Dose reduction was employed with automated exposure control. CONTRAST: No IV contrast COMPARISON: No comparison CT chest, abdomen, pelvis FINDINGS: CHEST: Mild centrilobular emphysema is present. There is no pneumothorax and no confluent consolidation. Scattered subsegmental atelectasis is present. The osseous structures appear intact. The sternum is intact. The thoracic vertebral bodies are intact. The ribs appear intact. There is curvature of the thoracic spine. The thyroid gland contour is normal. The airway is patent. The esophagus is decompressed. The heart is not enlarged. There is no mediastinal or hilar adenopathy. No axillary adenopathy. The patient's hand overlies the thorax, history: Artifact and limiting evaluation. ABDOMEN AND PELVIS: The liver, gallbladder, pancreas, spleen, and adrenal glands are within normal limits. Mild hyperplasia of the adrenal glands without a discrete nodule. There is no hydronephrosis. There is no obstructing ureteral calculus. The bladder contour is within normal limits. The prostate gland is enlarged, correlate with PSA. Fecal retention is present within a distended rectum. The appendix is not clearly identified in the right lower quadrant. Lack of GI contrast likely of intra-abdominal fat limits overall evaluation. A small sliding-type hiatal hernia is present. The lumbar vertebral bodies are intact. The pelvis appears intact. There is curvature of the thoracic spine. A sclerotic focus left sacrum, possible bone island. The aorta contour is within normal limits. The paraspinous muscles are within normal limits. IMPRESSION: CHEST: 1. No acute intrathoracic process. 2. Emphysema. ABDOMEN/PELVIS: No acute intra-abdominal or intrapelvic process, as above. Report Dictated on Electronically Signed By: Radha Farrell MD Electronically Signed Date/Time: 05/21/2023 11:02 PM EST C/o fall earlier today. Pt on ground for unknown amount of time. Voice is raspy. Pt is A&Ox4 a baseline, pt lives alone at home. Normal [facility] CT HEAD WO IV CONTRASTon CT HEAD WO IV CONTRAST Patient Name: SADIE BARRIOS JR : 1970 [facility]#: [id number] Exam Date/Time: 05/21/2023 22:36 Procedure: CT HEAD WO IV CONTRAST Ordering Provider: CLAROS NICHOLAS Reason For Exam: fall, head injury CT HEAD: CLINICAL INDICATION: Trauma TECHNIQUE: Transaxial CT sequence performed through the head with 3 mm reconstruction. Sagittal and Coronal reconstruction images included. Dose reduction employed with automated exposure control. COMPARISON: 10/09/2017 FINDINGS: Ventricles and Extra-axial spaces: Generalized enlargement of the ventricles and sulci is noted. No abnormal extracerebral collection identified. Cerebral and cerebellar parenchyma: Periventricular low attenuation areas are noted bilaterally, corresponding to chronic microvascular ischemic change, although degenerative or demyelinating changes may be considered. No additional focal mass lesion or evidence for acute infarct is identified throughout the cerebrum or cerebellum. Brainstem: Normal Visualized Paranasal sinuses: Normal. Mastoid air cells: Normal Visualized Orbits: Normal Calvarium and skull base: Normal CT CERVICAL SPINE: TECHNIQUE: Transaxial sequence through the cervical spine. Coronal and sagittal reconstructions included. Dose reduction was employed with automated exposure control. COMPARISON: None FINDINGS: Cervical vertebrae and joints: No fracture, subluxation or other malalignment. Normal cervical lordosis is observed. Facet joints and uncovertebral joints are unremarkable. No suspicious osseous lesion identified. Intervertebral disc spaces and spinal canal: Multilevel discogenic degenerative changes of the cervical spine is noted with anterior predominant osteophytosis observed. No bony encroachment upon the cervical spinal canal. Soft tissues: Surrounding soft tissues of the neck are unremarkable on this noncontrast study. Other: Lung apices are unremarkable. IMPRESSION: Diminished cerebral volume and evidence of chronic microvascular ischemic, degenerative, and/or demyelinating change without acute intracranial abnormality. No acute abnormality identified throughout the cervical spine. Multilevel degenerative changes of the cervical spine as discussed. Report Dictated on Electronically Signed By: Warner Taylor MD Electronically Signed Date/Time: 05/21/2023 10:52 PM EST C/o fall earlier today. Pt on ground for unknown amount of time. Voice is raspy. Pt is A&Ox4 a baseline, pt lives alone at home. Normal [facility] Consulton 05-22-2023 Consult [facility] Wound Care CONSULT Note Sadie Barrios AGE: 52 y.o. GENDER: male : 1970 Subjective: HISTORY of PRESENT ILLNESS HPI Sadie Barrios is a 52 y.o. male with MS who presents for a wound consult. Pt was hospitalized on 05/21/23 with renal insufficiency. States he fell and sustained multiple skin wounds. PAST MEDICAL HISTORY Active Ambulatory Problems Diagnosis Date Noted No Active Ambulatory Problems Resolved Ambulatory Problems Diagnosis Date Noted No Resolved Ambulatory Problems Past Medical History: Diagnosis Date Hyperlipidemia Hypertension MS (multiple sclerosis) (HCC) PAST SURGICAL HISTORY No past surgical history on file. FAMILY HISTORY Family History Problem Relation Name Age of Onset Diabetes Father SOCIAL HISTORY Social History Tobacco Use Smoking status: Some Days Smokeless tobacco: Never Tobacco comments: Quit smokin-2 cigarettes every 2-3 days Substance Use Topics Alcohol use: No Drug use: No ALLERGIES No Known Allergies REVIEW OF SYSTEMS Pertinent items are noted in HPI. Objective: BP 137/72 (BP Location: Right arm, Patient Position: Sitting) Pulse 80 Temp 36.8 ?C (98.2 ?F) (Temporal) Resp 17 Ht 5' 9 (1.753 m) Wt 130 lb 6.4 oz (59.1 kg) SpO2 99% BMI 19.26 kg/m? PHYSICAL EXAM General appearance: in no apparent distress, non-toxic, in no respiratory distress and acyanotic, alert, normal vitals, and cooperative Skin: warm and dry Pulmonary: Normal effort, no respiratory distress, no cyanosis Abdomen: soft, nontender, and nondistended Extremities: no cyanosis, clubbing or edema W: LABS CBC: Lab Results Component Value Date WBC 12.2 (H) 05/21/2023 HGB 17.4 05/21/2023 HCT 51.7 05/21/2023 MCV 90.0 05/21/2023 PLT 206 05/21/2023 BMP: Lab Results Component Value Date NA 143 05/21/2023 NA 141 05/21/2023 K 4.3 05/21/2023 K 4.4 05/21/2023 CL 100 05/21/2023 CL 101 05/21/2023 CO2 25 05/21/2023 CO2 21 (L) 05/21/2023 BUN 85 (H) 05/21/2023 BUN 82 (H) 05/21/2023 CREATININE 2.77 (H) 05/21/2023 CREATININE 2.72 (H) 05/21/2023 PT/INR: Lab Results Component Value Date PROTIME 12.3 (H) 05/21/2023 INR 1.1 05/21/2023 Assessment/Plan: Abrasions of R torso, R elbow, B lower legs, B feet, L heel, L arm Xeroform and foam border to all wounds. Recommend to follow up at [facility] wound care [facility] after hospital discharge. Thank you for the consult! I personally obtained the smith and critical portions of the history and physical exam. I reviewed the labs, imaging studies, and electronic medical record. I reviewed the chart documentation and discussed the patient with treatment team members. I have edited the note to reflect my clinical findings and my assessment and plan. Please note, the time of this note does not reflect the time I saw this patient today, but the time of this documentaton. Portions of this note including HPI, ROS, impression/plan, and examination may have been copied forward from admission to today as to provide important historical information essential in contributing to medical decision making. Documentation has been reviewed and edited as necessary to support clinical decision making for today's visit and to reflect my own independent evaluation of this patient. Decision making for today's visit and to reflect my own independent evaluation of this patient. Normal [facility] Consult Vancomycin therapy has been discontinued by Dr. Powers on 05/22/23. Thank you for the consult. Pharmacy signing off for vancomycin dosing. Fermín Langley [facility], PharmD Date: 05/22/23 Time: 11:26 AM Normal [facility] Consult Pharmacy Note Vancomycin Consult Non-ALLERGIST/IMMUNOLOGIST Sadie Barrios is a 52 y.o. year old male ordered vancomycin for SSTI; consult from Dr. Gonzalez to manage therapy. Patient Active Problem List Diagnosis Date Noted Renal insufficiency 05/22/2023 Patient has no known allergies. CREATININE Date Value Ref Range Status 05/21/2023 2.77 (H) 0.66 - 1.25 mg/dL Final 05/21/2023 2.72 (H) 0.66 - 1.25 mg/dL Final UREA NITROGEN Date Value Ref Range Status 05/21/2023 85 (H) 9 - 20 mg/dL Final 05/21/2023 82 (H) 9 - 20 mg/dL Final Auto WBC Date Value Ref Range Status 05/21/2023 12.2 (H) 3.6 - 10.7 10*3/uL Final Ht Readings from Last 1 Encounters: 05/22/23 1.753 m (5' 9) Wt Readings from Last 1 Encounters: 05/22/23 59.1 kg (130 lb 6.4 oz) Plan: Will initiate vancomycin 750 mg IV every 24 hours based on predicted AUC of 537 mg/L.hr . Goal AUC is 400-600 mg/L.hr. Random level will be scheduled for 05/23@0600. Thank you for the consult. Will continue to follow. Normal [facility] DRUGS OF ABUSEon 05-22-2023 AMPHETAMINE SCREEN Negative Normal [facility] Comment on above: Performed By: #### L [id number] #### Jailor: OS SOSA ([id number]) [facility] ([facility]) [address] [place] [address] BARBITURATES SCREEN Negative Normal [facility] Comment on above: Performed By: #### L [id number] #### Jailor: SO SOSA ([id number]) [facility] ([facility]) [address] [place] [address] BENZODIAZEPINE SCREEN Negative Normal [facility] Comment on above: Performed By: #### L [id number] #### Jailor: SO SOSA ([id number]) [facility] ([facility]) [address] [place] [address] COCAINE METAB. SCREEN Negative Normal [facility] Comment on above: Performed By: #### L [id number] #### Jailor: SO SOSA ([id number]) [facility] ([facility]) [address] METHADONE SCREEN Negative [facility] Comment on above: Performed By: #### L [id number] #### Jailor: SO SOSA ([id number]) [facility] ([facility]) [address] OPIATES SCREEN Negative Normal [facility] Comment on above: Performed By: #### L [id number] #### Jailor: SO SOSA ([id number]) [facility] [address] OXYCODONE SCREEN Negative [facility] Comment on above: Performed By: #### L [id number] #### Jailor: SO SOSA ([id number]) [facility] ([facility] [address] PHENCYCLIDINE SCREEN Negative Normal [facility] Comment on above: Result Comment: QUYEN Callahan COMMENTS: The expected value for all of the drugs listed above is Negative. The following drugs or drug groups have been screened for by Immunoassay at the following thresholds: Amphetamine class (1000 ng/mL) Barbiturates (200 ng/mL) Benzodiazepines (200 ng/mL) Cocaine (300 ng/mL) Methadone (300 ng/mL) Opiates (300 ng/mL) Oxycodone (100 ng/mL) PCP (25 ng/mL) NOTE: These results are for medical treatment only. Analysis performed using non-forensic procedures. POSITIVE results are NOT confirmed by a more specific alternative method unless requested. If confirmation is needed, request confirmation under separate order. Performed By: #### L [id number] #### Jailor: SO SOSA ([id number]) [facility] ([facility]) [address] Drug screen panel, emergency Ordered By: Donny Meek on 05-22-2023 Amphetamines Screen method >1000 ng/mL Ql (U) Negative [facility] Barbiturates Screen method >200 ng/mL Ql (U) Negative [facility] Benzodiazepines Ql (U) Negative [facility] COCAINE METAB. SCREEN Negative [facility] Methadone Screen Ql (U) Negative [facility] Opiates Screen Ql (U) Negative [facility] oxyCODONE Ql (U) Negative [facility]th Phencyclidine Ql (U) Negative [facility] The expected value for all of the drugs listed above is Negative. The following drugs or drug groups have been screened for by Immunoassay at the following thresholds: Amphetamine class (1000 ng/mL) Barbiturates (200 ng/mL) Benzodiazepines (200 ng/mL) Cocaine (300 ng/mL) Methadone (300 ng/mL) Opiates (300 ng/mL) Oxycodone (100 ng/mL) PCP (25 ng/mL) NOTE: These results are for medical treatment only. Analysis performed using non-forensic procedures. POSITIVE results are NOT confirmed by a more specific alternative method unless requested. If confirmation is needed, request confirmation under separate order. [facility] ECG 12 leadon 05-22-2023 Heart rate 78 /min bpm [facility] P [place] 76 degrees [facility] PA Interval 172 ms [facility] QRS [place] 24 degrees [facility] QRSD Interval 71 ms [facility] QT Interval 390 ms [facility] QTC Interval 437 ms [facility] T Wave [place] 32 degrees [facility] Sinus rhythm Atrial premature complexes Borderline low voltage, extremity leads No previous ECG available for comparison Electronically Signed On 05-22-2023 0:19:28 EST by Levy Claros Levy Salas MD - 05/22/2023 IMPRESSION: Sinus rhythm Atrial premature complexes Borderline low voltage, extremity leads No previous ECG available for comparison Electronically Signed On 05-22-2023 0:19:28 EST by Levy Claros [facility] ECG 12-LEADon 05-22-2023 ECG 12-LEAD IMPRESSION: Sinus rhythm Atrial premature complexes Borderline low voltage, extremity leads No previous ECG available for comparison Electronically Signed On 05-22-2023 0:19:28 EST by Levy Claros [facility] ED Nursing Noteon 05-22-2023 ED Nursing Note Pt was incontinent of urine on the bed and not into the urinal. Pt states he did not know he urinated. Pt still refusing straight catheterization. Pt agreeable to external catheter placement. Louisa Love RN 05/22/23 0123 Normal [facility] ED Nursing Note Pt tried using urinal to give sample. Pt unable to go at this time. Pt refusing straight catheterization. Pt requesting to keep urinal so he can keep trying to go. Louisa Love RN 05/22/23 0121 Normal [facility] LACTIC ACID WITH REFLEXon Lactate [Moles/Vol] 1.2 mmol/L Normal 0.7-2.0 [facility] Comment on above: Performed By: #### L [id number] #### Jailor: SO SOSA ([id number]) [facility] ([facility]) [address] [place] [address] Lactate [Moles/Vol] 2.1 mmol/L High 0.7-2.0 [facility] Comment on above: Performed By: #### L [id number] #### Jailor: SO SOSA ([id number]) [facility] ([facility]) [address] [place] [address] Lactic acid with reflexon Interpretation and review of laboratory results Normal [facility] Lactate [Moles/Vol] 1.2 mmol/L 0.7 - 2. 0 mmol/L [facility] Interpretation and review of laboratory results Abnormal [facility] Lactate [Moles/Vol] 2.1 mmol/L High 0.7 - 2. 0 mmol/L [facility] No Panel Informationon 05-22 Interpretation and review of laboratory results Abnormal [facility] Progress Noteon 05-22-2023 Progress Note RN attempted to call report x2, no answer from nurse station. Normal [facility] TROPONIN Ion 05-22-2023 Troponin I.cardiac [Mass/Vol] 0.079 ng/mL High <0.034 [facility] Comment on above: Result Comment: QUYEN Callahan COMMENTS: Patients with high levels of Biotin oral intake (ie >5 mg/day) may have falsely decreased Troponin levels. Performed By: #### L [id number] ####Jailor: SO SOSA ([id number])[facility] ([facility])[address] [place] [address] Troponin - One Time order ON Cruz 05-22-2023 Troponin I.cardiac [Mass/Vol] 0.079 ng/mL High NINF - 0.034 ng/mL [facility] Troponin I.cardiac [Mass/Vol ]on 05-22-2023 Patients with high levels of Biotin oral intake (ie >5 mg/day) may have falsely decreased Troponin levels. [facility] Urinalysis complete panel (U )Ordered By: Martha Mendez on 05-22-2023 Bacteria LM.HPF (Urine sed) [#/Area] Few Abnormal Negative /HPF [facility] Bilirubin Ql (U) Negative Negative mg/dL [facility] Clarity (U) Slightly Cloudy Abnormal Clear [facility] alth Color (U) Yellow Lt. Yellow [facility] Epithelial cells.squamous LM.HPF (Urine sed) [#/Area] 0-2 [facility] Glucose Ql (U) Normal Normal (<70) mg/dL [facility] Granular casts LM.HPF (Urine sed) [#/Area] 3-5 Abnormal Negative /LPF [facility] Hemoglobin Ql (U) >1.0 Abnormal Negative mg/dL [facility] Hyaline casts Auto (Urine sed) [#/Area] 11-25 Abnormal Negative /LPF [facility] Interpretation and review of laboratory results Abnormal [facility] Ketones (U) [Mass/Vol] Trace Abnormal Negat yue mg/dL [facility] Leukocyte esterase Test strip Ql (U) Negative Negative Reva/uL [facility] Mucus LM.HPF (Urine sed) [#/Area] Moderate Abnormal Negative /LPF [facility] Nitrite Ql (U) Negative Negative [facility] pH (U) 5.5 [pH] 5.0 - 8.0 pH [facility] Protein (U) [Mass/Vol] 50 mg/dL Abnormal Negative [facility] RBC LM.HPF (Urine sed) [#/Area] 0-2 [facility] Specific gravity (U) [Rel density] 1.023 1.005 - 1.030 [facility] Urobilinogen (U) [Mass/Vol] Normal Normal (0-1) mg/dL [facility] WBC LM.HPF (Urine sed) [#/Area] 3-5 [facility] BASIC METABOLIC PANELon 11-0 Anion gap [Moles/Vol] 20 mmol/L High 3-13 [facility] Comment on above: Performed By: #### L [id number] #### Jailor: SO SOSA ([id number]) [facility] ([facility]) [address] Calcium [Mass/Vol] 9.9 mg/dL Normal 8.4-10.4 [facility] Comment on above: Performed By: #### L [id number] #### Jailor: SO SOSA ([id number]) [facility] ([facility]) [address] Chloride [Moles/Vol] 101 mmol/L Normal 98-107 [facility] Comment on above: Performed By: #### L [id number] #### Jailor: SO SOSA ([id number]) [facility] ([facility]) [address] [place] [address] [place] CO2 [Moles/Vol] 21 mmol/L Low 22-30 [facility] Comment on above: Performed By: #### L [id number] #### Jailor: SO SOSA ([id number]) [facility] ([facility]) [address] [place] [address] [place] Creatinine [Mass/Vol] 2.72 mg/dL High 0.66-1.25 [facility] Comment on above: Performed By: #### L [id number] #### Jailor: SO SOSA ([id number]) [facility] ([facility]) [address] [place] [address] [place] GLOMERULAR FILTRATION RATE ML/MIN/1.73 SQ M.PREDICTED 27.4 mL/min/1.73m*2 Low >60.0 [facility] Comment on above: Result Comment: Calc ulation based on the Chronic Kidney Disease Epidemiology Collaboration (CKD-EPI) equation refit without adjustment for race Performed By: #### L [id number] #### Jailor: SO SOSA ([id number]) [facility] ([facility]) [address] Glucose [Mass/Vol] 111 mg/dL High 70-100 [facility] Comment on above: Performed By: #### L [id number] #### Jailor: SO SOSA ([id number]) [facility] ([facility]) [address] Potassium [Moles/Vol] 4.4 mmol/L Normal 3.5-5.1 [facility] Comment on above: Performed By: #### L [id number] #### Jailor: SO SOSA ([id number]) [facility] [address] Sodium [Moles/Vol] 141 mmol/L Normal 135-145 [facility] Comment on above: Performed By: #### L [id number] #### Jailor: SO SOSA ([id number]) [facility] ([facility]) [address] Urea nitrogen [Mass/Vol] 82 mg/dL High 9-20 [facility] Comment on above: Performed By: #### L [id number] #### Jailor: SO SOSA ([id number]) [facility] [address] BLOOD CULTUREon 05-21-2023 Bacteria identified Cx Nom (Bld) BLOOD CULTURE Reference No growth at 5 days ORDER COMMENTS: Blood Collection Site: Left Antecubital [ S = SUSCEPTIBLE R = RESISTANT I = INTERMEDIATE S-DD = Susceptible-dose dependent NS = Non-susceptible NO = No Interpretation ] Normal [facility] Comment on above: Performed By: #### L [id number] #### Jailor: CONSTANZA LYON ([id number]) [facility] ([facility]) [address] [place] [address] Bacteria identified Cx Nom (Bld) BLOOD CULTURE Reference No growth at 5 days ORDER COMMENTS: Blood Collection Site: Left Arm [ S = SUSCEPTIBLE R = RESISTANT I = INTERMEDIATE S-DD = Susceptible-dose dependent NS = Non-susceptible NO = No Interpretation ] Normal [facility] Comment on above: Performed By: #### L [id number] ####Jailor: CONSTANZA LYON ([id number])[facility] ([facility])[address] [place] [address] CBC (HEMOGRAM)on 05-21-2023 Erythrocyte distribution width (RBC) [Ratio] 14.2 % Normal 11.5-14.5 [facility] Comment on above: Performed By: #### L [id number] ####Jailor: SO SOSA ([id number])[facility]Anne ([facility])[address] [place] [address] ERYTHROCYTE MEAN CORPUSCULAR HEMOGLOBIN CONCENTRATION (G/DL) BY AUTOMATED 33.7 % Normal 32.0-36.0 [facility] Comment on above: Performed By: #### L [id number] ####Jailor: SO SOSA ([id number])[facility] ([facility])[address] [place] [address] Hematocrit (Bld) [Volume fraction] 51.7 % Normal 40.0-52.0 [facility] Comment on above: Performed By: #### L [id number] ####Jailor: SO SOSA ([id number])[facility] [place] [address] Hemoglobin (Bld) [Mass/Vol] 17.4 g/dL Normal 13.0-18.0 [facility] Comment on above: Performed By: #### L [id number] ####Jailor: SO SOSA ([id number])[facility] ([facility])[address] [place] [address] MCH (RBC) [Entitic mass] 30.3 pg Normal 26.0-34.0 [facility] Comment on above: Performed By: #### L [id number] ####Jailor: SO SOSA ([id number])[facility] ([facility])[address] MCV (RBC) [Entitic vol] 90.0 fL Normal 80.0-98.0 [facility] Comment on above: Performed By: #### L [id number] ####Jailor: SO SOSA ([id number])[facility] ([facility])[address] Platelet mean volume (Bld) [Entitic vol] 9.6 fL Normal 7.4-12.4 [facility] Comment on above: Performed By: #### L [id number] ####Jailor: SO SOSA ([id number])[facility] ([facility])[address] Platelets (Bld) [#/Vol] 206 10*3/uL Normal 140-440 [facility] Comment on above: Performed By: #### L [id number] ####Jailor: SO SOSA ([id number])[facility] ([facility])[address] RBC (Bld) [#/Vol] 5.75 10*6/uL Normal 4.40-5.90 [facility] Comment on above: Performed By: #### L [id number] ####Jailor: SO SOSA ([id number])[facility] ([facility])[address] WBC (Bld) [#/Vol] 12.2 10*3/uL High 3.6-10.7 [facility] Comment on above: Performed By: #### L [id number] ####Jailor: SO SOSA ([id number])[facility] ([facility])[address] CBC panel Auto (Bld)Ordered By: Raghu Sauceda on 05-21-2023 Erythrocyte distribution width (RBC) [Ratio] 14.2 % 11.5 - 14.5 % [facility] Hematocrit (Bld) [Volume fraction] 51.7 % 40.0 - 52.0 % [facility] Hemoglobin (Bld) [Mass/Vol] 17.4 g/dL 13.0 - 18.0 g/dL [facility] Interpretation and review of laboratory results Abnormal [facility] MCH (RBC) [Entitic mass] 30.3 pg 26. 0 - 34.0 pg [facility] MCHC (RBC) [Mass/Vol] 33.7 % 32.0 - 36.0 % [facility] MCV (RBC) [Entitic vol] 90.0 fL 80.0 - 98.0 fL [facility] Platelet mean volume (Bld) [Entitic vol] 9.6 fL 7.4 - 12.4 fL [facility] Platelets (Bld) [#/Vol] 206 10*3/uL 140 - 440 10*3/uL [facility] RBC (Bld) [#/Vol] 5.75 10*6/uL 4.40 - 5.9 0 10*6/uL [facility] WBC (Bld) [#/Vol] 12.2 10*3/uL High 3.6 - 10.7 10*3/uL [facility] CKon 05-21-2023 CK [Catalytic activity/Vol] 23618 U/L High 30-170 [facility] Comment on above: Performed By: #### L [id number] #### Jailor: SO [id number]) [facility]) [address] [place] [address] CK [Catalytic activity/Vol] 24404 U/L High 30 - 170 U/L [facility] CK [Catalytic activity/Vol]o n 05-21-2023 Interpretation and review of laboratory results Abnormal [facility] COMPREHENSIVE METABOLIC PANE Michael 05-21-2023 Albumin [Mass/Vol] 4.9 g/dL Normal 3.5-5.0 [facility] Comment on above: Performed By: #### L [id number] #### Jailor: OS [id number]) [facility] ([facility]) [address] [place] [address] [place] ALP [Catalytic activity/Vol] 94 U/L Normal 38-126 [facility] Comment on above: Performed By: #### L [id number] #### Jailor: SO SOSA ([id number]) [facility] [address] [place] [address] [place] ALT [Catalytic activity/Vol] 65 U/L High 0-49 [facility] Comment on above: Performed By: #### L [id number] #### Jailor: SO SOSA ([id number]) [facility] ([facility]) [address] [place] [address] [place] Anion gap [Moles/Vol] 18 mmol/L High 3-13 [facility] Comment on above: Performed By: #### L [id number] #### Jailor: SO SOSA ([id number]) [facility] [address] [place] [address] [place] AST [Catalytic activity/Vol] 253 U/L High 15-46 [facility] Comment on above: Performed By: #### L [id number] #### Jailor: SO SOSA ([id number]) [facility] [address] [place] [address] [place] Bilirubin [Mass/Vol] 0.9 mg/dL Normal 0.2-1.3 [facility] Comment on above: Performed By: #### L [id number] #### Jailor: SO SOSA ([id number]) [facility] [address] [place] [address] [place] Calcium [Mass/Vol] 9.7 mg/dL Normal 8.4-10.4 [facility] Comment on above: Performed By: #### L [id number] #### Jailor: SO SOSA ([id number]) [facility] [address] [place] [address] [place] Chloride [Moles/Vol] 100 mmol/L Normal 98-107 [facility] Comment on above: Performed By: #### L [id number] #### Jailor: SO SOSA ([id number]) [facility] ([facility]) [address] CO2 [Moles/Vol] 25 mmol/L Normal 22-30 [facility] Comment on above: Performed By: #### L [id number] #### Jailor: SO SOSA ([id number]) [facility] [address] Creatinine [Mass/Vol] 2.77 mg/dL High 0.66-1.25 [facility] Comment on above: Performed By: #### L [id number] #### Jailor: SO SOSA ([id number]) [facility] ([facility]) [address] GLOMERULAR FILTRATION RATE ML/MIN/1.73 SQ M.PREDICTED 26.8 mL/min/1.73m*2 Low >60.0 [facility] Comment on above: Result Comment: Calc ulation based on the Chronic Kidney Disease Epidemiology Collaboration (CKD-EPI) equation refit without adjustment for race Performed By: #### L [id number] #### Jailor: SO SOSA ([id number]) [facility] [address] [place] [address] [place] Glucose [Mass/Vol] 110 mg/dL High 70-100 [facility] Comment on above: Performed By: #### L [id number] #### Jailor: SO SOSA ([id number]) [facility] ([facility]) [address] [place] [address] [place] Potassium [Moles/Vol] 4.3 mmol/L Normal 3.5-5.1 [facility] Comment on above: Performed By: #### L [id number] #### Jailor: SO SOSA ([id number]) [facility] ([facility]) [address] Protein [Mass/Vol] 8.8 g/dL High 6.3-8.2 [facility] Comment on above: Performed By: #### L [id number] #### Jailor: SO SOSA ([id number]) [facility] ([facility]) [address] Sodium [Moles/Vol] 143 mmol/L Normal 135-145 [facility] Comment on above: Performed By: #### L [id number] #### Jailor: SO SOSA ([id number]) [facility] ([facility]) [address] Urea nitrogen [Mass/Vol] 85 mg/dL High 9-20 [facility] Comment on above: Performed By: #### L [id number] #### Jailor: SO SOSA ([id number]) [facility] ([facility]) [address] Abdomen WO contraston [facility] 1970 [id number] Exam Date/Time: 05/21/2023 22:38 Procedure: CT ABDOMEN PELVIS WO IV CONTRAST Ordering Provider: CLAROS NICHOLAS Reason For Exam: fall,anterior chest/abd injury and wound INDICATION: 52-year-old; fall; anterior chest and abdominal wall pain Scan Parameters: Multiple axial 1mm images were obtained of the chest and 3mm images of the abdomen and pelvis. Coronal and sagittal reconstructions were reviewed as well. Dose reduction was employed with automated exposure control. CONTRAST: No IV contrast COMPARISON: No comparison CT chest, abdomen, pelvis FINDINGS: CHEST: Mild centrilobular emphysema is present. There is no pneumothorax and no confluent consolidation. Scattered subsegmental atelectasis is present. The osseous structures appear intact. The sternum is intact. The thoracic vertebral bodies are intact. The ribs appear intact. There is curvature of the thoracic spine. The thyroid gland contour is normal. The airway is patent. The esophagus is decompressed. The heart is not enlarged. There is no mediastinal or hilar adenopathy. No axillary adenopathy. The patient's hand overlies the thorax, history: Artifact and limiting evaluation. ABDOMEN AND PELVIS: The liver, gallbladder, pancreas, spleen, and adrenal glands are within normal limits. Mild hyperplasia of the adrenal glands without a discrete nodule. There is no hydronephrosis. There is no obstructing ureteral calculus. The bladder contour is within normal limits. The prostate gland is enlarged, correlate with PSA. Fecal retention is present within a distended rectum. The appendix is not clearly identified in the right lower quadrant. Lack of GI contrast likely of intra-abdominal fat limits overall evaluation. A small sliding-type hiatal hernia is present. The lumbar vertebral bodies are intact. The pelvis appears intact. There is curvature of the thoracic spine. A sclerotic focus left sacrum, possible bone island. The aorta contour is within normal limits. The paraspinous muscles are within normal limits. [facility] Radha Farrell MD - 05/21/2023 Patient Name: [facility]AD[facility]RIOS JR [facility] 1970 [id number] Exam Date/Time: 05/21/2023 22:38 Procedure: CT ABDOMEN PELVIS WO IV CONTRAST Ordering Provider: CLAROS NICHOLAS Reason For Exam: fall,anterior chest/abd injury and wound INDICATION: 52-year-old; fall; anterior chest and abdominal wall pain Scan Parameters: Multiple axial 1mm images were obtained of the chest and 3mm images of the abdomen and pelvis. Coronal and sagittal reconstructions were reviewed as well. Dose reduction was employed with automated exposure control. CONTRAST: No IV contrast COMPARISON: No comparison CT chest, abdomen, pelvis FINDINGS: CHEST: Mild centrilobular emphysema is present. There is no pneumothorax and no confluent consolidation. Scattered subsegmental atelectasis is present. The osseous structures appear intact. The sternum is intact. The thoracic vertebral bodies are intact. The ribs appear intact. There is curvature of the thoracic spine. The thyroid gland contour is normal. The airway is patent. The esophagus is decompressed. The heart is not enlarged. There is no mediastinal or hilar adenopathy. No axillary adenopathy. The patient's hand overlies the thorax, history: Artifact and limiting evaluation. ABDOMEN AND PELVIS: The liver, gallbladder, pancreas, spleen, and adrenal glands are within normal limits. Mild hyperplasia of the adrenal glands without a discrete nodule. There is no hydronephrosis. There is no obstructing ureteral calculus. The bladder contour is within normal limits. The prostate gland is enlarged, correlate with PSA. Fecal retention is present within a distended rectum. The appendix is not clearly identified in the right lower quadrant. Lack of GI contrast likely of intra-abdominal fat limits overall evaluation. A small sliding-type hiatal hernia is present. The lumbar vertebral bodies are intact. The pelvis appears intact. There is curvature of the thoracic spine. A sclerotic focus left sacrum, possible bone island. The aorta contour is within normal limits. The paraspinous muscles are within normal limits. IMPRESSION: CHEST: 1. No acute intrathoracic process. 2. Emphysema. ABDOMEN/PELVIS: No acute intra-abdominal or intrapelvic process, as above. Report Dictated on Electronically Signed By: Radha Farrell MD Electronically Signed Date/Time: 05/21/2023 11:02 PM [facility] Radiology Study observation (narrative) [facility] adán CT Cervical spine WO [place] [facility] 05-21-2023 Patient Name: [facility]AD[facility]RIOS JR [facility] 1970 [id number] Exam Date/Time: 05/21/2023 22:37 Procedure: CT CERVICAL SPINE WO IV CONTRAST Ordering Provider: CLAROS NICHOLAS Reason For Exam: fall, head injury CT HEAD: CLINICAL INDICATION: Trauma TECHNIQUE: Transaxial CT sequence performed through the head with 3 mm reconstruction. Sagittal and Coronal reconstruction images included. Dose reduction employed with automated exposure control. COMPARISON: 10/09/2017 FINDINGS: Ventricles and Extra-axial spaces: Generalized enlargement of the ventricles and sulci is noted. No abnormal extracerebral collection identified. Cerebral and cerebellar parenchyma: Periventricular low attenuation areas are noted bilaterally, corresponding to chronic microvascular ischemic change, although degenerative or demyelinating changes may be considered. No additional focal mass lesion or evidence for acute infarct is identified throughout the cerebrum or cerebellum. Brainstem: Normal Visualized Paranasal sinuses: Normal. Mastoid air cells: Normal Visualized Orbits: Normal Calvarium and skull base: Normal CT CERVICAL SPINE: TECHNIQUE: Transaxial sequence through the cervical spine. Coronal and sagittal reconstructions included. Dose reduction was employed with automated exposure control. COMPARISON: None FINDINGS: Cervical vertebrae and joints: No fracture, subluxation or other malalignment. Normal cervical lordosis is observed. Facet joints and uncovertebral joints are unremarkable. No suspicious osseous lesion identified. Intervertebral disc spaces and spinal canal: Multilevel discogenic degenerative changes of the cervical spine is noted with anterior predominant osteophytosis observed. No bony encroachment upon the cervical spinal canal. Soft tissues: Surrounding soft tissues of the neck are unremarkable on this noncontrast study. Other: Lung apices are unremarkable. [facility] Warner Taylor MD - 05/21/2023 Patient Name: SADIE BARRIOS JR : 1970 Exam Date/Time: 05/21/2023 22:37 Procedure: CT CERVICAL SPINE WO IV CONTRAST Ordering Provider: CLAROS NICHOLAS Reason For Exam: fall, head injury CT HEAD: CLINICAL INDICATION: Trauma TECHNIQUE: Transaxial CT sequence performed through the head with 3 mm reconstruction. Sagittal and Coronal reconstruction images included. Dose reduction employed with automated exposure control. COMPARISON: 10/09/2017 FINDINGS: Ventricles and Extra-axial spaces: Generalized enlargement of the ventricles and sulci is noted. No abnormal extracerebral collection identified. Cerebral and cerebellar parenchyma: Periventricular low attenuation areas are noted bilaterally, corresponding to chronic microvascular ischemic change, although degenerative or demyelinating changes may be considered. No additional focal mass lesion or evidence for acute infarct is identified throughout the cerebrum or cerebellum. Brainstem: Normal Visualized Paranasal sinuses: Normal. Mastoid air cells: Normal Visualized Orbits: Normal Calvarium and skull base: Normal CT CERVICAL SPINE: TECHNIQUE: Transaxial sequence through the cervical spine. Coronal and sagittal reconstructions included. Dose reduction was employed with automated exposure control. COMPARISON: None FINDINGS: Cervical vertebrae and joints: No fracture, subluxation or other malalignment. Normal cervical lordosis is observed. Facet joints and uncovertebral joints are unremarkable. No suspicious osseous lesion identified. Intervertebral disc spaces and spinal canal: Multilevel discogenic degenerative changes of the cervical spine is noted with anterior predominant osteophytosis observed. No bony encroachment upon the cervical spinal canal. Soft tissues: Surrounding soft tissues of the neck are unremarkable on this noncontrast study. Other: Lung apices are unremarkable. IMPRESSION: Diminished cerebral volume and evidence of chronic microvascular ischemic, degenerative, and/or demyelinating change without acute intracranial abnormality. No acute abnormality identified throughout the cervical spine. Multilevel degenerative changes of the cervical spine as discussed. Report Dictated on Electronically Signed By: Warner Taylor MD Electronically Signed Date/Time: 05/21/2023 10:52 PM [facility] Radiology Study observation (narrative) [facility] alth CT Chest WO contraston 05-21 Patient Name: SADIE BARRIOS JR : 1970 Exam Date/Time: 05/21/2023 22:37 Procedure: CT CHEST WO IV CONTRAST Ordering Provider: CLAROS NICHOLAS Reason For Exam: fall,anterior chest/abd injury and wound INDICATION: 52-year-old; fall; anterior chest and abdominal wall pain Scan Parameters: Multiple axial 1mm images were obtained of the chest and 3mm images of the abdomen and pelvis. Coronal and sagittal reconstructions were reviewed as well. Dose reduction was employed with automated exposure control. CONTRAST: No IV contrast COMPARISON: No comparison CT chest, abdomen, pelvis FINDINGS: CHEST: Mild centrilobular emphysema is present. There is no pneumothorax and no confluent consolidation. Scattered subsegmental atelectasis is present. The osseous structures appear intact. The sternum is intact. The thoracic vertebral bodies are intact. The ribs appear intact. There is curvature of the thoracic spine. The thyroid gland contour is normal. The airway is patent. The esophagus is decompressed. The heart is not enlarged. There is no mediastinal or hilar adenopathy. No axillary adenopathy. The patient's hand overlies the thorax, history: Artifact and limiting evaluation. ABDOMEN AND PELVIS: The liver, gallbladder, pancreas, spleen, and adrenal glands are within normal limits. Mild hyperplasia of the adrenal glands without a discrete nodule. There is no hydronephrosis. There is no obstructing ureteral calculus. The bladder contour is within normal limits. The prostate gland is enlarged, correlate with PSA. Fecal retention is present within a distended rectum. The appendix is not clearly identified in the right lower quadrant. Lack of GI contrast likely of intra-abdominal fat limits overall evaluation. A small sliding-type hiatal hernia is present. The lumbar vertebral bodies are intact. The pelvis appears intact. There is curvature of the thoracic spine. A sclerotic focus left sacrum, possible bone island. The aorta contour is within normal limits. The paraspinous muscles are within normal limits. [facility] Radha Farrell MD - 05/21/2023 Patient Name: SAD[facility]RIOS JR [facility] 1970 [id number] Exam Date/Time: 05/21/2023 22:37 Procedure: CT CHEST WO IV CONTRAST Ordering Provider: CLAROS NICHOLAS Reason For Exam: fall,anterior chest/abd injury and wound INDICATION: 52-year-old; fall; anterior chest and abdominal wall pain Scan Parameters: Multiple axial 1mm images were obtained of the chest and 3mm images of the abdomen and pelvis. Coronal and sagittal reconstructions were reviewed as well. Dose reduction was employed with automated exposure control. CONTRAST: No IV contrast COMPARISON: No comparison CT chest, abdomen, pelvis FINDINGS: CHEST: Mild centrilobular emphysema is present. There is no pneumothorax and no confluent consolidation. Scattered subsegmental atelectasis is present. The osseous structures appear intact. The sternum is intact. The thoracic vertebral bodies are intact. The ribs appear intact. There is curvature of the thoracic spine. The thyroid gland contour is normal. The airway is patent. The esophagus is decompressed. The heart is not enlarged. There is no mediastinal or hilar adenopathy. No axillary adenopathy. The patient's hand overlies the thorax, history: Artifact and limiting evaluation. ABDOMEN AND PELVIS: The liver, gallbladder, pancreas, spleen, and adrenal glands are within normal limits. Mild hyperplasia of the adrenal glands without a discrete nodule. There is no hydronephrosis. There is no obstructing ureteral calculus. The bladder contour is within normal limits. The prostate gland is enlarged, correlate with PSA. Fecal retention is present within a distended rectum. The appendix is not clearly identified in the right lower quadrant. Lack of GI contrast likely of intra-abdominal fat limits overall evaluation. A small sliding-type hiatal hernia is present. The lumbar vertebral bodies are intact. The pelvis appears intact. There is curvature of the thoracic spine. A sclerotic focus left sacrum, possible bone island. The aorta contour is within normal limits. The paraspinous muscles are within normal limits. IMPRESSION: CHEST: 1. No acute intrathoracic process. 2. Emphysema. ABDOMEN/PELVIS: No acute intra-abdominal or intrapelvic process, as above. Report Dictated on Electronically Signed By: Radha Farrell MD Electronically Signed Date/Time: 05/21/2023 11:02 PM [facility] Radiology Study observation (narrative) [facility] CT Head WO contraston 2022 Patient Name: SADIE BARRIOS JR : 1970 Exam Date/Time: 05/21/2023 22:36 Procedure: CT HEAD WO IV CONTRAST Ordering Provider: CLAROS NICHOLAS Reason For Exam: fall, head injury CT HEAD: CLINICAL INDICATION: Trauma TECHNIQUE: Transaxial CT sequence performed through the head with 3 mm reconstruction. Sagittal and Coronal reconstruction images included. Dose reduction employed with automated exposure control. COMPARISON: 10/09/2017 FINDINGS: Ventricles and Extra-axial spaces: Generalized enlargement of the ventricles and sulci is noted. No abnormal extracerebral collection identified. Cerebral and cerebellar parenchyma: Periventricular low attenuation areas are noted bilaterally, corresponding to chronic microvascular ischemic change, although degenerative or demyelinating changes may be considered. No additional focal mass lesion or evidence for acute infarct is identified throughout the cerebrum or cerebellum. Brainstem: Normal Visualized Paranasal sinuses: Normal. Mastoid air cells: Normal Visualized Orbits: Normal Calvarium and skull base: Normal CT CERVICAL SPINE: TECHNIQUE: Transaxial sequence through the cervical spine. Coronal and sagittal reconstructions included. Dose reduction was employed with automated exposure control. COMPARISON: None FINDINGS: Cervical vertebrae and joints: No fracture, subluxation or other malalignment. Normal cervical lordosis is observed. Facet joints and uncovertebral joints are unremarkable. No suspicious osseous lesion identified. Intervertebral disc spaces and spinal canal: Multilevel discogenic degenerative changes of the cervical spine is noted with anterior predominant osteophytosis observed. No bony encroachment upon the cervical spinal canal. Soft tissues: Surrounding soft tissues of the neck are unremarkable on this noncontrast study. Other: Lung apices are unremarkable. [facility] Warner Taylor MD - 05/21/2023 Patient Name: [facility]AD[facility]RIOS JR [facility] 1970 [id number] Exam Date/Time: 05/21/2023 22:36 Procedure: CT HEAD WO IV CONTRAST Ordering Provider: CLAROS NICHOLAS Reason For Exam: fall, head injury CT HEAD: CLINICAL INDICATION: Trauma TECHNIQUE: Transaxial CT sequence performed through the head with 3 mm reconstruction. Sagittal and Coronal reconstruction images included. Dose reduction employed with automated exposure control. COMPARISON: 10/09/2017 FINDINGS: Ventricles and Extra-axial spaces: Generalized enlargement of the ventricles and sulci is noted. No abnormal extracerebral collection identified. Cerebral and cerebellar parenchyma: Periventricular low attenuation areas are noted bilaterally, corresponding to chronic microvascular ischemic change, although degenerative or demyelinating changes may be considered. No additional focal mass lesion or evidence for acute infarct is identified throughout the cerebrum or cerebellum. Brainstem: Normal Visualized Paranasal sinuses: Normal. Mastoid air cells: Normal Visualized Orbits: Normal Calvarium and skull base: Normal CT CERVICAL SPINE: TECHNIQUE: Transaxial sequence through the cervical spine. Coronal and sagittal reconstructions included. Dose reduction was employed with automated exposure control. COMPARISON: None FINDINGS: Cervical vertebrae and joints: No fracture, subluxation or other malalignment. Normal cervical lordosis is observed. Facet joints and uncovertebral joints are unremarkable. No suspicious osseous lesion identified. Intervertebral disc spaces and spinal canal: Multilevel discogenic degenerative changes of the cervical spine is noted with anterior predominant osteophytosis observed. No bony encroachment upon the cervical spinal canal. Soft tissues: Surrounding soft tissues of the neck are unremarkable on this noncontrast study. Other: Lung apices are unremarkable. IMPRESSION: Diminished cerebral volume and evidence of chronic microvascular ischemic, degenerative, and/or demyelinating change without acute intracranial abnormality. No acute abnormality identified throughout the cervical spine. Multilevel degenerative changes of the cervical spine as discussed. Report Dictated on Electronically Signed By: Warner Taylor MD Electronically Signed Date/Time: 05/21/2023 10:52 PM EST [facility] Radiology Study observation (narrative) [facility] metabolic 1998 panelon 05-21-2023 Albumin [Mass/Vol] 4.9 g/dL 3.5 - 5.0 g/dL [facility] ALP [Catalytic activity/Vol] 94 U/L 38 - 126 U/L [facility] ALT [Catalytic activity/Vol] 65 U/L High 0 - 49 U/L [facility] Anion gap [Moles/Vol] 18 mmol/L High 3 - 13 mmol/L [facility] AST [Catalytic activity/Vol] 253 U/L High 15 - 46 U/L [facility] Bilirubin [Mass/Vol] 0.9 mg/dL 0.2 - 1 .3 mg/dL [facility] Calcium [Mass/Vol] 9.7 mg/dL 8.4 - 10. 4 mg/dL [facility] Chloride [Moles/Vol] 100 mmol/L 98 - 10 7 mmol/L [facility] CO2 [Moles/Vol] 25 mmol/L 22 - 30 mmol/L [facility] Creatinine [Mass/Vol] 2.77 mg/dL High 0.66 - 1.25 mg/dL [facility] GFR/1.73 sq M.predicted MDRD (S/P/Bld) [Vol rate/Area] 26.8 mL/min/{1.73_m2} Low - PINF [facility] Comment on above: Calculation based on the Chronic Kidney Disease Epidemiology Collaboration (CKD-EPI) equation refit without adjustment for race Glucose [Mass/Vol] 110 mg/dL High 70 - 100 mg/dL [facility] Interpretation and review of laboratory results Abnormal [facility] Potassium [Moles/Vol] 4.3 mmol/L 3.5 - 5.1 mmol/L [facility] Protein [Mass/Vol] 8.8 g/dL High 6.3 - 8.2 g/dL [facility] Sodium [Moles/Vol] 143 mmol/L 135 - 145 mmol/L [facility] Urea nitrogen [Mass/Vol] 85 mg/dL High 9 - 20 mg/d L [facility] ED Nursing Noteon 05-21-2023 ED Nursing Note Lab called states pt lactic is 5.2. Dr Claros notified Anabella Garces RN 05/21/232144 [facility] ED Nursing Note Bed: 15 Expected date: Expected time: Means of arrival: Comments: BFJaneen Garces RN 05/21/232039 [facility] [facility] ED Nursing Note C/o fall earlier today. Pt on ground for unknown amount of time. Voice is raspy. Pt is A&Ox4 a baseline, pt lives alone at home. [facility] ED Provider Noteon ED Provider Note I did not participate in the care of this patient Dmitry Vazquez MD 05/22/[address] [facility] ED Provider Note Emergency Department Encounter [facility] ED Patient: Sadie Barrios : 1970 Date of Evaluation: 05/21/2023 ED Provider: Levy Claros MD Note: I wore an N95 mask and gloves during this encounter. CHIEF COMPLAINT: Fall HPI: Sadie Barrios is a 52 y.o. 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 Patient reports yesterday he fell, he is unable to explain mechanism for fall, reports he has been laying on the ground for an unknown duration of time, he endorses pain/injury involving the left knee, bilateral elbows, and forehead, denies pain or injury elsewhere including the chest abdomen or pelvis, back, or elsewhere throughout the extremities, he denies numbness or weakness, shortness of breath, fever chills, cough, abdominal pain. REVIEW OF SYSTEMS: Pertinent positives and negatives as per HPI. HISTORIES: PAST MEDICAL HISTORY: as per HPI SOCIAL HISTORY: As per HPI MEDICATIONS: Nursing notes and EMR reviewed ALLERGIES: Nursing notes and EMR reviewed PHYSICAL EXAM: Vital signs: reviewed Gen: Alert, chronically ill-appearing, appears malnourished Eye: normal conjunctiva, pupils midsized, symmetrical Neck: No midline cervical tenderness, step-offs or deformities HEENT: No visible facial trauma, no scalp contusion, no scalp tenderness Respiratory: nonlabored respiration, bilateral breath sounds present, no chest wall tenderness, wound on the anterior chest/abdomen without surrounding erythema warmth drainage, or palpable deformity or tenderness Cardiovascular: Normal rate, regular rhythm, distal pulses palpable in all extremities Gastrointestinal: Soft, nontender, nondistended Integumentary: stage I gluteal decubitus wound without surrounding erythema warmth or drainage Musculoskeletal: Tolerates range of motion bilateral shoulders, elbows, wrists RUE: Abrasion wounds in the right elbow without palpable bony deformity, no tenderness or deformity elsewhere throughout the right upper extremity LUE: Abrasion wounds on the left elbow without palpable bony deformity, no tenderness or deformity elsewhere throughout the left upper extremity RLE: Subacute/chronic wound on the right heel without surrounding erythema warmth or drainage, no tenderness or deformity elsewhere throughout the right lower extremity LLE: subacute appearing wound inferior to the left patella without palpable bony deformity, no erythema warmth or drainage Back: No midline thoracic or lumbar tenderness step-offs or deformities Neurologic: GCS 15, full strength bilateral shoulder flexion, full strength bilateral ankle plantarflexion, gross sensory intact all extremities, seemingly answering questions appropriately, no facial asymmetry, follows commands, [id number] dysmetria present MEDICAL DECISION MAKING: Medications Tdap (BoostRIX) vaccine 0.5 mL (has no administration in time range) acetaminophen (Tylenol) tablet 1,000 mg (has no administration in time range) sodium chloride 0.9 % bolus 1,000 mL (has no administration in time range) Sadie Barrios is a 52 y.o. male who presents as above, reports fall yesterday, wounds/injury bilateral elbows left knee, wound on the anterior abdomen, reports head injury, unknown downtime on the ground, he appears chronically ill and malnourished, presentation concerning for traumatic injuries, metabolic disturbance, dysrhythmia, will obtain work-up to evaluate including CT head, cervical spine, chest admitted pelvis, bilateral elbows, left knee, broad laboratory valuation, EKG. We will treat with IV fluids, Tylenol, tetanus update, thiamine. Labs obtained, interpreted by me, notable for creatinine 2.77 no recent labs available for comparison, mild AST transaminitis otherwise unremarkable LFTs, WBC 12.2, lactate 5.2-will trend following IV fluids -given possibility of an infectious process we will treat with empiric vancomycin and cefepime pending further work-up results, viral panel negative for COVID influenza and RSV, VBG without acidosis, anion gap 18, bicarb 25 urinalysis pending, CK 11,866 -treating with IV fluids EKG obtained, per my interpretation, notable for this rhythm, PAC, no acute ischemic ST segment changes. Troponin 0.056, will require further cardiac evaluation as an inpatient, suspect component related to renal dysfunction CT head per radiologist interpretation, no acute findings CT C-spine per radiologist interpretation, no acute findings CT chest abdomen pelvis per radiologist interpretation no acute findings B/L elbows x-ray obtained, interpreted per radiologist no acute findings Left knee x-ray obtained, interpreted per radiologist no acute osseous abnormality of the left knee, mild degenerative narrowing involving the medial compartment of the knee, trace suprapatellar effusion Patient require hospitalizat (more content not included)... Normal [facility] ETHANOLon 05-21-2023 ETHANOL IN SER/PLAS <0.010 Normal 0.000-0.010 [facility] Comment on above: Result Comment: QUYEN Callahan COMMENTS: NOTE: This result is for medical treatment only. Analysis performed using non-forensic procedures. Performed By: #### L [id number] #### Jailor: SO SOSA ([id number]) [facility] ([facility]) [address] [place] [address] Ethanol (Bld) [Mass/Vol]on 07-21-2022 Ethanol [Mass/Vol] g/dL 0.000 - 0 .010 g/dL [facility] Interpretation and review of laboratory results Normal [facility] FREE T4on 05-21-2023 Free T4 [Mass/Vol] 1.26 ng/dL Normal 0.78-2.19 [facility] Comment on above: Performed By: #### L [id number] #### Jailor: SO SOSA ([id number]) [facility] ([facility]) [address] [place] [address] Free T4 [Mass/Vol]on 023 Free T4 Dialysis [Mass/Vol] 1.26 ng/dL 0.78 - 2.19 ng/dL [facility] Interpretation and review of laboratory results Normal [facility] LACTIC ACID WITH REFLEXon Lactate [Moles/Vol] 5.2 mmol/L Critically high 0.7-2.0 [facility] Comment on above: Performed By: #### L [id number] ####Jailor: SO SOSA ([phone])[facility] [place] [address] Lactic acid with reflexOrder ed By: Nkechi Bliss on 05-21-2023 Interpretation and review of laboratory results Abnormal [facility] Lactate [Moles/Vol] 5.2 mmol/L Critically high 0.7 - 2.0 mmol/L [facility] No Panel Informationon 05-21 CHEST: 1. No acute intrathoracic process. 2. Emphysema. ABDOMEN/PELVIS: No acute intra-abdominal or intrapelvic process, as above. Report Dictated on Electronically Signed By: Radha Farrell MD Electronically Signed Date/Time: 05/21/2023 11:02 PM [facility] Diminished cerebral volume and evidence of chronic microvascular ischemic, degenerative, and/or demyelinating change without acute intracranial abnormality. No acute abnormality identified throughout the cervical spine. Multilevel degenerative changes of the cervical spine as discussed. Report Dictated on Electronically Signed By: Warner Taylor MD Electronically Signed Date/Time: 05/21/2023 10:52 PM [facility] No Panel InformationOrdered By: Radha Farrell on 05-21-2023 [facility] Work Phone: No Panel InformationOrdered By: Warner Taylor on 05-21-2023 [facility] Work Phone: POCT venous blood gason Base excess Calc (BldV) [Moles/Vol] -2.3000 mmol/L -3 - 3 mmol/L [facility] CO2 (BldV) [Partial pressure] 48.6 mm[Hg] [facility] FIO2 [facility] HCO3 (Bld) [Moles/Vol] 24.7 mmol/L 23.0 - 27.0 mmol/L [facility] Interpretation and review of laboratory results Abnormal [facility] Oxygen (BldV) [Partial pressure] 34.9 mm[Hg] [facility] Oxygen saturation in Venous blood 61.1 % 60.0 - 80.0 % [facility] Comment on above: Performed by CLIA ID : [id number] [place], [place] ?Device: [id number] Milk Condenser ID: [id number] pH (BldV) 7.314 [pH] Low 7.330 - 7.430 pH [facility] Performed by: [facility], [address] [facility] [place] [address] CLIA ID: [id number] [facility] PROTHROMBIN TIMEon INR Coag (PPP) [Relative time] 1.1 {INR} Normal 0.9-1.1 [facility] Comment on above: Result Comment: Billy mmended Anticoagulant Therapy: SEE BELOW ----- INR of 2.0 - 3.0 : - Prophylaxis of Venous Thrombosis (high-risk surgery) - Treatment of Venous Thrombosis - Treatment of Pulmonary Embolism (Includes tissue heart valves, Acute Myocardial Infarction to prevent systemic embolism, Valvular Heart Disease, and Atrial Fibrillation) ----- INR of 2.5 - 3.5 : - Mechanical Prosthetic Valves (high risk) - If oral anticoagulant therapy is used to prevent Myocardial Infarction Performed By: #### L [id number] #### Jailor: SO SOSA ([phone]) [facility] ([facility]) [address] PT Coag (PPP) [Time] 12.3 s High 9.0-12.0 [facility] Comment on above: Performed By: #### L [id number] #### Jailor: SO SOSA ([id number]) [facility] ([facility]) [address] [place] [address] [place] PT Coag (Bld) [Time]on 05-21 INR Coag (PPP) [Relative time] 1.1 {INR} 0.9 - 1.1 [facility] Comment on above: Recommended Anticoag ulant Therapy: SEE BELOW ----- INR of 2.0 - 3.0 : - Prophylaxis of Venous Thrombosis (high-risk surgery) - Treatment of Venous Thrombosis - Treatment of Pulmonary Embolism (Includes tissue heart valves, Acute Myocardial Infarction to prevent systemic embolism, Valvular Heart Disease, and Atrial Fibrillation) ----- INR of 2.5 - 3.5 : - Mechanical Prosthetic Valves (high risk) - If oral anticoagulant therapy is used to prevent Myocardial Infarction Interpretation and review of laboratory results Abnormal [facility] Protime-INRon 05-21-2023 PT Coag (Bld) [Time] 12.3 s High 9.0 - 12.0 s [facility] SARS-COV-2, FLU A/B, AND RSV COMBOon 05-21-2023 SARS-CoV-2 (COVID-19) RNA ELIAZAR+probe Ql (Unsp spec) SARS-COV-2 Reference Not Detected Not Detected RESPIRATORY SYNCYTIAL VIRUS Reference Not Detected Not Detected INFLUENZA A (CEPHEID) Reference Not Detected Not Detected INFLUENZA B (CEPHEID) Reference Not Detected Not Detected ORDER COMMENTS: Methodology: real-time, RT-PCR The SARS-CoV-2, Flu A/B, and RSV Combo assay is intended for in vitro diagnostic use under the FDA Emergency Use Authorization (EUA). This test has not been FDA cleared or approved. In compliance with this authorization, please visit www.fda.gov/media/7 15272/download or www.fda.gov/media/5 81600/download to access the applicable information sheets. Normal [facility] Comment on above: Performed By: #### L [id number] ####Jailor: SO SOSA ([phone])[facility] ([facility])[address] [place] [address] SARS-CoV-2, Flu A/B, and RSV Comboon 05-21-2023 FLUAV RNA ELIAZAR+probe Ql (Resp) Not detected Not Detected [facility] FLUBV RNA ELIAZAR+probe Ql (Resp) Not detected Not Detected [facility] Interpretation and review of laboratory results Normal [facility] RSV RNA ELIAZAR+probe Ql (Resp) Not detected Not Detected [facility] SARS-CoV-2 (COVID-19) RNA ELIAZAR+probe Ql (Resp) Not detected Not Detected [facility] SARS-CoV-2 (COVID-19) RNA ELIAZAR+probe Ql (Unsp spec) Methodology: real-time, RT-PCR The SARS-CoV-2, Flu A/B, and RSV Combo assay is intended for in vitro diagnostic use under the FDA Emergency Use Authorization (EUA). This test has not been FDA cleared or approved. In compliance with this authorization, please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 Expected End: 06/05/23 Mobility Patient will increase ROM/strength of BUE to be able to increase strength required for transfers. Start: 05/22/23 Expected End: 06/05/23 Toileting Patient will complete toileting tasks at bedside commode with mod assist. Start: 05/22/23 Expected End: 06/05/23 Transfers Patient will complete functional transfer with rolling walker with mod assist in order to prepare for ambulation. Start: 05/22/23 Expected End: 06/05/23 Patient will perform bed mobility with min assist in order to improve independence and prepare for out of bed mobility. Start: 05/22/23 Expected End: 06/05/23 Therapy Time Individual Co-treatment Time In 1124 Time Out 1136 Minutes 12 Jesenia Shea OT Patient's Occupational Therapy Plan of Care supervision is transferred to a [facility] Therapy Services Occupational Therapist. Goals and/or treatment plan was established in collaboration with patient/family/other representatives. Images from the original note were not included. PHYSICAL THERAPY [facility] Initial Evaluation Name/MRN: Sadie Barrios ([id number]) Evaluation Date: 05/22/2023 Date of : 1970 Admission Date: 05/21/2023 8:39 PM Age: 52 y.o. Room/Bed: / A Discharge Recommendation: SNF Equipment Needed: TBD at next level of care Assessment IMPRESSION: Pt is a 52 y.o. male admitted 05/21 s/p fall at home, reports down for over a day or more per H&P. Imaging (-). Noted to have multiple sores on body. Pt has significant past medical history as indicated impacting pt's current clinical presentation. Pt was previously independent with functional mobility with rollator vs electric w/c. Pt is currently requiring max A x2 person for supine<->sit, mod A x1 for static sitting balance EOB. Pt is currently limited by weakness, fatigue, endurance and is at an increased risk for falls. Pt will benefit from acute skilled PT to address current deficits. Recommend SNF. Diagnosis: admitted 05/21 s/p fall at home, reports down for over a day or more per H&P. Imaging (-). Prognosis: fair Performance Deficits /Impairments: Decreased Functional Mobility, Decreased ROM, Decreased Strength, Decreased Endurance, Decreased Balance, and Decreased Posture Decision Making: Medium Complexity Subjective Pt pleasant and agreeable to therapy session Per RN fiona for therapy O2 NC intact, PIV Pain: Pt denies any current pain. Past Medical History: Past Medical History: Diagnosis Date Hyperlipidemia Hypertension MS (multiple sclerosis) (HCC) dx 1997 Past Surgical History: No past surgical history on file. Admission Diagnosis: Patient Active Problem List Diagnosis Date Noted Renal insufficiency 05/22/2023 Medical Precautions: No active isolations Proper PPE donned/doffed in accordance with facility standards. Fall Risk: Schmidt Fall Risk Score: 65 (Medium Risk) Precautions/Restrictions: N/A Family/Caregiver Present: none Overall Cognitive Status: WFL- pt followed commands and answered questions appropriately however, pt questionable historian. Overall Orientation Status: Oriented x4 Vision: wears glasses at all times and and are NOT being used during the eval Hearing: normal Social/Functional History Patient admitted from home. Lives With: Alone Type of Home: single family home Home Layout: Two Level Home and Able to Live on Main Level Home Access: Stairs to Enter with Rails (# of stairs: 4) Bathroom Shower/Tub: Shower Chair with Back, Walk in Shower, and Grab Bars Toilet: Standard Home Equipment: rollator and wheelchair - manual Homemaking Responsibilities: Independent Receives Help From: Family and Friend(s) Active Senior Adults Director: Yes Prior Level of Function ADL Assistance: Independent Ambulation Assistance: Independent Device(s) used: rollator vs electric w/c Transfer Assistance: Independent Objective Lower Extremity Assessment AROM: Impaired: Grossly decreased in BLE. Strength: Lower Extremity Strength Right Left Hip Flexion 2- 1 Hip Abduction Hip Extension Hip External Rotation (ER) Hip Internal Rotation (IR) Knee Extension Knee Flexion 2- 1+ Ankle Dorsiflexion (DF) 2- 1 Ankle Plantarflexion (PF) Inversion Eversion Bed Mobility: Supine to sit: Max Assist, x2 Person Assist Sit to supine: Max Assist, x2 Person Assist Pt completes supine<->sit requiring max A x2 person assist for trunk and BLE management. Increased time to complete. Minimal initiation of task. Transfers Unsafe to attempt due to LE weakness, poor sitting balance. Ambulation Did not assess this session. Sensation: WFL Balance: Posture: poor Sitting - Static: Mod Assist Pt demos significant forward flexed posture once in sitting requiring verbal cues and physical assist to correct with poor initiation. Pt requires mod A for static sitting balance EOB with BUE assist. Pt tolerates ~2 minutes sitting EOB then requests return to supine. Outcome Measures AM-PAC How much HELP from another person do you currently need Turning from your back to your side while in a flat bed without using bedrails?: A Little Moving from lying on your back to sitting on the side of a flat bed without using bedrails?: A Lot Moving to and from a bed to a chair (including a wheelchair)?: Total Standing up from a chair using your arms (wheelchair or bedside chair)?: Total Walking in a hospital room?: Total Stair climbing assessed?: No AM-PAC Inpatient Mobility Raw Score (No Stairs) : 8 Plan Pt would benefit from skilled acute PT services to address Strengthening, Balance Training, Functional Mobility Training, Endurance Training, Wheelchair Mobility Training, Neuromuscular Re-Education Training, Pain Management, Safety Education and Training, Patient/Caregiver Training, Equipment Evaluation/Education, and Positioning. Frequency: 5 visits during current hospital admission or until additional recommendations are made Barriers: Decreased endurance, Upper extremity weakness, Lower extremity weakness, and Long standing deficits Safety/Education Safety Safety Devices in place: All fall risk precautions in place, call light within reach, left in bed, patient at risk for falls, and no alarms engaged upon entry Restraints: N/A Education Education Given To: patient Education Provided: PT Role, PT Goals, Plan of Care, and Benefits of Increasing Activity Education Method: Verbal Barriers to Learning: None Education Outcome: Verbalized Understanding, Demonstrated Understanding, and Continued Education Needed Goals Patient Stated Goal: Pt did not state. Encounter Problems Encounter Problems (Active) Balance Patient will maintain static sitting balance for 3 minutes with mod assist in order to demonstrate improved postural control and prepare for out of bed mobility. Start: 05/22/23 Expected End: 05/29/23 Patient will maintain dynamic sitting balance for 2 minutes with mod assist in order to demonstrate improved postural control and prepare for out of bed mobility. Start: 05/22/23 Expected End: 05/29/23 Exercise Patient will complete lower extremity exercises for 1-2 sets / 5-10 reps in order to improve strength and activity tolerance for mobility. Start: 05/22/23 Expected End: 05/29/23 Mobility Transfers Patient will perform bed mobility with mod assist in order to improve independence and prepare for out of bed mobility. Start: 05/22/23 Expected End: 05/29/23 Patient will complete functional transfer with least restrictive device with max assist in order to prepare for ambulation. Start: 05/22/23 Expected End: 05/29/23 Therapy Time Individual Co-treatment Time In 1123 (co-eval with OT) Time Out 1136 Minutes 13 Brenda Li PT Patient's Physical Therapy Plan of Care supervision is transferred to a [facility] Therapy Services Physical Therapist. Goals and/or treatment plan was established in collaboration with patient/family/other representatives. documented in this encounter [facility] 05-22-2023 Note Discharge Summary Sadie Barrios : 1970 ADMIT DATE: 05/21/2023 DISCHARGE DATE: 05/22/2023 PRIMARY CARE PHYSICIAN: Gregorio Black MD VISIT STATUS: inpatient CODE STATUS: Full Code DISCHARGE DIAGNOSES: Rhabdomyolysis S/P fall MARA Dehydration Demand ischemia Multiple skin wounds Multiple sclerosis HTN Hyperlipidemia Leukocytosis Transaminitis HOSPITAL COURSE: 52 year old presented with increasing weakness. He was found down by his family. He was admitted and placed on empiric antibiotics. He was found to have MARA and increased CPKs and was placed on IVF. He was seen by wound care and PT/OT. Antibiotics were discontinued and he is to be observed closely off them. He was determined to be a good LTAC candidate, was accepted and transferred. SIGNIFICANT DIAGNOSTIC STUDIES: Left knee xray, bilateral elbow xray, CT head, CT c spine, CT chest, CT abd/pelvis CONSULTANTS: Wound care RECOMMENDED NEXT STEPS: Continue IVF and monitor CPK. Transferred to [facility] for further care and treatment. Physical Exam: Vitals: BP 122/80 Pulse 79 Temp 37.1 ?C (98.7 ?F) (Axillary) Resp 19 Ht 5' 9 (1.753 m) Wt 130 lb 6.4 oz (59.1 kg) SpO2 100% BMI 19.26 kg/m? Pulse Ox: SpO2 Av.2 % Min: 95 % Max: 100 % General appearance: alert, cooperative and no distress Mental Status: oriented to person, place and time and normal affect Lungs: clear to auscultation bilaterally, normal effort Heart: regular rate and rhythm, no murmur Abdomen: soft, nontender, nondistended, bowel sounds present, no masses Extremities: no edema, redness, tenderness in the calves Skin: multiple skin lesions as described in the H&P LABS: CBC: Recent Labs 05/21/232113 WBC 12.2* RBC 5.75 HGB 17.4 HCT 51.7 MCV 90.0 RDW 14.2 PLT 206 BMP: Recent Labs 05/21/232113 NA 141 143 K 4.4 4.3 CL 101 100 CO2 21* 25 BUN 82* 85* CREATININE 2.72* 2.77* GLUCOSE 111* 110* CALCIUM 9.9 9.7 ANIONGAP 20* 18* LIVER PROFILE: Recent Labs 05/21/232113 AST 253* ALT 65* BILITOT 0.9 ALKPHOS 94 PROT 8.8* PT/INR: Recent Labs 05/21/232113 PROTIME 12.3* INR 1.1 CARDIAC ENZYMES: Recent Labs 05/21/23211305/22/23 0308 TROPONINI 0.056* 0.079* DISCHARGE MEDICATIONS: Medication List START taking these medications acetaminophen 325 MG tablet Commonly known as: Tylenol Take 2 tablets (650 mg) by mouth every 6 hours as needed for mild pain (1-3) or fever (For temp greater than 100.4 F (38 C)) for up to 10 days. enoxaparin 30 MG/0.3ML solution prefilled syringe Commonly known as: Lovenox Inject 0.3 mL (30 mg) under the skin every 24 hours. sodium chloride 0.9 % solution Infuse 150 mL/hr into a venous catheter continuous. Where to Get Your Medications Information about where to get these medications is not yet available Ask your nurse or doctor about these medications acetaminophen 325 MG tablet enoxaparin 30 MG/0.3ML solution prefilled syringe sodium chloride 0.9 % solution DIET: Adult diet Regular ACTIVITY: No heavy lifting. up with assist COMPLEXITY OF FOLLOW UP: [] Moderate Complexity: follow up within 7-14 calendar days (07726) [] Severe Complexity: follow up within 7 calendar days (27300) FOLLOW UP TESTING, PENDING RESULTS OR REFERRALS AT TRANSITIONAL CARE VISIT: [] Yes [] No PENDING STUDIES: No DISPOSITION: LTAC FACILITY/HOME CARE AGENCY NAME: [facility] INSTRUCTIONS TO MA/SW: Please call patient on day after discharge (must document patient contacted within 2 business days of discharge). FOLLOW UP QUESTIONS FOR MA/SW: 1. Did you get medications filled and taking them as instructed from discharge? 2. Are you following your discharge instructions from your hospital stay? 3. Please confirm patient is scheduled for a follow up appointment within the above time frame. DISCHARGE TIME: > 35 minutes SIGNED: GEOFF POWERS MD 05/22/2023, 2:56 PM [facility] 05-22-2023 Note OCCUPATIONAL THERAPY [facility] Initial Evaluation Name/MRN: Sadie Barrios ([id number]) Evaluation Date: 05/22/2023 Date of : 1970 Admission Date: 05/21/2023 8:39 PM Age: 52 y.o. Room[facility]Bed: [facility] Discharge Recommendation: SNF Equipment Needed: TBD at next level of care Assessment IMPRESSION: Pt admitted with fall, found to have rhabdo and multiple wounds on body, h/o MS. Per pt, prior to admission, pt was independent in Adls, transfers and mobility with rollator/ power chair. Pt now requires mod-total A for Adls, and max A for x2 for bed mobility and mod A for sitting balance. Pt is limited by impaired balance, endurance and strength. Pt should benefit from skilled OT services in order to increase safety and independence in occupational participation. Performance Deficits /Impairments: Decreased Functional Mobility, Decreased ADL status, Decreased ROM, Decreased Strength, Decreased Safety Awareness, Decreased Cognition, Decreased Endurance, Decreased Balance, Decreased High Level IADLs, and Decreased Posture Prognosis: Fair Decision Making: Medium Complexity Subjective Pt pleasant and cooperative. Per RN, ok for pt to participate in OT eval. Co-eval with PT as pt is 2-person assist to safely mobilize. Wounds present throughout body in various stages of healing. Pain: Pt denies any current pain. Past Medical History: Past Medical History: Diagnosis Date Hyperlipidemia Hypertension MS (multiple sclerosis) (HCC) dx 1997 Past Surgical History: No past surgical history on file. Admission Diagnosis: Patient Active Problem List Diagnosis Date Noted Renal insufficiency 05/22/2023 Medical Precautions: No active isolations Proper PPE donned/doffed in accordance with facility standards. Fall Risk: Schmidt Fall Risk Score: 65 (High Risk) Precautions/Restrictions: N/A Family/Caregiver Present: none Overall Cognitive Status: Pt answered questions and followed commands appropriately, however, pt is questionable historian. Overall Orientation Status: Oriented x4 Social/Functional History Patient admitted from home. Lives With: Alone Type of Home: single family home Home Layout: Two Level Home and Able to Live on Main Level Home Access: Stairs to Enter with Rails (# of stairs: 4) Bathroom Shower/Tub: Shower Chair with Back, Walk in Shower, and Grab Bars Toilet: Standard Home Equipment: wheelchair - manual Homemaking Responsibilities: Independent Receives Help From: Family and Friend(s) Active Senior Adults Director: Yes Prior Level of Function ADL Assistance: Independent Ambulation Assistance: Independent Device(s) used: rollator and wheelchair - electric Transfer Assistance: Independent Objective ADLs Pt with decreased ROM/strength, impaired functional reach as well as impaired sitting balance requiring increased assist for full body ADLs. Upper Extremity Assessment AROM: Impaired: Observed functionally, shld ~80, distal WFL Strength: Exceptions: <3/5 within given range Vision: no visual deficits Hearing: normal Bed Mobility Supine to sit: Max Assist, x2 Person Assist Sit to supine: Max Assist, x2 Person Assist Scooting: Max Assist, x2 Person Assist Pt required VC for initiation and sequencing with increased time and use of bed features. Pt complete sup<>sit with max A x2 with BLE and trunk management. Denied dizziness with changes in positioning. Pt required max Ax2 to scoot to EOB and to HOB. Transfers/Functional Mobility Sitting balance: Mod Assist Pt tolerated sitting at EOB ~2 min with mod A to correct d/t L lateral lean and retrograde lean. Pt with increased fatigue and dizziness, requesting to return to supine. Device(s) used: none AM-PAC AM-PAC Inpatient Daily Activity Raw Score: 11 ADL Inpatient CMS G-Code Modifier: CL Plan Pt would benefit from skilled acute OT services to address Strengthening, ROM, Balance Training, Functional Mobility Training, Endurance Training, Pain Management, Safety Education and Training, Patient/Caregiver Training, Equipment Evaluation/Education, Positioning, and Self-Care/ADL Training. Frequency: 7 visits during current hospital admission or until additional recommendations are made Barriers: Decreased endurance, Upper extremity weakness, Lower extremity weakness, and Long standing deficits Prognosis: good Safety/Education Safety Safety Devices in place: All fall risk precautions in place, call light within reach, left in bed, patient at risk for falls, nurse notified, and no alarms engaged upon entry Restraints: No Education Education Given To: patient Education Provided: OT Role, Plan of Care, and bed mobility/sitting balance Education Method: Verbal Barriers to Learning: None Education Outcome: Verbalized Understanding, Demonstrated Understanding, and Continued Education Needed Goals Patient Stated Goal: to get stronger. Encounter Problems (more content not included)... [facility] 05-22-2023 Consult note Formatting of th is note is different from the original. Images from the original note were not included. [facility] Wound Care CONSULT Note Sadie Barrios AGE: 52 y.o. GENDER: male : 1970 Subjective: HISTORY of PRESENT ILLNESS HPI Sadie Barrios is a 52 y.o. male with MS who presents for a wound consult. Pt was hospitalized on 05/21/23 with renal insufficiency. States he fell and sustained multiple skin wounds. PAST MEDICAL HISTORY Active Ambulatory Problems Diagnosis Date Noted No Active Ambulatory Problems Resolved Ambulatory Problems Diagnosis Date Noted No Resolved Ambulatory Problems Past Medical History: Diagnosis Date Hyperlipidemia Hypertension MS (multiple sclerosis) (HCC) PAST SURGICAL HISTORY No past surgical history on file. FAMILY HISTORY Family History Problem Relation Name Age of Onset Diabetes Father SOCIAL HISTORY Social History Tobacco Use Smoking status: Some Days Smokeless tobacco: Never Tobacco comments: Quit smokin-2 cigarettes every 2-3 days Substance Use Topics Alcohol use: No Drug use: No ALLERGIES No Known Allergies REVIEW OF SYSTEMS Pertinent items are noted in HPI. Objective: BP 137/72 (BP Location: Right arm, Patient Position: Sitting) Pulse 80 Temp 36.8 C (98.2 F) (Temporal) Resp 17 Ht 5' 9 (1.753 m) Wt 130 lb 6.4 oz (59.1 kg) SpO2 99% BMI 19.26 kg/m PHYSICAL EXAM General appearance: in no apparent distress, non-toxic, in no respiratory distress and acyanotic, alert, normal vitals, and cooperative Skin: warm and dry Pulmonary: Normal effort, no respiratory distress, no cyanosis Abdomen: soft, nontender, and nondistended Extremities: no cyanosis, clubbing or edema W: LABS CBC: Lab Results Component Value Date WBC 12.2 (H) 05/21/2023 HGB 17.4 05/21/2023 HCT 51.7 05/21/2023 MCV 90.0 05/21/2023 PLT 206 05/21/2023 BMP: Lab Results Component Value Date NA 143 05/21/2023 NA 141 05/21/2023 K 4.3 05/21/2023 K 4.4 05/21/2023 CL 100 05/21/2023 CL 101 05/21/2023 CO2 25 05/21/2023 CO2 21 (L) 05/21/2023 BUN 85 (H) 05/21/2023 BUN 82 (H) 05/21/2023 CREATININE 2.77 (H) 05/21/2023 CREATININE 2.72 (H) 05/21/2023 PT/INR: Lab Results Component Value Date PROTIME 12.3 (H) 05/21/2023 INR 1.1 05/21/2023 Assessment/Plan: Abrasions of R torso, R elbow, B lower legs, B feet, L heel, L arm Xeroform and foam border to all wounds. Recommend to follow up at [facility] wound care center after hospital discharge. Thank you for the consult! I personally obtained the smith and critical portions of the history and physical exam. I reviewed the labs, imaging studies, and electronic medical record. I reviewed the chart documentation and discussed the patient with treatment team members. I have edited the note to reflect my clinical findings and my assessment and plan. Please note, the time of this note does not reflect the time I saw this patient today, but the time of this documentaton. Portions of this note including HPI, ROS, impression/plan, and examination may have been copied forward from admission to today as to provide important historical information essential in contributing to medical decision making. Documentation has been reviewed and edited as necessary to support clinical decision making for today's visit and to reflect my own independent evaluation of this patient. Decision making for today's visit and to reflect my own independent evaluation of this patient. [facility] [employer] Work Phone: 05-22-2023 Consult note Formatting of th is note is different from the original. Images from the original note were not included. [facility] Wound Care CONSULT Note Sadie Barrios AGE: 52 y.o. GENDER: male : 1970 Subjective: HISTORY of PRESENT ILLNESS HPI Sadie Barrios is a 52 y.o. male with MS who presents for a wound consult. Pt was hospitalized on 05/21/23 with renal insufficiency. States he fell and sustained multiple skin wounds. PAST MEDICAL HISTORY Active Ambulatory Problems Diagnosis Date Noted No Active Ambulatory Problems Resolved Ambulatory Problems Diagnosis Date Noted No Resolved Ambulatory Problems Past Medical History: Diagnosis Date Hyperlipidemia Hypertension MS (multiple sclerosis) (HCC) PAST SURGICAL HISTORY No past surgical history on file. FAMILY HISTORY Family History Problem Relation Name Age of Onset Diabetes Father SOCIAL HISTORY Social History Tobacco Use Smoking status: Some Days Smokeless tobacco: Never Tobacco comments: Quit smokin-2 cigarettes every 2-3 days Substance Use Topics Alcohol use: No Drug use: No ALLERGIES No Known Allergies REVIEW OF SYSTEMS Pertinent items are noted in HPI. Objective: BP 137/72 (BP Location: Right arm, Patient Position: Sitting) Pulse 80 Temp 36.8 C (98.2 F) (Temporal) Resp 17 Ht 5' 9 (1.753 m) Wt 130 lb 6.4 oz (59.1 kg) SpO2 99% BMI 19.26 kg/m PHYSICAL EXAM General appearance: in no apparent distress, non-toxic, in no respiratory distress and acyanotic, alert, normal vitals, and cooperative Skin: warm and dry Pulmonary: Normal effort, no respiratory distress, no cyanosis Abdomen: soft, nontender, and nondistended Extremities: no cyanosis, clubbing or edema W: LABS CBC: Lab Results Component Value Date WBC 12.2 (H) 05/21/2023 HGB 17.4 05/21/2023 HCT 51.7 05/21/2023 MCV 90.0 05/21/2023 PLT 206 05/21/2023 BMP: Lab Results Component Value Date NA 143 05/21/2023 NA 141 05/21/2023 K 4.3 05/21/2023 K 4.4 05/21/2023 CL 100 05/21/2023 CL 101 05/21/2023 CO2 25 05/21/2023 CO2 21 (L) 05/21/2023 BUN 85 (H) 05/21/2023 BUN 82 (H) 05/21/2023 CREATININE 2.77 (H) 05/21/2023 CREATININE 2.72 (H) 05/21/2023 PT/INR: Lab Results Component Value Date PROTIME 12.3 (H) 05/21/2023 INR 1.1 05/21/2023 Assessment/Plan: Abrasions of R torso, R elbow, B lower legs, B feet, L heel, L arm Xeroform and foam border to all wounds. Recommend to follow up at [facility] wound care center after hospital discharge. Thank you for the consult! I personally obtained the smith and critical portions of the history and physical exam. I reviewed the labs, imaging studies, and electronic medical record. I reviewed the chart documentation and discussed the patient with treatment team members. I have edited the note to reflect my clinical findings and my assessment and plan. Please note, the time of this note does not reflect the time I saw this patient today, but the time of this documentaton. Portions of this note including HPI, ROS, impression/plan, and examination may have been copied forward from admission to today as to provide important historical information essential in contributing to medical decision making. Documentation has been reviewed and edited as necessary to support clinical decision making for today's visit and to reflect my own independent evaluation of this patient. Decision making for today's visit and to reflect my own independent evaluation of this patient. Vancomycin therapy has been discontinued by Dr. Powers on 05/22/23. Thank you for the consult. Pharmacy signing off for vancomycin dosing. Fermín Langley RPh, PharmD Date: 05/22/23 Time: 11:26 AM Pharmacy Note Vancomycin Consult Non-ALLERGIST/IMMUNOLOGIST Sadie Barrios is a 52 y.o. year old male ordered vancomycin for SSTI; consult from Dr. Gonzalez to manage therapy. Patient Active Problem List Diagnosis Date Noted Renal insufficiency 05/22/2023 Patient has no known allergies. CREATININE Date Value Ref Range Status 05/21/2023 2.77 (H) 0.66 - 1.25 mg/dL Final 05/21/2023 2.72 (H) 0.66 - 1.25 mg/dL Final UREA NITROGEN Date Value Ref Range Status 05/21/2023 85 (H) 9 - 20 mg/dL Final 05/21/2023 82 (H) 9 - 20 mg/dL Final Auto WBC Date Value Ref Range Status 05/21/2023 12.2 (H) 3.6 - 10.7 10*3/uL Final Ht Readings from Last 1 Encounters: 05/22/23 1.753 m (5' 9) Wt Readings from Last 1 Encounters: 05/22/23 59.1 kg (130 lb 6.4 oz) Plan: Will initiate vancomycin 750 mg IV every 24 hours based on predicted AUC of 537 mg/L.hr . Goal AUC is 400-600 mg/L.hr. Random level will be scheduled for 05/23@0600. Thank you for the consult. Will continue to follow. documented in this encounter [facility] 05-22-2023 Note Formatting of this n ote might be different from the original. S/W, follow up I did visit patient in room to notify of transport time to [facility]. Patient did provide me with the correct number to his father, , to notify of transport tonight. I did speak with patient Father. He is aware and in agreement with transfer to [facility]. Patient Father did note the patient the patient was active with [facility]. The Father could not tell me any contact other than the name Elisabeth I did call [facility] to inquire about Services. I was informed that they discharged the patient on 03/30, due to some issues with patient Father being verbal with their aides. [facility] did inform me that the patient is active with [facility] and his Casemanager is Elisabeth Duque at . I did call Elisabeth, I did LVM informing her of patient transfer this evening and did leave my contact info. [facility] 05-22-2023 Miscellaneous Notes Formattin g of this note might be different from the original. S/W, follow up I did visit patient in room to notify of transport time to [facility]. Patient did provide me with the correct number to his father, , to notify of transport tonight. I did speak with patient Father. He is aware and in agreement with transfer to [facility]. Patient Father did note the patient the patient was active with [facility]. The Father could not tell me any contact other than the name Elisabeth I did call [facility] to inquire about Services. I was informed that they discharged the patient on 9/15, due to some issues with patient Father being verbal with their aides. [facility] did inform me that the patient is active with [facility] and his Casemanager is Elisabeth Duque at . I did call Elisabeth, I did LVM informing her of patient transfer this evening and did leave my contact info. S/W, transport Patient discharged to [facility]. Transport set via [facility] at 630p. 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 DC med list sent via [facility] to [facility]. I did visit patyient in his room to notify of transport time. Patient Choice Patient Name: SADIE BARRIOS JR Date of : 1970 All Providers Sent Referral Name: [facility] Phone: [phone] Address: [address] [place] [address] documented in this encounter [facility] 05-22-2023 Note Formatting of this n ote might be different from the original. S/W, transport Patient discharged to [facility]. Transport set via [facility] at 630p. 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 DC med list sent via [facility] to [facility]. I did visit patyient in his room to notify of transport time. [facility] 05-22-2023 Note Formatting of this n ote might be different from the original. Patient Choice Patient Name: SADIE BARRIOS JR Date of : 1970 All Providers Sent Referral Name: [facility] Phone: [phone] Address: [address] [place] [address] [facility] 05-22-2023 Hospital Discharg e instructions Geoff Powers MD - 05/22/2023 2:56 PM EST Continuity of Care Form Patient Name: Sadie Barrios : 1970 Admit date: 05/21/2023 Discharge date: Code Status Order: Full Code Advance Directives: N Admitting Physician: Sathish Gonzalez MD PCP: Gregorio Black MD Discharging Nurse: Discharging Hospital Unit/Room#: 232-07/232-07 A Discharging Unit Phone Number: Emergency Contact: Extended Emergency Contact Information Primary Emergency Contact: Sadie Barrios Relation: Child Past Surgical History: No past surgical history on file. Immunization History: Immunization History Administered Date(s) Administered Tdap 05/21/2023 Active Problems: Medical Problems Problem List * (Principal) Renal insufficiency Isolation/Infection: No active isolations No active infections Nurse Assessment: Last Vital Signs: BP 122/80 Pulse 79 Temp 37.1 C (98.7 F) (Axillary) Resp 19 Ht 5' 9 (1.753 m) Wt 130 lb 6.4 oz (59.1 kg) SpO2 100% BMI 19.26 kg/m Last documented pain score (0-10 scale): Last Weight: Wt Readings from Last 1 Encounters: 05/22/23 130 lb 6.4 oz (59.1 kg) Mental Status: {KATHERINE Patient Mental Status:86981} IV Access: {KATHERINE IV Access:14417} Nursing Mobility/ADLs: Walking {CRUZ ADL:::Independent} Transfer {CRUZ ADL:::Independent} Bathing {CRUZ ADL:80906::Independent} Dressing {CRUZ ADL:44636::Independent} Toileting {CRUZ ADL:45382::Independent} Feeding {CRUZ ADL:58879::Independent} Solution Strategist {CRUZ ADL:::Independent} Med Delivery {yes/no:19799} Wound Care Documentation and Therapy: Wound/Incision 05/21/23 Knee Anterior;Left (Active) Number of days: 0 Wound/Incision 05/21/23 Skin Tear Abdomen - Upper Quadrant Right (Active) Site Assessment [place];Red 05/22/23 1100 Drainage Amount None 05/22/23 1100 Treatments Cleansed 05/22/23 1100 Primary Dressing Foam 05/22/23 1100 Dressing Status Clean, dry & intact 05/22/23 1100 Number of days: 0 Wound/Incision 05/21/23 Skin Tear Forearm Left;Proximal;Dorsal (Active) Site Assessment Dry;[place];Red 05/22/23 1100 Drainage Amount None 05/22/23 1100 Treatments Cleansed 05/22/23 1100 Primary Dressing Foam 05/22/23 1100 Dressing Status Clean, dry & intact 05/22/23 1100 Number of days: 0 Wound/Incision 05/21/23 Skin Tear Forearm Proximal;Right;Dorsal (Active) Site Assessment Dry;[place];Red 05/22/23 1100 Drainage Amount None 05/22/23 1100 Treatments Cleansed 05/22/23 1100 Primary Dressing Foam 05/22/23 1100 Dressing Status Clean, dry & intact 05/22/23 1100 Number of days: 0 Wound/Incision Pressure Injury Sacrum (Active) Site Assessment Clean;Dry;[place];Red 05/22/23 1100 Drainage Amount None 05/22/23 1100 Treatments Cleansed 05/22/23 1100 Primary Dressing Foam 05/22/23 1100 Dressing Status Clean, dry & intact 05/22/23 1100 Number of days: Elimination: Continence: Bowel: {yes/no:07117} Bladder: {yes/no:74845} Urinary Catheter: {KATHERINE Urinary Catheter:91596} Colostomy/Ileostomy/Ileal Conduit: {YES / NO:} Date of Last BM: Intake/Output Summary (Last 24 hours) at 05/22/2023 1455 Last data filed at 05/22/2023 0253 Gross per 24 hour Intake 250 ml Output -- Net 250 ml I/O last 3 completed shifts: In: 250 (4.2 mL/kg) [IV Piggyback:250] Out: - (0 mL/kg) Weight: 59.1 kg Safety Concerns: {KATHERINE Safety Concerns:81362} Impairments/Disabilities: {KATHERINE Impairments/Disabilities:25292} Nutrition Therapy: Current Nutrition Therapy: {KATHERINE Diet List:49597} Routes of Feeding: {routes of feedin} Liquids: {liquid consistency:93938} Daily Fluid Restriction: {daily fluid restriction:96153} Last Modified Barium Swallow with Video (Video Swallowing Test): {done not done:06285} Treatments at the Time of Hospital Discharge: Respiratory Treatments: Oxygen Therapy: {Therapy; copd oxygen:24449} Ventilator: {KATHERINE Ventilator:80546} Rehab Therapies: {GEN THERAPY DISCIPLINE SCAL:2033385} Weight Bearing Status/Restrictions: {POD WEIGHT BEARIN} Other Medical Equipment (for information only, NOT a DME order): {Assistive Devices DME:77603} Other Treatments: Patient's personal belongings (please select all that are sent with patient): {KATHERINE Patient Belongings:68265} RN SIGNATURE: {E-signature:58067} CASE MANAGEMENT/SOCIAL WORK SECTION Inpatient Status Date: Readmission Risk Assessment Score: @READMISSIONRISKDETAILS@ Discharging to Facility/ Agency Name: Address: Phone: Fax: Dialysis Facility (if applicable) Name: Address: Dialysis Schedule: Phone: Fax: [employer] signature: {E-signature:39967} PHYSICIAN SECTION Prognosis: good Condition at Discharge: stable Rehab Potential (if transferring to Rehab): good Recommended Labs or Other Treatments After Discharge: CMP/CBC/CPK in am 05/23/2023 Physician Certification: I certify the above information and transfer of Sadie Barrios is necessary for the continuing treatment of the diagnosis listed and that he requires LTAC for less than 30 days. Update Admission H&P: No change in H&P PHYSICIAN SIGNATURE: documented in this encounter [facility] 05-22-2023 Note PHYSICAL THERAPY [facility] Initial Evaluation Name/MRN: Sadie Barrios ([id number]) Evaluation Date: 05/22/2023 Date of : 1970 Admission Date: 05/21/2023 8:39 PM Age: 52 y.o. Room/Bed: 232-07/232-07 A Discharge Recommendation: SNF Equipment Needed: TBD at next level of care Assessment IMPRESSION: Pt is a 52 y.o. male admitted 05/21 s/p fall at home, reports down for over a day or more per H&P. Imaging (-). Noted to have multiple sores on body. Pt has significant past medical history as indicated impacting pt's current clinical presentation. Pt was previously independent with functional mobility with rollator vs electric w/c. Pt is currently requiring max A x2 person for supine<->sit, mod A x1 for static sitting balance EOB. Pt is currently limited by weakness, fatigue, endurance and is at an increased risk for falls. Pt will benefit from acute skilled PT to address current deficits. Recommend SNF. Diagnosis: admitted 05/21 s/p fall at home, reports down for over a day or more per H&P. Imaging (-). Prognosis: fair Performance Deficits /Impairments: Decreased Functional Mobility, Decreased ROM, Decreased Strength, Decreased Endurance, Decreased Balance, and Decreased Posture Decision Making: Medium Complexity Subjective Pt pleasant and agreeable to therapy session Per CHRIS jaimes for therapy O2 NC intact, PIV Pain: Pt denies any current pain. Past Medical History: Past Medical History: Diagnosis Date Hyperlipidemia Hypertension MS (multiple sclerosis) (HCC) dx 1997 Past Surgical History: No past surgical history on file. Admission Diagnosis: Patient Active Problem List Diagnosis Date Noted Renal insufficiency 05/22/2023 Medical Precautions: No active isolations Proper PPE donned/doffed in accordance with facility standards. Fall Risk: Schmidt Fall Risk Score: 65 (Medium Risk) Precautions/Restrictions: N/A Family/Caregiver Present: none Overall Cognitive Status: WFL- pt followed commands and answered questions appropriately however, pt questionable historian. Overall Orientation Status: Oriented x4 Vision: wears glasses at all times and and are NOT being used during the eval Hearing: normal Social/Functional History Patient admitted from home. Lives With: Alone Type of Home: single family home Home Layout: Two Level Home and Able to Live on Main Level Home Access: Stairs to Enter with Rails (# of stairs: 4) Bathroom Shower/Tub: Shower Chair with Back, Walk in Shower, and Grab Bars Toilet: Standard Home Equipment: rollator and wheelchair - manual Homemaking Responsibilities: Independent Receives Help From: Family and Friend(s) Active Senior Adults Director: Yes Prior Level of Function ADL Assistance: Independent Ambulation Assistance: Independent Device(s) used: rollator vs electric w/c Transfer Assistance: Independent Objective Lower Extremity Assessment AROM: Impaired: Grossly decreased in BLE. Strength: Lower Extremity Strength Right Left Hip Flexion 2- 1 Hip Abduction Hip Extension Hip External Rotation (ER) Hip Internal Rotation (IR) Knee Extension Knee Flexion 2- 1+ Ankle Dorsiflexion (DF) 2- 1 Ankle Plantarflexion (PF) Inversion Eversion Bed Mobility: Supine to sit: Max Assist, x2 Person Assist Sit to supine: Max Assist, x2 Person Assist Pt completes supine<->sit requiring max A x2 person assist for trunk and BLE management. Increased time to complete. Minimal initiation of task. Transfers Unsafe to attempt due to LE weakness, poor sitting balance. Ambulation Did not assess this session. Sensation: WFL Balance: Posture: poor Sitting - Static: Mod Assist Pt demos significant forward flexed posture once in sitting requiring verbal cues and physical assist to correct with poor initiation. Pt requires mod A for static sitting balance EOB with BUE assist. Pt tolerates ~2 minutes sitting EOB then requests return to supine. Outcome Measures AM-PAC How much HELP from another person do you currently need Turning from your back to your side while in a flat bed without using bedrails?: A Little Moving from lying on your back to sitting on the side of a flat bed without using bedrails?: A Lot Moving to and from a bed to a chair (including a wheelchair)?: Total Standing up from a chair using your arms (wheelchair or bedside chair)?: Total Walking in a hospital room?: Total Stair climbing assessed?: No AM-PAC Inpatient Mobility Raw Score (No Stairs) : 8 Plan Pt would benefit from skilled acute PT services to address Strengthening, Balance Training, Functional Mobility Training, Endurance Training, Wheelchair Mobility Training, Neuromuscular Re-Education Training, Pain Management, Safety Education and Training, Patient/Caregiver Training, Equipment Evaluation/Education, and Positioning. Frequency: 5 visits during current hospital admission or until additional recommendations are made (more content not included)... [facility] 05-22-2023 Consult note Formatting of th is note might be different from the original. Vancomycin therapy has been discontinued by Dr. Powers on 05/22/23. Thank you for the consult. Pharmacy signing off for vancomycin dosing. Fermín Langley RPh, PharmD Date: 05/22/23 Time: 11:26 AM [facility] 05-22-2023 Consult note Formatting of th is note is different from the original. Pharmacy Note Vancomycin Consult Non-ALLERGIST/IMMUNOLOGIST Sadie Barrios is a 52 y.o. year old male ordered vancomycin for SSTI; consult from Dr. Gonzalez to manage therapy. Patient Active Problem List Diagnosis Date Noted Renal insufficiency 05/22/2023 Patient has no known allergies. CREATININE Date Value Ref Range Status 05/21/2023 2.77 (H) 0.66 - 1.25 mg/dL Final 05/21/2023 2.72 (H) 0.66 - 1.25 mg/dL Final UREA NITROGEN Date Value Ref Range Status 05/21/2023 85 (H) 9 - 20 mg/dL Final 05/21/2023 82 (H) 9 - 20 mg/dL Final Auto WBC Date Value Ref Range Status 05/21/2023 12.2 (H) 3.6 - 10.7 10*3/uL Final Ht Readings from Last 1 Encounters: 05/22/23 1.753 m (5' 9) Wt Readings from Last 1 Encounters: 05/22/23 59.1 kg (130 lb 6.4 oz) Plan: Will initiate vancomycin 750 mg IV every 24 hours based on predicted AUC of 537 mg/L.hr . Goal AUC is 400-600 mg/L.hr. Random level will be scheduled for 05/23@0600. Thank you for the consult. Will continue to follow. [facility] 05-22-2023 Note History and Physical [facility] Sadie Barrios : 1970 AGE 52 y.o. YEARS Note Date 05/22/2023 Primary Care Physician:Gregorio Black MD Phone None Fax None Current Providers as of 05/21/2023 PCP: Gregorio Black MD Referring Provider: not found, starting on SunMay 21, 2023 12:00 AM Attending Provider: Levy Claros MD, starting on SunMay 21, 2023 8:44 PM (Active) Attending Provider: Dmitry Vazquez MD, starting on SunMay 21, 2023 11:26 PM (Active) Registered Nurse: Louisa Love RN, starting on SunMay 21, 2023 10:08 PM, ending on SunMay 22, 2023 1:52 AM (Inactive) Chief Complaint: Fall HPI: He has MS and sees the [facility] for Ocrevus infusions He reports he is weak all over chronically He had some use of his bilateral upper extremities but can barely move his lower legs This weakness has not changed much recently He was found down by his family, he reports he gets help from his parents at home He reports he as down for over a day or more When I asked how he got on the ground he does not really answer he does not provide a lot of details. He is alert I think he is just holding back information. I ask him about passing out or if he heard any part of his body such as head neck or his joints. He denies. He does admit to being on the ground for a while he does admit to being too weak to get up He does not recall how long he was down He does states he does not take any other medications besides his injections through the old clinic He also admits to feeling very weak He has several areas of sores on his body see below and redness that he does not quantify how long they have been there ER nursing reports that he had extensively bathe him when he presented to the hospital as he was disheveled and unclean Review of Systems: General: Skin: HEENT: Cardiovascular Fever n Rashes n Difficulty chewing n Chest Pain n Chills n Sores n Appetite Loss n Chest Pressure n Fatigue Epistaxis n Orthopnea n Sweats n Hearing loss n Palpitations n GI: Tinnitus GERD n Vision quality RESP: Abdominal Pain n : SOB/GLORIA y Nausea n Hematuria n Cough y Vomiting n Dysuria Productive/Sputum n Hematemesis n NEURO: Urgency Hemoptysis Diarrhea n Headaches n Frequency Wheezing Constipation n Seizures n Times at night urinating Heamatochezia Neuropathy n catheter present MSK: Melena Focal weakness Chronic lower greater than upper extremity weakness Hesitancy Focal Numbness n Incontinence Acute joint pain n Dizzy/Vertigo n Redness n Difficulty speaking nn Heme/Lymph Swelling n Difficulty walking Lymphadenopathy Myalgia n Ataxia Chronic joint pain y Past Medical History: Diagnosis Date Hyperlipidemia Hypertension MS (multiple sclerosis) (HCC) dx 1997 No past surgical history on file. No Known Allergies Medications Prior to Admission: Ocrevious infusions Social History Social History Tobacco Use Smoking status: Some Days Smokeless tobacco: Never Tobacco comments: Quit smokin-2 cigarettes every 2-3 days Substance Use Topics Alcohol use: No Family History Family History Problem Relation Name Age of Onset Diabetes Father Physical Exam Temp (24hrs), Av.7 ?C (98.1 ?F), Min:36.7 ?C (98.1 ?F), Max:36.7 ?C (98.1 ?F) Body mass index is 19.26 kg/m?.BMI Classification: Normal Weight (BMI 18.5-24.9) BP (!) 140/90 Pulse 84 Temp 36.7 ?C (98.1 ?F) (Oral) Resp 15 Ht 5' 9 (1.753 m) Wt 130 lb 6.4 oz (59.1 kg) SpO2 100% BMI 19.26 kg/m? Pulse Ox: SpO2 Av.5 % Min: 95 % Max: 100 % Supplemental O2: O2 Flow Rate (L/min): 2 L/min General appearance: No apparent distress, appears stated age and cooperative with exam HEENT: Normal cephalic, atraumatic without obvious deformity. Pupils equal, round, and reactive to light. Extra ocular muscles intact. Conjunctivae/corneas clear. Neck: Supple, with full range of motion. No jugular venous distention. Trachea midline. No lymphadenopathy. Respiratory: Normal respiratory effort. Clear to auscultation, bilaterally without Rales/Wheezes/Rhonchi. Cardiovascular: Regular rate and rhythm with normal S1/S2 without murmurs, rubs or gallops. Abdomen: Soft, non-tender, non-distended with normal bowel sounds. No rebound or guarding. Musculoskeletal: No clubbing, cyanosis or edema bilaterally. Full range of motion without deformity. Skin: Neurologic: Neurovascularly intact without any focal sensory/motor deficits. Cranial nerves grossly intact. Labs Admission on 05/21/2023 Component Date Value Auto WBC 05/21/2023 12.2 (H) RBC 05/21/2023 5.75 Hemoglobin 05/21/2023 17.4 Hematocrit 05/21/2023 51.7 MCV 05/21/2023 90.0 MCH 05/21/2023 30.3 MCHC 05/21/2023 33.7 RDW 05/21/2023 14.2 Platelets 05/21/2023 206 MPV 05/21/2023 9.6 SODIUM 05/21/2023 143 POTASSIUM 05/21/2023 4.3 CHLORIDE 05/21/2023 100 CARBON DIOXIDE 05/21/2023 25 ANION GAP (more content not included)... [facility] 05-22-2023 History and physical note Images from the original note were not included. [facility] 1970 AGE 52 y.o. YEARS Note Date 05/22/2023 Primary Care Physician:Gregorio lBack MD Phone None Fax None Current Providers as of 05/21/2023 PCP: Gregorio Black MD Referring Provider: not found, starting on SunMay 21, 2023 12:00 AM Attending Provider: Levy Claros MD, starting on SunMay 21, 2023 8:44 PM (Active) Attending Provider: Dmitry Vazquez MD, starting on SunMay 21, 2023 11:26 PM (Active) Registered Nurse: Louisa Love RN, starting on SunMay 21, 2023 10:08 PM, ending on SunMay 22, 2023 1:52 AM (Inactive) Chief Complaint: Fall HPI: He has MS and sees the [facility] for Ocrevus infusions He reports he is weak all over chronically He had some use of his bilateral upper extremities but can barely move his lower legs This weakness has not changed much recently He was found down by his family, he reports he gets help from his parents at home He reports he as down for over a day or more When I asked how he got on the ground he does not really answer he does not provide a lot of details. He is alert I think he is just holding back information. I ask him about passing out or if he heard any part of his body such as head neck or his joints. He denies. He does admit to being on the ground for a while he does admit to being too weak to get up He does not recall how long he was down He does states he does not take any other medications besides his injections through the old clinic He also admits to feeling very weak He has several areas of sores on his body see below and redness that he does not quantify how long they have been there ER nursing reports that he had extensively bathe him when he presented to the hospital as he was disheveled and unclean Review of Systems: General: Skin: HEENT: Cardiovascular Fever n Rashes n Difficulty chewing n Chest Pain n Chills n Sores n Appetite Loss n Chest Pressure n Fatigue Epistaxis n Orthopnea n Sweats n Hearing loss n Palpitations n GI: Tinnitus GERD n Vision quality RESP: Abdominal Pain n : SOB/GLORIA y Nausea n Hematuria n Cough y Vomiting n Dysuria Productive/Sputum n Hematemesis n NEURO: Urgency Hemoptysis Diarrhea n Headaches n Frequency Wheezing Constipation n Seizures n Times at night urinating Heamatochezia Neuropathy n catheter present MSK: Melena Focal weakness Chronic lower greater than upper extremity weakness Hesitancy Focal Numbness n Incontinence Acute joint pain n Dizzy/Vertigo n Redness n Difficulty speaking nn Heme/Lymph Swelling n Difficulty walking Lymphadenopathy Myalgia n Ataxia Chronic joint pain y Past Medical History: Diagnosis Date Hyperlipidemia Hypertension MS (multiple sclerosis) (HCC) dx 1997 No past surgical history on file. No Known Allergies Medications Prior to Admission: Ocrevious infusions Social History Social History Tobacco Use Smoking status: Some Days Smokeless tobacco: Never Tobacco comments: Quit smokin-2 cigarettes every 2-3 days Substance Use Topics Alcohol use: No Family History Family History Problem Relation Name Age of Onset Diabetes Father Physical Exam Temp (24hrs), Av.7 C (98.1 F), Min:36.7 C (98.1 F), Max:36.7 C (98.1 F) Body mass index is 19.26 kg/m .BMI Classification: Normal Weight (BMI 18.5-24.9) BP (!) 140/90 Pulse 84 Temp 36.7 C (98.1 F) (Oral) Resp 15 Ht 5' 9 (1.753 m) Wt 130 lb 6.4 oz (59.1 kg) SpO2 100% BMI 19.26 kg/m Pulse Ox: SpO2 Av.5 % Min: 95 % Max: 100 % Supplemental O2: O2 Flow Rate (L/min): 2 L/min General appearance: No apparent distress, appears stated age and cooperative with exam HEENT: Normal cephalic, atraumatic without obvious deformity. Pupils equal, round, and reactive to light. Extra ocular muscles intact. Conjunctivae/corneas clear. Neck: Supple, with full range of motion. No jugular venous distention. Trachea midline. No lymphadenopathy. Respiratory: Normal respiratory effort. Clear to auscultation, bilaterally without Rales/Wheezes/Rhonchi. Cardiovascular: Regular rate and rhythm with normal S1/S2 without murmurs, rubs or gallops. Abdomen: Soft, non-tender, non-distended with normal bowel sounds. No rebound or guarding. Musculoskeletal: No clubbing, cyanosis or edema bilaterally. Full range of motion without deformity. Skin: Neurologic: Neurovascularly intact without any focal sensory/motor deficits. Cranial nerves grossly intact. Labs Admission on 05/21/2023 Component Date Value Auto WBC 05/21/2023 12.2 (H) RBC 05/21/2023 5.75 Hemoglobin 05/21/2023 17.4 Hematocrit 05/21/2023 51.7 MCV 05/21/2023 90.0 MCH 05/21/2023 30.3 MCHC 05/21/2023 33.7 RDW 05/21/2023 14.2 Platelets 05/21/2023 206 MPV 05/21/2023 9.6 SODIUM 05/21/2023 143 POTASSIUM 05/21/2023 4.3 CHLORIDE 05/21/2023 100 CARBON DIOXIDE 05/21/2023 25 ANION GAP 05/21/2023 18 (H) UREA NITROGEN 05/21/2023 85 (H) CREATININE 05/21/2023 2.77 (H) GLUCOSE 05/21/2023 110 (H) CALCIUM 05/21/2023 9.7 AST (SGOT) 05/21/2023 253 (H) ALT 05/21/2023 65 (H) ALKALINE PHOSPHATASE 05/21/2023 94 ALBUMIN 05/21/2023 4.9 BILIRUBIN, TOTAL 05/21/2023 0.9 TOTAL PROTEIN 05/21/2023 8.8 (H) eGFR 05/21/2023 26.8 (L) ETHANOL IN SER/PLAS 05/21/2023 <0.010 TROPONIN I 05/21/2023 0.056 (H) PROTHROMBIN TIME 05/21/2023 12.3 (H) INR 05/21/2023 1.1 CK 05/21/2023 11,866 (H) THYROID STIMULATING HORM* 05/21/2023 5.225 (H) FREE T4 05/21/2023 1.26 LACTIC ACID 05/21/2023 5.2 (HH) SARS-CoV-2 05/21/2023 Not Detected Respiratory Syncytial Vi* 05/21/2023 Not Detected Influenza A 05/21/2023 Not Detected Influenza B 05/21/2023 Not Detected pH, Venous 05/21/2023 7.314 (L) pCO2, Venous 05/21/2023 48.6 pO2, Venous 05/21/2023 34.9 HCO3, Venous 05/21/2023 24.7 Base Excess, Venous 05/21/2023 -2.3 SO2, Venous 05/21/2023 61.1 Heart Rate 05/22/2023 78 QRSD Interval 05/22/2023 71 QT Interval 05/22/2023 390 QTC Interval 05/22/2023 437 P Largo 05/22/2023 76 QRS Largo 05/22/2023 24 T Wave Largo 05/22/2023 32 PA Interval 05/22/2023 172 EKG Encounter Date: 05/21/23 ECG 12 lead Result Value Heart Rate 78 QRSD Interval 71 QT Interval 390 QTC Interval 437 P Largo 76 QRS Largo 24 T Wave Largo 32 PA Interval 172 Impression Sinus rhythm Atrial premature complexes Borderline low voltage, extremity leads No previous ECG available for comparison Electronically Signed On 05-22-2023 0:19:28 EST by Levy Claros Patient recently received an antibiotic (last 12 hours) Date/Time Action Medication Dose Rate 05/22/23 0045 New Bag vancomycin IVPB 1250 mg in 250 mL NS (premix) 1,250 mg 167 mL/hr 05/21/23 2249 New Bag cefepime (Maxipime) 2,000 mg in sodium chloride 0.9 % 50 mL IVPB Mini-Bag Plus 2,000 mg Pending Labs Order Current Status Blood gas, venous Collected (05/21/232113) Blood culture Site #1 - Suspected Infection In process Blood culture Site #2 - Suspected Infection In process Lactic acid with reflex In process Assessment/Plan and Medical Decision Making Found down ? Fall or cellulitis/sepsis from sores 52-year-old presents from home after being found down He has MS and has a lot of weakness and is covered in disheveled and has multiple sores on his body. Clearly this is a safety issue about him not able to care for himself at home and needs to be admitted He does have redness of his lower extremities multiple sores that could be infected and I agree with covering with antibiotics. As far as infectious labs He was afebrile, he had 1 pulse of 92 otherwise respiratory rate blood pressure normal His white blood cell count was elevated at 12.2 his lactic acid was initially elevated at 5.2 but has since normalized His urine did not appear to be grossly infected on imaging He had x-rays of his knee showing a trace effusion x-rays of his elbow not showing any sign of infection CT of his cervical spine and head were done in the emergency room CAT scan of his chest showed emphysema only CAT scan of his abdomen pelvis did not show any sign of active infection. Which leaves the main source of infection present if any of cellulitis Broad-spectrum coverage of vancomycin and Zosyn Wound nurse consult Rhabdo Patient CK significantly elevated close to 11,000 on admission He also has decreased creatinine of 2.7 recent creatinine not available so I am unsure if he has acute or chronic renal failure Nevertheless his CKs likely due to being down on the ground we will treat him aggressively with fluids And follow his CK He already received some boluses in the emergency room and we will continue him on fluids at 150 cc/h He does have a condom cath present and is producing urine Elevated creatinine Unknown if acute or chronic renal insufficiency He is being hydrated above due to his elevated CK/rhabdo Lab Results Component Value Date CREATININE 2.77 (H) 05/21/2023 History of multiple sclerosis He sees the [facility] for Ocrevus and injections My understanding is symptoms are fairly stable but at baseline he does have very poor physical functioning dispo Likely will need alternative discharge plan/place. He is telling me that his family does help amount at home but he is not providing very detailed information from my understanding his parents help him but do not supervise him 24 hours. -DVT prophylaxis: [x] Lovenox [] Heparin [] SCDs [x] Encourage ambulation [] Already on Anticoagulation [] Pharmocologic prophylaxis on hold to due risk bleed/procedure 05/22/2023 Sadie Barrios [id number] Any scheduled follow up appointments Extended Emergency Contact Information Primary Emergency Contact: Sadie Barrios Relation: Child Portions of this note may be electronically transcribed. Please forward a copy of this H&P to the primary care physician. [facility] Phone: 05-22-2023 History and physical note Images from the original note were not included. History and Physical [facility] Sadie Barrios : 1970 AGE 52 y.o. YEARS Note Date 05/22/2023 Primary Care Physician:Gregorio Black MD Phone None Fax None Current Providers as of 05/21/2023 PCP: Gregorio Black MD Referring Provider: not found, starting on SunMay 21, 2023 12:00 AM Attending Provider: Levy Claros MD, starting on SunMay 21, 2023 8:44 PM (Active) Attending Provider: Dmitry Vazquez MD, starting on SunMay 21, 2023 11:26 PM (Active) Registered Nurse: Louisa Love RN, starting on SunMay 21, 2023 10:08 PM, ending on SunMay 22, 2023 1:52 AM (Inactive) Chief Complaint: Fall HPI: He has MS and sees the [facility] for Ocrevus infusions He reports he is weak all over chronically He had some use of his bilateral upper extremities but can barely move his lower legs This weakness has not changed much recently He was found down by his family, he reports he gets help from his parents at home He reports he as down for over a day or more When I asked how he got on the ground he does not really answer he does not provide a lot of details. He is alert I think he is just holding back information. I ask him about passing out or if he heard any part of his body such as head neck or his joints. He denies. He does admit to being on the ground for a while he does admit to being too weak to get up He does not recall how long he was down He does states he does not take any other medications besides his injections through the old clinic He also admits to feeling very weak He has several areas of sores on his body see below and redness that he does not quantify how long they have been there ER nursing reports that he had extensively bathe him when he presented to the hospital as he was disheveled and unclean Review of Systems: General: Skin: HEENT: Cardiovascular Fever n Rashes n Difficulty chewing n Chest Pain n Chills n Sores n Appetite Loss n Chest Pressure n Fatigue Epistaxis n Orthopnea n Sweats n Hearing loss n Palpitations n GI: Tinnitus GERD n Vision quality RESP: Abdominal Pain n : SOB/GLORIA y Nausea n Hematuria n Cough y Vomiting n Dysuria Productive/Sputum n Hematemesis n NEURO: Urgency Hemoptysis Diarrhea n Headaches n Frequency Wheezing Constipation n Seizures n Times at night urinating Heamatochezia Neuropathy n catheter present MSK: Melena Focal weakness Chronic lower greater than upper extremity weakness Hesitancy Focal Numbness n Incontinence Acute joint pain n Dizzy/Vertigo n Redness n Difficulty speaking nn Heme/Lymph Swelling n Difficulty walking Lymphadenopathy Myalgia n Ataxia Chronic joint pain y Past Medical History: Diagnosis Date Hyperlipidemia Hypertension MS (multiple sclerosis) (HCC) dx 1998 No past surgical history on file. No Known Allergies Medications Prior to Admission: Ocrevious infusions Social History Social History Tobacco Use Smoking status: Some Days Smokeless tobacco: Never Tobacco comments: Quit smokin-2 cigarettes every 2-3 days Substance Use Topics Alcohol use: No Family History Family History Problem Relation Name Age of Onset Diabetes Father Physical Exam Temp (24hrs), Av.7 C (98.1 F), Min:36.7 C (98.1 F), Max:36.7 C (98.1 F) Body mass index is 19.26 kg/m .BMI Classification: Normal Weight (BMI 18.5-24.9) BP (!) 140/90 Pulse 84 Temp 36.7 C (98.1 F) (Oral) Resp 15 Ht 5' 9 (1.753 m) Wt 130 lb 6.4 oz (59.1 kg) SpO2 100% BMI 19.26 kg/m Pulse Ox: SpO2 Av.5 % Min: 95 % Max: 100 % Supplemental O2: O2 Flow Rate (L/min): 2 L/min General appearance: No apparent distress, appears stated age and cooperative with exam HEENT: Normal cephalic, atraumatic without obvious deformity. Pupils equal, round, and reactive to light. Extra ocular muscles intact. Conjunctivae/corneas clear. Neck: Supple, with full range of motion. No jugular venous distention. Trachea midline. No lymphadenopathy. Respiratory: Normal respiratory effort. Clear to auscultation, bilaterally without Rales/Wheezes/Rhonchi. Cardiovascular: Regular rate and rhythm with normal S1/S2 without murmurs, rubs or gallops. Abdomen: Soft, non-tender, non-distended with normal bowel sounds. No rebound or guarding. Musculoskeletal: No clubbing, cyanosis or edema bilaterally. Full range of motion without deformity. Skin: Neurologic: Neurovascularly intact without any focal sensory/motor deficits. Cranial nerves grossly intact. Labs Admission on 05/21/2023 Component Date Value Auto WBC 05/21/2023 12.2 (H) RBC 05/21/2023 5.75 Hemoglobin 05/21/2023 17.4 Hematocrit 05/21/2023 51.7 MCV 05/21/2023 90.0 MCH 05/21/2023 30.3 MCHC 05/21/2023 33.7 RDW 05/21/2023 14.2 Platelets 05/21/2023 206 MPV 05/21/2023 9.6 SODIUM 05/21/2023 143 POTASSIUM 05/21/2023 4.3 CHLORIDE 05/21/2023 100 CARBON DIOXIDE 05/21/2023 25 ANION GAP 05/21/2023 18 (H) UREA NITROGEN 05/21/2023 85 (H) CREATININE 05/21/2023 2.77 (H) GLUCOSE 05/21/2023 110 (H) CALCIUM 05/21/2023 9.7 AST (SGOT) 05/21/2023 253 (H) ALT 05/21/2023 65 (H) ALKALINE PHOSPHATASE 05/21/2023 94 ALBUMIN 05/21/2023 4.9 BILIRUBIN, TOTAL 05/21/2023 0.9 TOTAL PROTEIN 05/21/2023 8.8 (H) eGFR 05/21/2023 26.8 (L) ETHANOL IN SER/PLAS 05/21/2023 <0.010 TROPONIN I 05/21/2023 0.056 (H) PROTHROMBIN TIME 05/21/2023 12.3 (H) INR 05/21/2023 1.1 CK 05/21/2023 11,866 (H) THYROID STIMULATING HORM* 05/21/2023 5.225 (H) FREE T4 05/21/2023 1.26 LACTIC ACID 05/21/2023 5.2 (HH) SARS-CoV-2 05/21/2023 Not Detected Respiratory Syncytial Vi* 05/21/2023 Not Detected Influenza A 05/21/2023 Not Detected Influenza B 05/21/2023 Not Detected pH, Venous 05/21/2023 7.314 (L) pCO2, Venous 05/21/2023 48.6 pO2, Venous 05/21/2023 34.9 HCO3, Venous 05/21/2023 24.7 Base Excess, Venous 05/21/2023 -2.3 SO2, Venous 05/21/2023 61.1 Heart Rate 05/22/2023 78 QRSD Interval 05/22/2023 71 QT Interval 05/22/2023 390 QTC Interval 05/22/2023 437 P Largo 05/22/2023 76 QRS Largo 05/22/2023 24 T Wave Largo 05/22/2023 32 PA Interval 05/22/2023 172 EKG Encounter Date: 05/21/23 ECG 12 lead Result Value Heart Rate 78 QRSD Interval 71 QT Interval 390 QTC Interval 437 P Largo 76 QRS Largo 24 T Wave Largo 32 PA Interval 172 Impression Sinus rhythm Atrial premature complexes Borderline low voltage, extremity leads No previous ECG available for comparison Electronically Signed On 05-22-2023 0:19:28 EST by Levy Claros Patient recently received an antibiotic (last 12 hours) Date/Time Action Medication Dose Rate 05/22/23 0045 New Bag vancomycin IVPB 1250 mg in 250 mL NS (premix) 1,250 mg 167 mL/hr 05/21/23 2389 New Bag cefepime (Maxipime) 2,000 mg in sodium chloride 0.9 % 50 mL IVPB Mini-Bag Plus 2,000 mg Pending Labs Order Current Status Blood gas, venous Collected (05/21/232113) Blood culture Site #1 - Suspected Infection In process Blood culture Site #2 - Suspected Infection In process Lactic acid with reflex In process Assessment/Plan and Medical Decision Making Found down ? Fall or cellulitis/sepsis from sores 52-year-old presents from home after being found down He has MS and has a lot of weakness and is covered in disheveled and has multiple sores on his body. Clearly this is a safety issue about him not able to care for himself at home and needs to be admitted He does have redness of his lower extremities multiple sores that could be infected and I agree with covering with antibiotics. As far as infectious labs He was afebrile, he had 1 pulse of 92 otherwise respiratory rate blood pressure normal His white blood cell count was elevated at 12.2 his lactic acid was initially elevated at 5.2 but has since normalized His urine did not appear to be grossly infected on imaging He had x-rays of his knee showing a trace effusion x-rays of his elbow not showing any sign of infection CT of his cervical spine and head were done in the emergency room CAT scan of his chest showed emphysema only CAT scan of his abdomen pelvis did not show any sign of active infection. Which leaves the main source of infection present if any of cellulitis Broad-spectrum coverage of vancomycin and Zosyn Wound nurse consult Rhabdo Patient CK significantly elevated close to 11,000 on admission He also has decreased creatinine of 2.7 recent creatinine not available so I am unsure if he has acute or chronic renal failure Nevertheless his CKs likely due to being down on the ground we will treat him aggressively with fluids And follow his CK He already received some boluses in the emergency room and we will continue him on fluids at 150 cc/h He does have a condom cath present and is producing urine Elevated creatinine Unknown if acute or chronic renal insufficiency He is being hydrated above due to his elevated CK/rhabdo Lab Results Component Value Date CREATININE 2.77 (H) 05/21/2023 History of multiple sclerosis He sees the [facility] for Ocrevus and injections My understanding is symptoms are fairly stable but at baseline he does have very poor physical functioning dispo Likely will need alternative discharge plan/place. He is telling me that his family does help amount at home but he is not providing very detailed information from my understanding his parents help him but do not supervise him 24 hours. -DVT prophylaxis: [x] Lovenox [] Heparin [] SCDs [x] Encourage ambulation [] Already on Anticoagulation [] Pharmocologic prophylaxis on hold to due risk bleed/procedure 05/22/2023 Sadie Barrios [id number] Any scheduled follow up appointments Extended Emergency Contact Information Primary Emergency Contact: Sadie Barrios Relation: Child Portions of this note may be electronically transcribed. Please forward a copy of this H&P to the primary care physician. documented in this encounter [facility] 05-22-2023 Emergency department Note Pt was incontinent of urine on the bed and not into the urinal. Pt states he did not know he urinated. Pt still refusing straight catheterization. Pt agreeable to external catheter placement. Louisa Love RN 05/22/23122 [facility] 05-22-2023 Emergency department Note Pt was incontinent of urine on the bed and not into the urinal. Pt states he did not know he urinated. Pt still refusing straight catheterization. Pt agreeable to external catheter placement. Louisa Love RN 05/22/23122 Pt tried using urinal to give sample. Pt unable to go at this time. Pt refusing straight catheterization. Pt requesting to keep urinal so he can keep trying to go. Louisa Love RN 05/22/23120 Lab called states pt lactic is 5.2. Dr Claros notified Anabella Garces RN 05/21/23 2145 Emergency Department Encounter [facility] ED Patient: Sadie Barrios : 1970 Date of Evaluation: 05/21/2023 ED Provider: Levy Claros MD Note: I wore an N95 mask and gloves during this encounter. CHIEF COMPLAINT: Fall HPI: Sadie Barrios is a 52 y.o. 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 Patient reports yesterday he fell, he is unable to explain mechanism for fall, reports he has been laying on the ground for an unknown duration of time, he endorses pain/injury involving the left knee, bilateral elbows, and forehead, denies pain or injury elsewhere including the chest abdomen or pelvis, back, or elsewhere throughout the extremities, he denies numbness or weakness, shortness of breath, fever chills, cough, abdominal pain. REVIEW OF SYSTEMS: Pertinent positives and negatives as per HPI. HISTORIES: PAST MEDICAL HISTORY: as per HPI SOCIAL HISTORY: As per HPI MEDICATIONS: Nursing notes and EMR reviewed ALLERGIES: Nursing notes and EMR reviewed PHYSICAL EXAM: Vital signs: reviewed Gen: Alert, chronically ill-appearing, appears malnourished Eye: normal conjunctiva, pupils midsized, symmetrical Neck: No midline cervical tenderness, step-offs or deformities HEENT: No visible facial trauma, no scalp contusion, no scalp tenderness Respiratory: nonlabored respiration, bilateral breath sounds present, no chest wall tenderness, wound on the anterior chest/abdomen without surrounding erythema warmth drainage, or palpable deformity or tenderness Cardiovascular: Normal rate, regular rhythm, distal pulses palpable in all extremities Gastrointestinal: Soft, nontender, nondistended Integumentary: stage I gluteal decubitus wound without surrounding erythema warmth or drainage Musculoskeletal: Tolerates range of motion bilateral shoulders, elbows, wrists RUE: Abrasion wounds in the right elbow without palpable bony deformity, no tenderness or deformity elsewhere throughout the right upper extremity LUE: Abrasion wounds on the left elbow without palpable bony deformity, no tenderness or deformity elsewhere throughout the left upper extremity RLE: Subacute/chronic wound on the right heel without surrounding erythema warmth or drainage, no tenderness or deformity elsewhere throughout the right lower extremity LLE: subacute appearing wound inferior to the left patella without palpable bony deformity, no erythema warmth or drainage Back: No midline thoracic or lumbar tenderness step-offs or deformities Neurologic: GCS 15, full strength bilateral shoulder flexion, full strength bilateral ankle plantarflexion, gross sensory intact all extremities, seemingly answering questions appropriately, no facial asymmetry, follows commands, [id number] dysmetria present MEDICAL DECISION MAKING: Medications Tdap (BoostRIX) vaccine 0.5 mL (has no administration in time range) acetaminophen (Tylenol) tablet 1,000 mg (has no administration in time range) sodium chloride 0.9 % bolus 1,000 mL (has no administration in time range) Sadie Barrios is a 52 y.o. male who presents as above, reports fall yesterday, wounds/injury bilateral elbows left knee, wound on the anterior abdomen, reports head injury, unknown downtime on the ground, he appears chronically ill and malnourished, presentation concerning for traumatic injuries, metabolic disturbance, dysrhythmia, will obtain work-up to evaluate including CT head, cervical spine, chest admitted pelvis, bilateral elbows, left knee, broad laboratory valuation, EKG. We will treat with IV fluids, Tylenol, tetanus update, thiamine. Labs obtained, interpreted by me, notable for creatinine 2.77 no recent labs available for comparison, mild AST transaminitis otherwise unremarkable LFTs, WBC 12.2, lactate 5.2-will trend following IV fluids -given possibility of an infectious process we will treat with empiric vancomycin and cefepime pending further work-up results, viral panel negative for COVID influenza and RSV, VBG without acidosis, anion gap 18, bicarb 25 urinalysis pending, CK 11,866 -treating with IV fluids EKG obtained, per my interpretation, notable for this rhythm, PAC, no acute ischemic ST segment changes. Troponin 0.056, will require further cardiac evaluation as an inpatient, suspect component related to renal dysfunction CT head per radiologist interpretation, no acute findings CT C-spine per radiologist interpretation, no acute findings CT chest abdomen pelvis per radiologist interpretation no acute findings B/L elbows x-ray obtained, interpreted per radiologist no acute findings Left knee x-ray obtained, interpreted per radiologist no acute osseous abnormality of the left knee, mild degenerative narrowing involving the medial compartment of the knee, trace suprapatellar effusion Patient require hospitalization for further evaluation and management including social work consult, nephrology consult, further IV fluids as indicated. Disposition pending repeat lactate with anticipatory plan for telemetry admission if downtrending, otherwise will require ICU consult for admission, discussed with admitting Dr. Gonzalez-in agreement with plan. DIAGNOSIS: Rhabdomyolysis, renal insufficiency, multiple wounds DISPOSITION: Admission CRITICAL CARE A total of 35 minutes was spent on critical-care time. There was a concern for clinically significant/life threatening deterioration in the patient's condition which required my urgent intervention. Time was spent on initial evaluation, reassessment, continuous bedside management, reviewing documentation, reviewing laboratory data and imaging studies, discussions with patient and/or family, and/or complicated medical decision making. This critical-care time is exclusive of any time spent on teaching, procedures, or critical care time documented by other physicians. Comment: Please note this report has been produced using speech recognition software and may contain errors related to that system including errors in grammar, punctuation, and spelling, as well as words and phrases that may be inappropriate. If there are any questions or concerns please feel free to contact the dictating provider for clarification. Levy Claros MD Acute Care [facility] Levy Claros MD 05/22/23 0016 I did not participate in the care of this patient Dmitry Vazquez MD 05/22/23 0009 C/o fall earlier today. Pt on ground for unknown amount of time. Voice is raspy. Pt is A&Ox4 a baseline, pt lives alone at home. Bed: 15 Expected date: Expected time: Means of arrival: Comments: ANGELA Garces RN 05/21/232039 documented in this encounter [facility] 05-21-2023 Emergency department Note Pt tried using urinal to give sample. Pt unable to go at this time. Pt refusing straight catheterization. Pt requesting to keep urinal so he can keep trying to go. Louisa Love RN 05/22/23 0121 [facility] 05-21-2023 Emergency department Note Lab called states pt lactic is 5.2. Dr Claros notified Anabella Garces RN 05/21/232144 [facility] 05-21-2023 Note NOTE: This result is for medical treatment only. Analysis performed using non-forensic procedures. [facility] 05-21-2023 Emergency department Note Bed: 15 Expected date: Expected time: Means of arrival: Comments: ANGELA Garces RN 05/21/232039 [facility] 05-21-2023 Emergency department Triage note C/o fall earlier today. Pt on ground for unknown amount of time. Voice is raspy. Pt is A&Ox4 a baseline, pt lives alone at home. [facility] 05-21-2023 Physician Emergen cy department Note Emergency Department Encounter [facility] ED Patient: Sadie Barrios : 1970 Date of Evaluation: 05/21/2023 ED Provider: Levy Claros MD Note: I wore an N95 mask and gloves during this encounter. CHIEF COMPLAINT: Fall HPI: Sadie Barrios is a 52 y.o. 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 Patient reports yesterday he fell, he is unable to explain mechanism for fall, reports he has been laying on the ground for an unknown duration of time, he endorses pain/injury involving the left knee, bilateral elbows, and forehead, denies pain or injury elsewhere including the chest abdomen or pelvis, back, or elsewhere throughout the extremities, he denies numbness or weakness, shortness of breath, fever chills, cough, abdominal pain. REVIEW OF SYSTEMS: Pertinent positives and negatives as per HPI. HISTORIES: PAST MEDICAL HISTORY: as per HPI SOCIAL HISTORY: As per HPI MEDICATIONS: Nursing notes and EMR reviewed ALLERGIES: Nursing notes and EMR reviewed PHYSICAL EXAM: Vital signs: reviewed Gen: Alert, chronically ill-appearing, appears malnourished Eye: normal conjunctiva, pupils midsized, symmetrical Neck: No midline cervical tenderness, step-offs or deformities HEENT: No visible facial trauma, no scalp contusion, no scalp tenderness Respiratory: nonlabored respiration, bilateral breath sounds present, no chest wall tenderness, wound on the anterior chest/abdomen without surrounding erythema warmth drainage, or palpable deformity or tenderness Cardiovascular: Normal rate, regular rhythm, distal pulses palpable in all extremities Gastrointestinal: Soft, nontender, nondistended Integumentary: stage I gluteal decubitus wound without surrounding erythema warmth or drainage Musculoskeletal: Tolerates range of motion bilateral shoulders, elbows, wrists RUE: Abrasion wounds in the right elbow without palpable bony deformity, no tenderness or deformity elsewhere throughout the right upper extremity LUE: Abrasion wounds on the left elbow without palpable bony deformity, no tenderness or deformity elsewhere throughout the left upper extremity RLE: Subacute/chronic wound on the right heel without surrounding erythema warmth or drainage, no tenderness or deformity elsewhere throughout the right lower extremity LLE: subacute appearing wound inferior to the left patella without palpable bony deformity, no erythema warmth or drainage Back: No midline thoracic or lumbar tenderness step-offs or deformities Neurologic: GCS 15, full strength bilateral shoulder flexion, full strength bilateral ankle plantarflexion, gross sensory intact all extremities, seemingly answering questions appropriately, no facial asymmetry, follows commands, [id number] dysmetria present MEDICAL DECISION MAKING: Medications Tdap (BoostRIX) vaccine 0.5 mL (has no administration in time range) acetaminophen (Tylenol) tablet 1,000 mg (has no administration in time range) sodium chloride 0.9 % bolus 1,000 mL (has no administration in time range) Sadie Barrios is a 52 y.o. male who presents as above, reports fall yesterday, wounds/injury bilateral elbows left knee, wound on the anterior abdomen, reports head injury, unknown downtime on the ground, he appears chronically ill and malnourished, presentation concerning for traumatic injuries, metabolic disturbance, dysrhythmia, will obtain work-up to evaluate including CT head, cervical spine, chest admitted pelvis, bilateral elbows, left knee, broad laboratory valuation, EKG. We will treat with IV fluids, Tylenol, tetanus update, thiamine. Labs obtained, interpreted by me, notable for creatinine 2.77 no recent labs available for comparison, mild AST transaminitis otherwise unremarkable LFTs, WBC 12.2, lactate 5.2-will trend following IV fluids -given possibility of an infectious process we will treat with empiric vancomycin and cefepime pending further work-up results, viral panel negative for COVID influenza and RSV, VBG without acidosis, anion gap 18, bicarb 25 urinalysis pending, CK 11,866 -treating with IV fluids EKG obtained, per my interpretation, notable for this rhythm, PAC, no acute ischemic ST segment changes. Troponin 0.056, will require further cardiac evaluation as an inpatient, suspect component related to renal dysfunction CT head per radiologist interpretation, no acute findings CT C-spine per radiologist interpretation, no acute findings CT chest abdomen pelvis per radiologist interpretation no acute findings B/L elbows x-ray obtained, interpreted per radiologist no acute findings Left knee x-ray obtained, interpreted per radiologist no acute osseous abnormality of the left knee, mild degenerative narrowing involving the medial compartment of the knee, trace suprapatellar effusion Patient require hospitalization for further evaluation and management including social work consult, nephrology consult, further IV fluids as indicated. Disposition pending repeat lactate with anticipatory plan for telemetry admission if downtrending, otherwise will require ICU consult for admission, discussed with admitting Dr. Gonzalez-in agreement with plan. DIAGNOSIS: Rhabdomyolysis, renal insufficiency, multiple wounds DISPOSITION: Admission CRITICAL CARE A total of 35 minutes was spent on critical-care time. There was a concern for clinically significant/life threatening deterioration in the patient's condition which required my urgent intervention. Time was spent on initial evaluation, reassessment, continuous bedside management, reviewing documentation, reviewing laboratory data and imaging studies, discussions with patient and/or family, and/or complicated medical decision making. This critical-care time is exclusive of any time spent on teaching, procedures, or critical care time documented by other physicians. Comment: Please note this report has been produced using speech recognition software and may contain errors related to that system including errors in grammar, punctuation, and spelling, as well as words and phrases that may be inappropriate. If there are any questions or concerns please feel free to contact the dictating provider for clarification. Levy Claros MD [facility] Levy Claros MD 05/22/23 0016 [facility] 05-21-2023 Physician Emergen cy department Note I did not participate in the care of this patient Dmitry Vazquez MD 05/22/23 0009 [facility] Evaluation note Diagnosis Renal insufficiency- Primary Unspecified disorder of kidney and ureter Renal insufficiency Unspecified disorder of kidney and ureter Multiple wounds Open wound(s) (multiple) of unspecified site(s), without mention of complication Non-traumatic rhabdomyolysis [facility]No assessment information availableW[facility] Work Phone: Reason for referral (narrative)No reason for referral information availableWMain Campus Medical Center Work Phone: Summary Purpose Family History No Family History Records FoundNo Family History Records FoundNo Family History Records Found Advance Directives No Advanced Directives Records FoundLatest Code Status on File Code Status Date Activated Date Inactivated Comments Full Code 05/22/2023 4:29 AM 05/22/2023 8:23 PM Chief Complaint and Reason for Visit Chief Complaint ALF LABWORK ALF LAB WORK Chief Complaint ALF LABWORK ALF LAB WORK ALF LAB WORK LABWORK Chief Complaint ALF LABWORK ALF LAB WORK ALF LAB WORK LABWORK ALF LAB WORK Chief Complaint ALF LAB WOR K ALF LAB WORK LABWORK ALF LAB WORK LABWORK Chief Complaint ALF LABWORK Chief Complaint Admit Date ALF LAB WORK June 02 5:00am LABWORK June 09, 2024 5:00am LABWORK July 07, 2024 5:00am ALF LAB WORK July 28, 2024 4:00am ALF LAB WORK August 07, 2024 5:00am ALF LAB WORK September 02 4:00am Chief Complaint Admit Date ALF LAB WORK September 02 4:00am ALF LAB WORK November 05, 2024 5 :00am ALF LAB WORK December 04, 2024 5:0 0am Chief Complaint Admit Date ALF LAB WORK November 05, 2024 5 :00am ALF LAB WORK December 01, 2024 5:0 0am ALF LAB WORK December 04, 2024 5:0 0am Additional Source Comments (unrecognized sect ion and content) No Status Records FoundNo Status Records FoundNo Status Records Found INFORMATION SOURCE (unrecogn ized section and content) DATE CREATED AUTHOR 08/20/2018 [employer] DATE CREATED AUTHOR AUTHOR'S ORGANIZ ATION 06/18/2023 [employer] [facility] DATE CREATED AUTHOR AUTHOR'S ORGANIZ ATION 01/11/2025 [facility] Reason for Visit (unrecogniz ed section and content) Reason Comments Fall Specialty Diagnoses / Procedures Referred By Contrandi t Referred To Contact Diagnoses Multiple wounds Renal insufficiency Non-traumatic rhabdomyolysis Procedures [id number].[id number] Sathish Gonzalez MD [address] [facility] [address] [place] [address] [facility] [address] [id number] Referral ID Status Reason Start Date Expiration Date Visits Re quested Visits Authorized [id number] 1 1 Scheduled Active and Recently Administ ered Medications (unrecognized section and content) Medication Order 05/20/2023 05/21/202305/22/2023 acetaminophen (Tylenol) tablet 1,000 mg (COMPLETED) 1,000 mg, Oral, Once, On Sun05/21/23 at 2100, For 1 dose, Maximum dose of acetaminophen is 4000 mg from all sources in 24 hours. 2149 (Given - Provider: Louisa Love RN) cefepime (Maxipime) 2,000 mg in sodium chloride 0.9 % 50 mL IVPB Mini-Bag Plus (COMPLETED) 2,000 mg, IntraVENous, Administer over 30 Minutes, Once, On Sun05/21/23 at 2210, For 1 dose, Mini-Bag Plus bag, Suspected Indication (Select all that apply): Sepsis of Unknown Etiology 2248 (New Bag - Provider: Louisa Love RN)2318 (Stopped - Provider: Louisa Love RN) enoxaparin (Lovenox) syringe 30 mg 30 mg, SubCUTAneous, Every 24 hours scheduled (Daily), First dose on Sun05/22/23 at 0900, Renal dosing, Indication of Use: Prophylaxis-DVT/PE, Indications: Prophylaxis of Venous Thromboembolism 1500 (Not Given - Provider: rPetty Guevara RN - Reason: Other - Comment: not received from pharmacy pt being discharged in an hour) piperacillin-tazobactam (Zosyn) 3,375 mg in sodium chloride 0.9 % 50 mL IVPB Mini-Bag Plus (CANCELED) 3,375 mg, IntraVENous, at 12.5 mL/hr, Administer over 4 Hours, Every 8 hours, First dose on Sun05/22/23 at 0700, Mini-Bag Plus bag, Suspected Indication (Select all that apply): Skin and Soft Tissue Infection 0700 (New Bag - Prov ider: Kirsten Palacios RN)1100 (Stopped - Provider: Pretty Guevara RN) sodium chloride 0.9 % bolus 1,000 mL (COMPLETED) 1,000 mL, IntraVENous, at 1,000 mL/hr, Administer over 1 Hours, Once, On Sun05/21/23 at 2100, For 1 dose 2156 (New Bag - Provider: Louisa Love RN)2256 (Stopped - Provider: Louisa Love RN) sodium chloride 0.9 % bolus 1,000 mL (COMPLETED) 1,000 mL, IntraVENous, at 1,000 mL/hr, Administer over 1 Hours, Once, On Sun05/21/23 at 2150, For 1 dose 2152 (New Bag - Provider: Louisa Love RN)2252 (Stopped - Provider: Louisa Love RN) thiamine (Vitamin B1) injection 200 mg (COMPLETED) 200 mg, IntraVENous, Once, On Sun05/22/23 at 0000, For 1 dose 0042 (Given - Provid er: Anabella Garces RN) vancomycin IVPB 1250 mg in 250 mL NS (premix) (COMPLETED) 1,250 mg (rounded from 1,182 mg = 20 mg/kg 59.1 kg), IntraVENous, Administer over 90 Minutes, Once, On Sun05/22/23 at 0100, For 1 dose, premix bag, Suspected Indication (Select all that apply): Sepsis of Unknown Etiology 0045 (New Bag - Prov ider: Anabella Garces RN)0253 (Stopped - Provider: Anabella Garces RN) Xeroform Petrolat Gauze 5x9 external pad 1 each 1 each, Topical, Daily, First dose on Sun05/22/23 at 1615, Apply to all wound areas daily. Cover with foam dressing. 1900 (Canceled Entry - Provider: Automatic Discharge Provider - Comment: Automatically canceled at discontinue of medication order) Continuous Medication Order 05/20/2023 05/21/2023 05/22/2023 sodium chloride 0.9 % infusion 150 mL/hr, IntraVENous, Continuous, Starting on Sun05/22/23 at 0130 0145 (New Bag - Prov ider: Louisa Love RN)0828 (New Bag - Provider: Sneha Kay RN) PRN Medication Order 05/20/2023 05/21/2023 05/22/2023 acetaminophen (Tylenol) suppository 650 mg(Linked Group 1) 650 mg, Rectal, Every 6 hours PRN, mild pain (1-3), fever, For temp greater than 100.4 F (38 C), Starting on Sun05/22/23 at 0429, Administer if oral route cannot be used. Maximum dose of acetaminophen is 4000 mg from all sources in 24 hours. acetaminophen (Tylenol) tablet 650 mg(Linked Group 1) 650 mg, Oral, Every 6 hours PRN, mild pain (1-3), fever, For temp greater than 100.4 F (38 C), Starting on Sun05/22/23 at 042, Maximum dose of acetaminophen is 4000 mg from all sources in 24 hours. ondansetron (Zofran) injection 4 mg(Linked Group 2) 4 mg, IntraVENous, Every 6 hours PRN, nausea, vomiting, Starting on Sun05/22/23 at 428, 1st Line. Give IV if patient is unable to take orally. If inadequate response within 60 minutes, proceed to next-line agent or contact provider if no further options ordered. ondansetron ODT (Zofran-ODT) disintegrating tablet 4 mg(Linked Group 2) 4 mg, Oral, Every 8 hours PRN, nausea, vomiting, Starting on Sun05/22/23 at 428, 1st Line. If inadequate response within 60 minutes, proceed to next-line agent or contact provider if no further options ordered. Patient should allow tablet to dissolve on tongue. Do not remove from blister pack until just before administering. polyethylene glycol (PEG) 3350 (Miralax) packet 17 g 17 g, Oral, Daily PRN, constipation, Starting on Sun05/22/23 at 428, 1st line for treatment of constipation - give scheduled if no bowel movement in past 24 hours. Linked Groups Order Group 1: acetaminophen (Tylenol) tablet 650 mgJump to med 650 mg, Oral, Every 6 hours PRN, mild pain (1-3), fever, For temp greater than 100.4 F (38 C), Starting on Sun05/22/23 at 0429, Maximum dose of acetaminophen is 4000 mg from all sources in 24 hours. Or acetaminophen (Tylenol) suppository 650 mgJump to med 650 mg, Rectal, Every 6 hours PRN, mild pain (1-3), fever, For temp greater than 100.4 F (38 C), Starting on Sun05/22/23 at 042, Administer if oral route cannot be used. Maximum dose of acetaminophen is 4000 mg from all sources in 24 hours. Group 2: ondansetron ODT (Zofran-ODT) disintegrating tablet 4 mgJump to med 4 mg, Oral, Every 8 hours PRN, nausea, vomiting, Starting on Sun05/22/23 at 0429, 1st Line. If inadequate response within 60 minutes, proceed to next-line agent or contact provider if no further options ordered. Patient should allow tablet to dissolve on tongue. Do not remove from blister pack until just before administering. Or ondansetron (Zofran) injection 4 mgJump to med 4 mg, IntraVENous, Every 6 hours PRN, nausea, vomiting, Starting on Sun05/22/23 at 0429, 1st Line. Give IV if patient is unable to take orally. If inadequate response within 60 minutes, proceed to next-line agent or contact provider if no further options ordered. Care Teams (unrecognized sec tion and content) Team Status: Inactive Member Role Status Dates Willie PITTS Attending Provider Active Team Status: Inactive Member Role Status Dates Willie PITTS Attending Provider, Referring Provi mattie Active Team Status: Active Member Role Status Dates Willie PITTS Attending Provider Active Building Admin Relationship Specialty Start Date End Date Gregorio Black MD [address] [place] [id number] PCP - General 10/09/17 Team Status: Inactive Member Role Status Dates Willie PITTS Attending Provider Active Sta rt: 2024 End: 2024 Team Status: Inactive Member Role Status Dates Willie PITTS Attending Provider Active Sta rt: June 09, 2024 End: June 09, 2024 Team Status: Inactive Member Role Status Dates Willie PITTS Attending Provider Active Sta rt: July 07, 2024 End: July 07, 2024 Team Status: Inactive Member Role Status Dates Willie PITTS Attending Provider Active Sta rt: July 28, 2024 End: July 28, 2024 Willie PITTS Referring Provider Active Sta rt: July 28, 2024 End: July 28, 2024 Team Status: Inactive Member Role Status Dates Willie PITTS Attending Provider Active Sta rt: August 07, 2024 End: August 07, 2024 Team Status: Inactive Member Role Status Dates Willie PITTS Attending Provider Active Sta rt: September 02, 2024 End: September 02, 2024 Willie PITTS Referring Provider Active Sta rt: September 02, 2024 End: September 02, 2024 Team Status: Inactive Member Role Status Dates Willie PITTS Attending Provider Active Sta rt: November 05, 2024 End: November 05, 2024 Team Status: Active Member Role Status Dates Willie PITTS Attending Provider Active Sta rt: December 01, 2024 Team Status: Inactive Member Role Status Dates Willie PITTS Attending Provider Active Sta rt: December 04, 2024 End: December 04, 2024 Team Status: Inactive Member Role/Relationship Status Dates Willie PITTS Attending Provider Active Sta rt: November 05, 2024 End: November 05, 2024 Team Status: Inactive Member Role/Relationship Status Dates Willie PITTS Attending Provider Active Sta rt: December 01, 2024 End: December 01, 2024 Team Status: Inactive Member Role/Relationship Status Dates Willie PITTS Attending Provider Active Sta rt: December 04, 2024 End: December 04, 2024 Goals (unrecognized section and content) Goals may be documented in a n alternate sectionGoals may be documented in an alternate sectionGoals may be documented in an alternate sectionGoals may be documented in an alternate sectionGoals may be documented in an alternate sectionGoals may be documented in an alternate sectionGoals may be documented in an alternate sectionGoals may be documented in an alternate section FOR RECORDS PERTAINING TO PATIENTS WHO ARE OR HAVE BEEN ENROLLED IN A CHEMICAL DEPENDENCY/SUBSTANCEABUSE PROGRAM, SOME INFORMATION MAY BE OMITTED. This clinical summary was aggregated from multiple sources. Caution should be exercised in using it in the provision of clinical care. This summary normalizes information from multiple sources, and as a consequence, information in this document may materially change the coding, format and clinical context of patient data. In addition, data may be omitted in some cases. CLINICAL DECISIONS SHOULD BE BASED ON THE PRIMARY CLINICAL RECORDS. [facility] [employer] [facility]. provides no warranty or guarantee of the accuracy or completeness of information in this document.
== END | disposition home or self-care (01) ==
LOC: OLS.SANC 05:00
PROVIDERS: Visit Provider Internal Medicine
DX: G35 Multiple sclerosis (principal); M62.82 Rhabdomyolysis
CPT/HCPCS: 36415; 83036

== ENCOUNTER → 2025-03-03 | Outpatient (REF) | payer MEDICAID, SELFPAY ==
[2025-03-03 09:15] LABS: Hematocrit 42.1 % (40-54); Hemoglobin 13.3 g/dL (13.0-16.5); Mean Corp Hgb Conc 31.6 g/dL (32-36); Mean Corpuscular Volume 88.4 fL (80-94); Mean Platelet Vol. 10.4 fl (6.2-12.0); Platelet Count 298 K/mm3 (150-450); RBC Distribution Width CV 15.9 % (11.6-14.6); RBC Distribution Width SD 51.4 fl (35.1-43.9); Red Blood Count 4.76 M/mm3 (4.6-6.2); White Blood Count 7.3 K/mm3 (4.4-11.0)
[2025-03-03 09:36] LABS: Anion Gap 10 (5-15); BUN 9 mg/dL (4-19); BUN/Creat Ratio 9.0 RATIO (10-20); Calcium,Total 9.1 mg/dL (7.6-11.0); Carbon Dioxide 25.1 mmol/L (21.0-32.0); Chloride 105 mmol/L (98-108); Glucose 86 mg/dL (70-99); Potassium 3.9 mmol/L (3.3-5.1)
== END | disposition home or self-care (01) ==
LOC: OLS.SANC 05:00
PROVIDERS: Visit Provider Internal Medicine
DX: G35 Multiple sclerosis (principal)
CPT/HCPCS: 36415; 80048; 85027

== ENCOUNTER → 2025-07-01 05:20 | Outpatient (REF) | payer MEDICAID, SELFPAY ==
[2025-07-01 08:44] LABS: Hematocrit 43.2 % (40-54); Hemoglobin 13.9 g/dL (13.0-16.5); Mean Corp Hgb Conc 32.2 g/dL (32-36); Mean Corpuscular Volume 87.3 fL (80-94); Mean Platelet Vol. 10.4 fl (6.2-12.0); Platelet Count 300 K/mm3 (150-450); RBC Distribution Width CV 14.8 % (11.6-14.6); RBC Distribution Width SD 47.3 fl (35.1-43.9); Red Blood Count 4.95 M/mm3 (4.6-6.2); White Blood Count 7.4 K/mm3 (4.4-11.0)
[2025-07-01 09:02] LABS: Anion Gap 12 (5-15); BUN 9 mg/dL (4-19); BUN/Creat Ratio 8.2 RATIO (10-20); Calcium,Total 9.2 mg/dL (7.6-11.0); Carbon Dioxide 23.1 mmol/L (21.0-32.0); Chloride 104 mmol/L (98-108); Glucose 123 mg/dL (70-99); Potassium 3.9 mmol/L (3.3-5.1)
== END ==
LOC: OLS.SANC 05:20
PROVIDERS: Visit Provider Internal Medicine
DX: G35.D Multiple sclerosis, unspecified (principal); N17.1 Acute kidney failure with acute cortical necrosis
CPT/HCPCS: 36415; 80048; 85027